=== PATIENT | male | born 1960 | race Caucasian/White ===

== ENCOUNTER 2023-12-07 13:41 | Inpatient (IN) ==
[2023-12-07] MEDS: SODIUM CHLORIDE 0.9% 1,000 ML IV SCH ×2 (14:02→17:23)
--- NOTE | 2023-12-07 14:12 | Emergency Department Note ---
Impression & Plan ALAYNA (acute kidney injury), Sepsis, Severe dehydration, SBO (small bowel obstruction), Abnormal CT scan, pelvis, Acute renal failure ED Provider Note NAME: KISHAN MANN AGE: 63 SEX: M : 1960 ARRIVES VIA: Walk-In INFORMANT: Patient, patient's family ED PROVIDER(S): Sylvester Parkinson DO CHIEF COMPLAINT: Weakness HPI: The patient is a 63-year-old male who presented to the emergency department for an evaluation of generalized weakness. He has had several days of diarrhea. He has been having nausea vomiting as well. The patient denies having any fever. He denies having any upper or lower GI bleeding. The patient was seen by his family doctor initially. The patient continued to have worsening symptoms and today is having severe weakness. This is why the patient came to the emergency department today. The patient has a history of appendectomy many years ago. ROS: See above HPI for pertinent positives & negatives. A total of 10 systems reviewed and were otherwise negative. PAST MEDICAL HISTORY: See Below PAST SURGICAL HISTORY: See Below FAMILY HISTORY: See Below SOCIAL HISTORY: See Below HOME MEDICATIONS: See Below ALLERGIES: See Below VITALS: See Below PHYSICAL EXAMINATION: GENERAL: Is awake and alert. He is comfortable appearing. EYES: The conjunctivae are clear. The pupils are round and reactive. EARS, NOSE, MOUTH AND THROAT: The nose is without any evidence of any deformity. Mucous membranes are. NECK: The neck is nontender and supple. RESPIRATORY: Normal respiratory effort is noted there is no evidence of wheezing rhonchi or rales CARDIOVASCULAR: Regular rate and rhythm noted there no murmurs rubs or gallops normal S1 normal S2. GASTROINTESTINAL: The abdomen is soft. Abdomen is nontender. MUSCULOSKELETAL/EXTREMITIES: There is no evidence of gross deformity full range of motion is noted in the hips and shoulders. SKIN: There is no obvious evidence of any rash. There are no petechiae, pallor or cyanosis noted. NEUROLOGIC: Patient is awake alert and oriented x3 MEDICAL DECISION MAKING: The patient is a 63-year-old male who presented to the emergency department for an evaluation of generalized weakness. The patient has been having problems with diarrhea and vomiting over the course the last several days. The patient was brought directly to a resuscitation room. His blood pressure was very low. He was awake and alert. He does not have any specific complaints but given his low blood pressure a septic workup was undertaken. He was treated with vigorous IV fluids. He was also treated with IV antibiotics for possible sepsis. Consideration was made for an intra-abdominal source. Ultimately the patient was found to have signs of a partial small bowel obstruction. He may also have signs of metastatic disease on the CT. I discussed the patient's laboratory and radiographic studies with him and his family. I discussed his condition with the on-call [facility]. They have agreed to evaluate the patient. They also consulted surgery. The patient did have a Salvador catheter placed and started making urine eventually. He was feeling much better. Blood pressure improved. Triage Nursing notes reviewed. Prior medical records reviewed Vital Signs: reviewed and remarkable for initial hypotension and tachycardia. Differential diagnosis: Etiologies such as appendicitis, diverticulitis, obstruction, inflammatory bowel disease, renal colic, PUD, biliary pathology, pancreatitis, mesenteric ischemia, aortic pathology, infections, genitourinary, UTI, perforated viscus, as well as others were entertained. ER treatment provided: See below Diagnostics interpreted by me: ECG: EKG was obtained in the emergency department. My interpretation is normal sinus rhythm at 98 bpm. There was no ectopy. Poor R wave progression was noted. No previous tracing was available. Cardiac Monitoring: An order was placed for continuous cardiac monitoring. The monitor shows a rate of 104 bpm with sinus rhythm. Laboratory studies: As stated above and show below. Imaging studies: See below. Radiographic imaging was reviewed by myself Consultation(s): I did kacie this case with Keiko who is on for the [facility] group. ED COURSE: Procedures: none Critical Care: I have personally spent greater than 45 minutes of critical care time in the direct management of this patient. This includes bedside care, interpretation of diagnostic studies, and testing, discussion with consultants, patient, and family members, and other required patient management activities. This 45 minutes is in excess of all separately billable procedures. Past Med/Surg History Problem List (Updated 12/07/23 @ 18:36 by Sylvester Parkinson DO) Acute renal failure (Acute) ALAYNA (acute kidney injury) (Acute) Abnormal CT scan, pelvis (Acute) SBO (small bowel obstruction) (Acute) Severe dehydration (Acute) Sepsis (Acute) Medical History (Updated 12/07/23 @ 18:36 by Sylvester Parkinson DO) HTN (hypertension) GERD (gastroesophageal reflux disease) Obesity (BMI 30-39.9) Diabetes mellitus, type II Surgical History (Updated 12/07/23 @ 16:41 by Keiko Mooney PA-C) History of appendectomy Family History Other Liver cancer Social History Smoking Status: Never smoker Hx Alcohol Use: No Hx Substance Use: No Preferred Language: Nigerian Communication Ability: Effective Retail Maintenance Technician Required: No Beliefs That Will Affect Care: None Current Living Situation: Spouse Other Information That Helps Us Care for You: No Feels Safe at Home: Yes Safety Concerns: Feels Safe At This Time Assistive Devices: CPAP Allergies Allergies Allergy/AdvReac Type Severity Reaction Status Date / Time Penicillins Allergy Unknown rash as a Verified 12/07/23 14:53 kid Home Meds Home Medications Medication Instructions Recorded Confirmed atorvastatin 20 mg tablet 20 mg PO QAM 12/07/23 12/07/23 dulaglutide 0.75 mg/0.5 mL 0.75 mg subcut WK 12/07/23 12/07/23 subcutaneous pen injector (Trulicity) lisinopril 10 1 tab PO QAM 12/07/23 12/07/23 mg-hydrochlorothiazide 12.5 mg tablet omeprazole 40 mg capsule,delayed 40 mg PO DAILYBB 12/07/23 12/07/23 release ondansetron 4 mg disintegrating 4 mg translingual Q8 PRN Nausea 12/07/23 12/07/23 tablet Results & Data (ED) Vital Signs Vital Signs - 24 hr 12/07/23 13:42 12/07/23 13:59 12/07/23 14:20 Temperature 36.6 C Temperature Source Temporal Artery Scan Pulse Rate 68 96 H Pulse Rate [Apical] Pulse Rate from SpO2 Sensor Respiratory Rate 18 Blood Pressure 52/35 L Blood Pressure [Left Arm] 85/54 L Blood Pressure Mean 40 Blood Pressure Mean [Left Arm] 64 Pulse Oximetry 100 97 Oxygen Delivery Method Room Air Sepsis Recent Fever Within 48 Hours No Sepsis New/Unexplained Change in Mental Status N/A Sepsis Action Taken by Nursing No Action Required 12/07/23 14:24 12/07/23 14:55 12/07/23 15:03 Temperature Temperature Source Pulse Rate Pulse Rate [Apical] 90 94 H Pulse Rate from SpO2 Sensor Respiratory Rate 20 22 Blood Pressure Blood Pressure [Left Arm] 85/54 L 105/64 99/61 L Blood Pressure Mean Blood Pressure Mean [Left Arm] 64 77 73 Pulse Oximetry 97 95 Oxygen Delivery Method Room Air Sepsis Recent Fever Within 48 Hours Sepsis New/Unexplained Change in Mental Status Sepsis Action Taken by Nursing 12/07/23 15:33 Temperature Temperature Source Pulse Rate 92 H Pulse Rate [Apical] Pulse Rate from SpO2 Sensor 91 H Respiratory Rate 17 Blood Pressure 105/56 L Blood Pressure [Left Arm] Blood Pressure Mean 72 Blood Pressure Mean [Left Arm] Pulse Oximetry 100 Oxygen Delivery Method Sepsis Recent Fever Within 48 Hours Sepsis New/Unexplained Change in Mental Status Sepsis Action Taken by Group Home Medications Current Medication List: was personally reviewed by me Laboratory Data Attestation: I reviewed the patient's lab results. 12/07/23 Unknown 12/07/23 Unknown Lab Results 12/07/23 12/07/23 12/07/23 Range/Units 14:07 14:38 15:50 POC Hgb 12.9 L (14.0-18.0) g/dl POC Hct 38 L (42-52) % VBG pH 7.31 L (7.36-7.41) VBG pCO2 18 L (38-50) mmHg VBG pO2 24 mmHg VBG HCO3 9 mmol/L VBG O2 Saturation < 60.0 % VBG Base Excess -15.7 mEq/L POC Sodium 127 L (135-144) mmol/L POC Potassium 3.7 (3.3-5.0) mmol/L POC Chloride 91 L (101-112) mmol/L POC Total CO2 19 L (24-31) mmol/L POC Anion Gap 22.0 (16-25) mmol/L POC BUN 54 H (7-18) mg/dl POC Creatinine 6.1 H* (0.6-1.3) mg/dl POC Glucose (other) 149 H (70-99) mg/dl Lactate (0.4-2.0) mmol/L POC Ioniz Calcium Ruddy 1.02 L (1.12-1.32) mmol/l Urine Color Dark Yellow Urine Appearance Cloudy A (Clear) Urine pH 5.0 (4.5-7.5) Ur Specific [place] 1.020 (1.000-1.030) Urine Protein 2+ H (Negative) Urine Glucose (UA) Negative (Negative) Urine Ketones Trace H (Negative) Urine Blood Negative (Negative) Urine Nitrite Negative (Negative) Urine Bilirubin Negative (Negative) Urine Urobilinogen Negative (Negative) Ur Leukocyte Esterase 1+ H (Negative) Urine WBC (Auto) 6-10 H (0-5) /hpf Urine RBC (Auto) 11-20 H (0-2) /hpf U Hyaline Cast (Auto) >20 H (0-2) /lpf U Epithel Cells (Auto) 3-5 H (0-2) /hpf Urine Bacteria (Auto) None Seen (None Seen) Hyaline Casts Present A (None Presnt) /lpf 12/07/23 Range/Units 16:05 POC Hgb (14.0-18.0) g/dl POC Hct (42-52) % VBG pH (7.36-7.41) VBG pCO2 (38-50) mmHg VBG pO2 mmHg VBG HCO3 mmol/L VBG O2 Saturation % VBG Base Excess mEq/L POC Sodium (135-144) mmol/L POC Potassium (3.3-5.0) mmol/L POC Chloride (101-112) mmol/L POC Total CO2 (24-31) mmol/L POC Anion Gap (16-25) mmol/L POC BUN (7-18) mg/dl POC Creatinine (0.6-1.3) mg/dl POC Glucose (other) (70-99) mg/dl Lactate 1.9 (0.4-2.0) mmol/L POC Ioniz Calcium Ruddy (1.12-1.32) mmol/l Urine Color Urine Appearance (Clear) Urine pH (4.5-7.5) Ur Specific [place] (1.000-1.030) Urine Protein (Negative) Urine Glucose (UA) (Negative) Urine Ketones (Negative) Urine Blood (Negative) Urine Nitrite (Negative) Urine Bilirubin (Negative) Urine Urobilinogen (Negative) Ur Leukocyte Esterase (Negative) Urine WBC (Auto) (0-5) /hpf Urine RBC (Auto) (0-2) /hpf U Hyaline Cast (Auto) (0-2) /lpf U Epithel Cells (Auto) (0-2) /hpf Urine Bacteria (Auto) (None Seen) Hyaline Casts (None Presnt) /lpf Administered Medications Sodium Chloride (Nss) 1,000 mls @ 125 mls/hr IV .Q8H RANJIT Stop: 01/06/24 16:29 Last Admin: 12/07/23 17:23 Dose: 125 mls/hr Documented By: MR Discontinued Medications Sodium Chloride (Nss) 1,000 mls @ 999 mls/hr IV .Q1H1M RANJIT Stop: 12/07/23 16:00 Last Infusion: 12/07/23 16:29 Dose: Infused Documented By: Admin: 12/07/23 14:21 Dose: 999 mls/hr Documented By: Infusion: 12/07/23 14:21 Dose: Infused Documented By: Admin: 12/07/23 14:02 Dose: 999 mls/hr Documented By: HS Lactated Ringer's (Lr) 1,000 mls @ 999 mls/hr IV .Q1H1M ONE Stop: 12/07/23 15:48 Last Infusion: 12/07/23 17:07 Dose: Infused Documented By: Admin: 12/07/23 15:04 Dose: 999 mls/hr Documented By: HS Cefepime HCl (Maxipime 2000mg) 2,000 mg in 20 mls @ 5 mls/min IV NOW STA; Protocol Stop: 12/07/23 14:52 Last Admin: 12/07/23 14:59 Dose: 5 mls/min Documented By: HS Metronidazole (Flagyl) 500 mg in 100 mls @ 100 mls/hr IV NOW STA; Protocol Stop: 12/07/23 15:48 Last Infusion: 12/07/23 16:29 Dose: Infused Documented By: Admin: 12/07/23 15:00 Dose: 100 mls/hr Documented By: HS Imaging Data Attestation: I personally reviewed and interpreted this imaging study as follows: My Impression: 1 view chest x-ray was obtained in the emergency department. My interpretation is no free air or signs of infiltrate, final report below. CT of the abdomen and pelvis was obtained in the emergency department. My interpretation is dilated loops of small bowel, no free air, final report below. Radiologist's Impression: Chest X-Ray 12/07/23 13:59 XR chest 1V portable CLINICAL HISTORY: Sepsis TECHNIQUE: Single frontal radiograph of the chest was obtained. Comparison: None available at the time of this dictation. FINDINGS: Exam is limited by underpenetration. The cardiomediastinal silhouette is normal. The lungs are clear. No evidence of pleural effusion or pneumothorax. IMPRESSION: No acute abnormalities and in particular no radiographic evidence of pneumonia. ACT 112: Negative or not required by law. Electronically signed by: Daren Velazco M.D. 12/07/2023 2:09 PM Abdomen/Pelvis CT 12/07/23 14:09 CT abd pelvis wo con CLINICAL HISTORY: renal failure TECHNIQUE: Helical axial images of the abdomen and pelvis were obtained. Automated dose lowering techniques and/or adjustment according to patient size were utilized for this exam. This exam was performed without intravenous contrast. CT DOSE: 1732.54 mGy.cm COMPARISON: None available at the time of this dictation. FINDINGS: Lower chest: No acute abnormality. Liver: Unremarkable. No focal lesions are seen. Gallbladder and biliary tree: No calcified gallstones. Normal caliber wall. No intra- or extrahepatic biliary ductal dilation. Pancreas: Fatty replacement of the pancreas is seen. Spleen: Unremarkable. Adrenals: Unremarkable. Kidneys and ureters: Unremarkable. Bladder: Limited evaluation due to underdistention. Reproductive organs: Unremarkable. Bowel: Diverticulosis is seen without diverticulitis. The appendix is normal. Multiple small bowel loops are dilated measuring up to 42 mm in diameter. No transition point is seen. Lymph nodes Retroperitoneal: Unremarkable. Pelvic: Unremarkable. Mesenteric: Subcentimeter lymph nodes are noted. Peritoneum: Fat stranding is seen about ill-defined mid abdominal soft tissue density measuring 41 x 34 mm. There is also an ill-defined soft tissue density in the left posterior bowel. Vessels: Atherosclerotic calcifications are seen. Abdominal wall: Unremarkable. Bones: Unremarkable. IMPRESSION: 1. Partial small bowel obstruction is seen. The large bowel is not completely under distended and no definite transition point is seen. 2. 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 These may be related to development of obstruction. ACT 112: Positive. There are findings on this exam that require communication between the performing entity and the patient following Patient Test Result Information Act [place] Act 112) guidelines. Electronically signed by: Daren Velazco M.D. 12/07/2023 3:06 PM Discharge Plan Visit Data Chief Complaint: Flu Like Symptoms Stated Complaint: NAUSEA, VOMITING, DIARRHEA, WEIGHT LOSS/40LBS ED Provider: Sylvester Parkinson Discharge Problem: ALAYNA (acute kidney injury), Sepsis, Severe dehydration, SBO (small bowel obstruction), Abnormal CT scan, pelvis, Acute renal failure Patient Disposition: Admitted As Inpatient Discharge Instructions Interventions: ED Discharge Assessment Last Done: 12/07/23 18:07 Discharge Problem: Sepsis Qualifiers: Sepsis type: sepsis due to unspecified organism Sepsis acute organ dysfunction status: unspecified Qualified Code(s): A41.9 - Sepsis, unspecified organism Acute renal failure Qualifiers: Acute renal failure type: unspecified Qualified Code(s): N17.9 - Acute kidney failure, unspecified
[2023-12-07 14:20] LABS: iSTAT Creatinine 6.1 mg/dl (0.6-1.3); iSTAT Hemoglobin 12.9 g/dl (14.0-18.0); iSTAT Ionized Calcium 1.02 mmol/l (1.12-1.32); iSTAT Potassium 3.7 mmol/L (3.3-5.0)
[2023-12-07 14:26] LABS: Hematocrit (blood only) 35.6 % (42.0-52.0); Hemoglobin 11.9 g/dl (14.0-18.0); Mean Corpuscular Hemoglobin 25.4 pg (25.0-34.0); Mean Corpuscular Hgb Conc 33.4 g/dL (32.0-36.0); Mean Corpuscular Volume 76.1 fL (80.0-100.0); Mean Platelet Volume 11.5 fL (9.4-12.4); Platelet Count 362 K/uL (130-400); RDW Coefficient of Variation 19.8 % (11.5-14.5); RDW Standard Deviation 52.8 fL (36.4-46.3); Red Blood Count 4.68 M/uL (4.70-6.10); White Blood Count 24.48 K/ul (4.8-10.8)
[2023-12-07 14:43] LABS: Base Excess VBG -15.7 mEq/L; HCO3 VBG 9 mmol/L; Oxygen Saturation VBG < 60.0 %; PCO2 VBG 18 mmHg (38-50); PO2 VBG 24 mmHg; pH VBG 7.31 (7.36-7.41)
[2023-12-07 14:43] LABS: Basophils # (auto) 0.08 K/uL (0.00-0.20); Basophils % (auto) 0.3 %; Dohle Bodies 1+; Echinocytes 1+; Eosinophils # (auto) 0.01 K/uL (0.00-0.50); Immature Granulocytes # (auto) 0.14 K/uL (0.01-0.20); Immature Granulocytes % (auto) 0.6 %; Lymphocytes # (auto) 1.99 K/uL (1.20-3.40); Lymphocytes % (auto) 8.1 %; Monocytes # (auto) 2.07 K/uL (0.11-0.59); Monocytes % (auto) 8.5 %; Neutrophils # (auto) 20.19 K/uL (1.40-6.50); Neutrophils % (auto) 82.5 %; Toxic Vacuolation 1+
[2023-12-07 14:47] LABS: Albumin Level 3.6 gm/dl (3.4-5.0); BUN Creatinine Ratio 11.2 (10-20); Bilirubin Direct 0.4 mg/dl (0-0.2); Calcium 8.5 mg/dl (8.6-10.3); Creatinine Clr Calc Pharmacy 18.3 ml/min; Magnesium 1.7 mg/dl (1.7-2.4); Potassium 3.7 mmol/L (3.5-5.1); Total Protein 7.7 gm/dl (6.0-8.3); Troponin I High Sensitivity 16.7 pg/ml (0-20)
[2023-12-07] MEDS ORDERED: cefOXitin 2,000 MG/60 ML BAG IV STA (14:47)
[2023-12-07] MEDS: CEFEPIME 2000MG 2,000 MG/20 ML SYR IV STA (14:59)
[2023-12-07] MEDS: metroNIDAZOLE 500 MG/100 ML BAG IV STA (15:00)
[2023-12-07] MEDS: LACTATED RINGER'S 1,000 ML IV ONE (15:04)
--- NOTE | 2023-12-07 15:07 | CT Scan Report ---
CT abd pelvis wo con CLINICAL HISTORY: renal failure TECHNIQUE: Helical axial images of the abdomen and pelvis were obtained. Automated dose lowering tech niques and/or adjustment according to patient size were utilized for this exam. This exam was perfor med without intravenous contrast. CT DOSE: 1732.54 mGy.cm COMPARISON: None available at the time of this dictation. FINDINGS: Lower chest: No acute abnormality. Liver: Unremarkable. No focal lesions are seen. Gallbladder and biliary tree: No calcified gallstones. Normal caliber wall. No intra- or extrahepatic biliary ductal dilation. Pancreas: Fatty replacement of the pancreas is seen. Spleen: Unremarkable. Adrenals: Unremarkable. Kidneys and ureters: Unremarkable. Bladder: Limited evaluation due to underdistention. Reproductive organs: Unremarkable. Bowel: Diverticulosis is seen without diverticulitis. The appendix is normal. Multiple small bowel lo ops are dilated measuring up to 42 mm in diameter. No transition point is seen. Lymph nodes Retroperitoneal: Unremarkable. Pelvic: Unremarkable. Mesenteric: Subcentimeter lymph nodes are noted. Peritoneum: Fat stranding is seen about ill-defined mid abdominal soft tissue density measuring 41 x 34 mm. There is also an ill-defined soft tissue density in the left posterior bowel. Vessels: Atherosclerotic calcifications are seen. Abdominal wall: Unremarkable. Bones: Unremarkable. IMPRESSION: 1. Partial small bowel obstruction is seen. The large bowel is not completely under distended and no definite transition point is seen. 2. There are ill-defined mesenteric densities concerning for peritoneal deposits of metastatic disea se with unknown primary. These may be related to development of obstruction. ACT 112: Positive. There are findings on this exam that require communication between the performing entity and the patient following Patient Test Result Information Act [place] Act 112) guidelines. Electronically signed by: Daren Velazco M.D. 12/07/2023 3:06 PM
[2023-12-07 15:31] LABS: INR 1.2 (0.9-1.1); Partial Thromboplastin Ratio 1.4; Partial Thromboplastin Time 37 Seconds (21-31); Prothrombin Time 12.8 Seconds (9.0-12.0)
--- NOTE | 2023-12-07 15:47 | History & Physical Report ---
Date of Service December 07, 2023 Assessment & Plan (1) Sepsis: (2) Severe dehydration: (3) SBO (small bowel obstruction): (4) Abnormal CT scan, pelvis: (5) ALAYNA (acute kidney injury): (6) HTN (hypertension): (7) Diabetes mellitus, type II: (8) GERD (gastroesophageal reflux disease): Plan This is a 63-year-old male with PMH of type 2 diabetes on Trulicity, dyslipidemia, RANDALL, hypertension, morbid obesity and other medical problems listed below who presents with 1 week of diarrhea, nausea and vomiting and found to have sepsis 2/2 gastroenteritis, partial SBO, ALAYNA and abnormal CT abd/pelvis. Sepsis Gastroenteritis ? Partial SBO BP initially 50/32 in triage, improved to 99/61 after 3 L fluid resuscitation. Continue NSS @ 125 ml/hr for now Diarrhea 1 wk prior, vomiting and diarrhea resumed yesterday Poor PO intake x [address] abd/pelvis with partial small bowel obstruction is seen. The large bowel is not completely under distended and no definite transition point is seen Continue Rocephin and Flagyl for ? GI illness Follow pending stool cx, c diff pending NPO for now Discussed case with gen surg who will evaluate in ED Abnormal CT abd/pelvis There are ill-defined mesenteric densities concerning for peritoneal deposits of metastatic disease with unknown primary. These may be related to development of obstruction 40 # weight loss in 6 months but has been on Trulicity Study is limited without contrast but concerning for metastatic disease of unknown primary Heme onc consulted for further guidance Acute kidney injury Cr 5.38 today in setting of severe dehydration Expect improvement with fluid resuscitation Continue NSS @ 125 ml/hr Hold hctz, lisinopril Repeating BMP @ 1999 Routine nephro consult Anion gap metabolic acidosis AG 19 in setting of poor PO intake for last week Expect improvement with fluid resuscitation Repeat BMP @ 2000 DM II A1c 7.9 in Oct 2023 Hold Trulicity BSG AC HS DVT Ppx: SQ heparin Code status: FULL PCP: Jennifer Dispo: Admitted to PCU Patient seen in collaboration with Dr. Roger. Please see addendum. I spent a total of 75 minutes coordinating, documenting, and providing care for this patient excluding time spent in the performance of separately billed services. History of Present Illness Chief Complaint: Vomiting, diarrhea Primary Care Provider: Ean Rodriguez MD This is a 63-year-old male with PMH of type 2 diabetes on Trulicity, dyslipidemia, RANDALL, hypertension, morbid obesity and other medical problems listed below who presents with 1 week of diarrhea, nausea and vomiting. Patient was seen in primary care office on 11/29 with diarrhea, abdominal cramping and loss of appetite that was felt to be consistent with gastroenteritis. GI symptoms, other than decreased appetite resolved after 1 day until yesterday, when he had 2 episodes of emesis. Describes the first as bilious and the second as a brown color. Denies hemetemesis. Then today endorses 3 large episodes of light brown, watery diarrhea prompting ED presentation. Was initially found to be severely hypotensive with BP in triage 50/32. Recevied 3L total IV fluid bolus with improved BP to 99/61. Just started to have urine output that is dark brown. Endorsing some vague discomfort in epigastrium but no pain. Denies F/C, lightheadedness, headache, CP, SOB, dysuria or constipation. No vomiting yet today and no recurrent diarrhea since arrival. Endorses a 40 pound weight loss since March but has also been on Trulicity. Denies personal known cancer history. Father + liver cancer. Allergies Allergy/AdvReac Type Severity Reaction Status Date / Time Penicillins Allergy Unknown rash as a Verified 12/07/23 14:53 kid Home Medications Medication Instructions Recorded Confirmed Type atorvastatin 20 mg tablet 20 mg PO QAM 12/07/23 12/07/23 History dulaglutide 0.75 mg/0.5 mL 0.75 mg subcut WK 12/07/23 12/07/23 History subcutaneous pen injector (Trulicity) lisinopril 10 1 tab PO QAM 12/07/23 12/07/23 History mg-hydrochlorothiazide 12.5 mg tablet omeprazole 40 mg capsule,delayed 40 mg PO DAILYBB 12/07/23 12/07/23 History release ondansetron 4 mg disintegrating 4 mg translingual Q8 PRN Nausea 12/07/23 12/07/23 History tablet Past Med/Surg History Problem List (Updated 12/07/23 @ 18:51 by Milady Kiser MD) Microcytic anemia Acute renal failure (Acute) ALAYNA (acute kidney injury) (Acute) Abnormal CT scan, pelvis (Acute) SBO (small bowel obstruction) (Acute) Severe dehydration (Acute) Sepsis (Acute) Medical History (Updated 12/07/23 @ 18:51 by Milady Kiser MD) HTN (hypertension) GERD (gastroesophageal reflux disease) Obesity (BMI 30-39.9) Diabetes mellitus, type II Surgical History (Updated 12/07/23 @ 16:41 by Keiko Mooney PA-C) History of appendectomy Family History Other Liver cancer Social History Smoking Status: Never smoker Hx Alcohol Use: No Hx Substance Use: No Preferred Language: Frisian Communication Ability: Effective 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 Physical Exam Physical Exam: Please see Dr. Roger's addendum for physical exam. Results & Data Results & Data Vital Signs (Past 12 Hours) Vital Signs Temp Pulse Pulse Resp BP BP Pulse Ox 12/07/23 15:03 94 H 22 99/61 L 95 12/07/23 14:55 105/64 12/07/23 14:24 90 20 85/54 L 97 12/07/23 14:20 85/54 L 97 12/07/23 13:59 96 H 12/07/23 13:42 36.6 C 68 18 52/35 L 100 O2 Del Method 12/07/23 15:03 12/07/23 14:55 12/07/23 14:24 Room Air 12/07/23 14:20 12/07/23 13:59 12/07/23 13:42 Room Air Laboratory Results Short CBC 12/07/23 Range/Units Unknown WBC 24.48 H (4.8-10.8) K/ul Hgb 11.9 L (14.0-18.0) g/dl Hct 35.6 L (42.0-52.0) % Plt Count 362 (130-400) K/uL BMP 12/07/23 Unknown Sodium 128 L Potassium 3.7 Chloride 89 L Carbon Dioxide 20 L BUN 60 H Creatinine 5.38 H* Glucose 150 H Calcium 8.5 L Liver Function 12/07/23 Range/Units Unknown Total Bilirubin 1.0 (0.2-1.0) mg/dl Direct Bilirubin 0.4 H (0-0.2) mg/dl AST 13 (13-39) U/L ALT 12 (7-52) U/L Alkaline Phosphatase 107 H (34-104) U/L Albumin 3.6 (3.4-5.0) gm/dl Diagnostic Findings Chest X-Ray 12/07/23 13:59 XR chest 1V portable CLINICAL HISTORY: Sepsis TECHNIQUE: Single frontal radiograph of the chest was obtained. Comparison: None available at the time of this dictation. FINDINGS: Exam is limited by underpenetration. The cardiomediastinal silhouette is normal. The lungs are clear. No evidence of pleural effusion or pneumothorax. IMPRESSION: No acute abnormalities and in particular no radiographic evidence of pneumonia. ACT 112: Negative or not required by law. Electronically signed by: Daren Velazco M.D. 12/07/2023 2:09 PM Abdomen/Pelvis CT 12/07/23 14:09 CT abd pelvis wo con CLINICAL HISTORY: renal failure TECHNIQUE: Helical axial images of the abdomen and pelvis were obtained. Automated dose lowering techniques and/or adjustment according to patient size were utilized for this exam. This exam was performed without intravenous contrast. CT DOSE: 1732.54 mGy.cm COMPARISON: None available at the time of this dictation. FINDINGS: Lower chest: No acute abnormality. Liver: Unremarkable. No focal lesions are seen. Gallbladder and biliary tree: No calcified gallstones. Normal caliber wall. No intra- or extrahepatic biliary ductal dilation. Pancreas: Fatty replacement of the pancreas is seen. Spleen: Unremarkable. Adrenals: Unremarkable. Kidneys and ureters: Unremarkable. Bladder: Limited evaluation due to underdistention. Reproductive organs: Unremarkable. Bowel: Diverticulosis is seen without diverticulitis. The appendix is normal. Multiple small bowel loops are dilated measuring up to 42 mm in diameter. No transition point is seen. Lymph nodes Retroperitoneal: Unremarkable. Pelvic: Unremarkable. Mesenteric: Subcentimeter lymph nodes are noted. Peritoneum: Fat stranding is seen about ill-defined mid abdominal soft tissue density measuring 41 x 34 mm. There is also an ill-defined soft tissue density in the left posterior bowel. Vessels: Atherosclerotic calcifications are seen. Abdominal wall: Unremarkable. Bones: Unremarkable. IMPRESSION: 1. Partial small bowel obstruction is seen. The large bowel is not completely under distended and no definite transition point is seen. 2. 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 These may be related to development of obstruction. ACT 112: Positive. There are findings on this exam that require communication between the performing entity and the patient following Patient Test Result Information Act [place] Act 112) guidelines. Electronically signed by: Daren Velazco M.D. 12/07/2023 3:06 PM Supervising Physician Co-Signing Physician Notes 63 yo M w/ PMH Of T2DM, RANDALL, HTN, Morbid obesity, GERD presented to ED with complain of abdominal issues and generalized weakness. Pt reports he had diarrhea for 1 day, about a week ago, then had vomiting yesterday and about 3 diarrhea today AM which triggered him to come to ED. He reports he had poor appetite all along last 7-8 days. He denies Fever/sore throat/cough/chest pain /palpitation. He reports belly pain but non tender on bedside exam. He denies pain and burning while passing urine. Family confirms that pt feels/looks significantly better than at presentation during bedside exam. He denies smoking, reports few times/month of alc drink, denies recreational drug use. Full code per d/w pt and his family at bedside. Active problems: Gastroenteritis/Sepsis 2/2 gastroenteritis: stool pcr, npo, ivf - nss at 125 ml/hr, rocephin and flagyl for now. received cefepime and flagyl at ed. ALAYNA: Cr 0.9 in mar 2023, admitting cr of 5.38. likely prerenal given poor po intake and diarrhea/vomiting. s/p 1 L IVF in ED, c/w NSS at 125 ml/hr. Hold HCTZ lisinopril. Repeat BMP at 2000hrs Mild hyponatremia/AGMA: Likely secondary to poor p.o. intake, continue with IV fluid, expect to improve with improvement in hydration. Partial small bowel obstruction: Noted in CTAP, general surgery consult, n.p.o., IV fluids, abdomen nontender on exam. Abnormal CTAP: Ill-defined mesenteric densities concerning for peritoneal deposits of metastatic disease with unknown primary. Given acute kidney injury we are limited with contrast use at this point. Further studies once renal function improves, oncology consult for guidance w/ w/u. Diabetes: Sliding scale, hold Trulicity. Leucocytosis and increased blood lactate level: iso gastroenteritis, procal elevated. c/w rocephin and flagyl. follow admitting blood culture. On exam: GENERAL: Alert and oriented x3. NAD, on RA. appear weak/frail. Morbid obese. HEENT: No pallor, no icterus. Pupils equal, round and reactive to light. Oral mucosa dry. NECK: No JVD, no neck masses. HEART: S1 and S2 heard. Regular rate and rhythm. HR in 90s. No murmur, no gallop. RESPIRATORY SYSTEM: Normal AP diameter. No accessory muscle use. No wheezing, no crackles. ABDOMEN: Soft, bowel sounds present, nontender, no distention. CENTRAL NERVOUS SYSTEM: No facial droop. Speech is clear. Obeys simple commands. Moves extremities. EXTREMITIES: No edema, no erythema seen. UC w/ darker urine x minimal collection in bag. I have seen and examined the patient and have discussed the case with the provider above. I agree with the assessment and plan as stated. Time spent: 40 min
--- NOTE | 2023-12-07 16:13 | Surgery Consultation ---
Date of Consultation December 07, 2023 Assessment & Plan (1) Abnormal CT scan, pelvis: (2) ALAYNA (acute kidney injury): (3) SBO (small bowel obstruction): (4) Sepsis: (5) Severe dehydration: 63-year-old male with a history of diarrhea starting on November 29 with subsequent low appetite, fatigue, weakness, nausea and vomiting that started yesterday presenting to the emergency room with generalized weakness and was found to have significant hypotension with systolic blood pressure in the 50s. CT scan of the abdomen pelvis without contrast due to acute kidney injury showing dilated small intestine up to 4 cm however no transition zone concerning for possible partial small bowel obstruction. There is also evidence of mesenteric masses which could be consistent with metastatic disease of unknown primary. He is currently stable blood pressure improved after 2 L of IV fluids his abdomen is not distended and is currently not having any abdominal pain. Abdominal examination is benign. There is no acute surgical intervention required at this time. Recommend conservative management for possible partial small bowel obstruction however less likely given patient's ongoing diarrhea. Recommend n.p.o. for bowel rest, IV fluids, pain management and antiemetics as needed. Further medical and oncological workup for the mesenteric masses. May want to consider IR biopsy for minimally invasive procedure. Will follow along. Dr. Anguiano has seen and examined patient and agrees with above History of Present Illness Reason for Consultation: SBO Requesting Physician: Keiko Mooney PA-C Attending Physician: MD Kana History of Present Illness This is a 63-year-old male with a past medical history of type 2 diabetes on Trulicity, dyslipidemia, hypertension, morbid obesity and other medical problems who presented to the emergency room with 1 week of diarrhea that started on November 29 and family doctor felt it was consistent with gastroenteritis. He then developed nausea and vomiting yesterday and then diarrhea again today. he presented to the emergency room with increasing weakness and was found to have a systolic blood pressure of 50. He is status post 2 L of IV fluids with blood pressure improved with systolics in the high 90s. He currently states that he is not having any abdominal pain. Son and are present at bedside. Son is a trauma surgeon in [place]. He has had abdominal pain with cramping as well as loss of appetite. He has had a 40 pound weight loss since March. Last colonoscopy was 15 years ago. No family history of colon cancer.History of open appendectomy when he was 13 years old. No other abdominal surgeries. Allergies Allergy/AdvReac Type Severity Reaction Status Date / Time Penicillins Allergy Unknown rash as a Verified 12/07/23 14:53 kid Home Medications Medication Instructions Recorded Confirmed Type atorvastatin 20 mg tablet 20 mg PO QAM 12/07/23 12/07/23 History dulaglutide 0.75 mg/0.5 mL 0.75 mg subcut WK 12/07/23 12/07/23 History subcutaneous pen injector (Trulicity) lisinopril 10 1 tab PO QAM 12/07/23 12/07/23 History mg-hydrochlorothiazide 12.5 mg tablet omeprazole 40 mg capsule,delayed 40 mg PO DAILYBB 12/07/23 12/07/23 History release ondansetron 4 mg disintegrating 4 mg translingual Q8 PRN Nausea 12/07/23 12/07/23 History tablet Patient History Medical History (Updated 12/07/23 @ 16:25 by Keiko Mooney PA-C) HTN (hypertension) GERD (gastroesophageal reflux disease) Obesity (BMI 30-39.9) Diabetes mellitus, type II Family History Other Liver cancer Social History Smoking Status: Former smoker Preferred Language: Serbian Feels Safe at Home: Yes Review of Systems Review of Systems: All systems reviewed & are unremarkable except as noted in HPI & below Physical Exam Constitutional: WD/WN, vitals as above + ill appearing, + morbidly obese, cooperative and comfortable; no acute distress and not diaphoretic Respiratory: normal respiratory effort; no respiratory distress Gastrointestinal (Abdomen): Inspection/Auscultation: abdomen normal to inspection and + abdominal surgical scar (Right lower quadrant appendectomy scar); abdomen not distended Percussion/Palpation: abdomen soft; abdomen nontender, no guarding, abdomen not rigid and abdomen not firm Skin: no rashes, warm and dry Psychiatric: Orientation: alert and oriented x 3 Results & Data Vital Signs (Past 12 Hours) Vital Signs Temp Pulse Pulse Resp BP BP Pulse Ox 12/07/23 15:03 94 H 22 99/61 L 95 12/07/23 14:55 105/64 12/07/23 14:24 90 20 85/54 L 97 12/07/23 14:20 85/54 L 97 12/07/23 13:59 96 H 12/07/23 13:42 36.6 C 68 18 52/35 L 100 O2 Del Method 12/07/23 15:03 12/07/23 14:55 12/07/23 14:24 Room Air 12/07/23 14:20 12/07/23 13:59 12/07/23 13:42 Room Air Laboratory Results 12/07/23 12/07/23 12/07/23 Range/Units Unknown 16:05 15:50 WBC 24.48 H (4.8-10.8) K/ul RBC 4.68 L (4.70-6.10) M/uL Hgb 11.9 L (14.0-18.0) g/dl POC Hgb (14.0-18.0) g/dl Hct 35.6 L (42.0-52.0) % POC Hct (42-52) % MCV 76.1 L (80.0-100.0) fL MCH 25.4 (25.0-34.0) pg MCHC 33.4 (32.0-36.0) g/dL RDW Std Deviation 52.8 H (36.4-46.3) fL RDW Coeff of Mitchell 19.8 H (11.5-14.5) % Plt Count 362 (130-400) K/uL MPV 11.5 (9.4-12.4) fL Immature Gran % (Auto) 0.6 % Neut % (Auto) 82.5 % Lymph % (Auto) 8.1 % [place] % (Auto) 8.5 % Eos % (Auto) 0.0 % Baso % (Auto) 0.3 % Neut # (Auto) 20.19 H (1.40-6.50) K/uL Lymph # (Auto) 1.99 (1.20-3.40) K/uL [place] # (Auto) 2.07 H (0.11-0.59) K/uL Eos # (Auto) 0.01 (0.00-0.50) K/uL Baso # (Auto) 0.08 (0.00-0.20) K/uL Immature Gran # (Auto) 0.14 (0.01-0.20) K/uL Toxic Vacuolation 1+ Dohle Bodies 1+ Echinocytes 1+ PT 12.8 H (9.0-12.0) Seconds INR 1.2 H (0.9-1.1) APTT 37 H (21-31) Seconds PTT Ratio 1.4 VBG pH (7.36-7.41) VBG pCO2 (38-50) mmHg VBG pO2 mmHg VBG HCO3 mmol/L VBG O2 Saturation % VBG Base Excess mEq/L POC Sodium (135-144) mmol/L Sodium 128 L (136-145) mmol/L POC Potassium (3.3-5.0) mmol/L Potassium 3.7 (3.5-5.1) mmol/L POC Chloride (101-112) mmol/L Chloride 89 L (98-107) mmol/L Carbon Dioxide 20 L (21-32) mmol/L POC Total CO2 (24-31) mmol/L Anion Gap 19 H (3-11) POC Anion Gap (16-25) mmol/L POC BUN (7-18) mg/dl BUN 60 H (6-23) mg/dl Creatinine 5.38 H* (0.6-1.4) mg/dl POC Creatinine (0.6-1.3) mg/dl Est Cr Clr Drug Dosing 18.3 ml/min eGFR 11.09 BUN/Creatinine Ratio 11.2 (10-20) Glucose 150 H (70-99(Fasting)) mg/dl POC Glucose (other) (70-99) mg/dl Lactate 3.8 H* 1.9 (0.4-2.0) mmol/L Calcium 8.5 L (8.6-10.3) mg/dl POC Ioniz Calcium Ruddy (1.12-1.32) mmol/l Magnesium 1.7 (1.7-2.4) mg/dl Total Bilirubin 1.0 (0.2-1.0) mg/dl Direct Bilirubin 0.4 H (0-0.2) mg/dl AST 13 (13-39) U/L ALT 12 (7-52) U/L Alkaline Phosphatase 107 H (34-104) U/L Troponin I High Sens 16.7 (0-20) pg/ml Total Protein 7.7 (6.0-8.3) gm/dl Albumin 3.6 (3.4-5.0) gm/dl Procalcitonin 35.60 H (0-0.5) ng/ml Urine Color Pending Urine Appearance Pending Urine pH Pending Ur Specific Bradley Pending Urine Protein Pending Urine Glucose (UA) Pending Urine Ketones Pending Urine Blood Pending Urine Nitrite Pending Urine Bilirubin Pending Urine Urobilinogen Pending Ur Leukocyte Esterase Pending 12/07/23 12/07/23 Range/Units 14:38 14:07 WBC (4.8-10.8) K/ul RBC (4.70-6.10) M/uL Hgb (14.0-18.0) g/dl POC Hgb 12.9 L (14.0-18.0) g/dl Hct (42.0-52.0) % POC Hct 38 L (42-52) % MCV (80.0-100.0) fL MCH (25.0-34.0) pg MCHC (32.0-36.0) g/dL RDW Std Deviation (36.4-46.3) fL RDW Coeff of Mitchell (11.5-14.5) % Plt Count (130-400) K/uL MPV (9.4-12.4) fL Immature Gran % (Auto) % Neut % (Auto) % Lymph % (Auto) % [place] % (Auto) % Eos % (Auto) % Baso % (Auto) % Neut # (Auto) (1.40-6.50) K/uL Lymph # (Auto) (1.20-3.40) K/uL [place] # (Auto) (0.11-0.59) K/uL Eos # (Auto) (0.00-0.50) K/uL Baso # (Auto) (0.00-0.20) K/uL Immature Gran # (Auto) (0.01-0.20) K/uL Toxic Vacuolation Dohle Bodies Echinocytes PT (9.0-12.0) Seconds INR (0.9-1.1) APTT (21-31) Seconds PTT Ratio VBG pH 7.31 L (7.36-7.41) VBG pCO2 18 L (38-50) mmHg VBG pO2 24 mmHg VBG HCO3 9 mmol/L VBG O2 Saturation < 60.0 % VBG Base Excess -15.7 mEq/L POC Sodium 127 L (135-144) mmol/L Sodium (136-145) mmol/L POC Potassium 3.7 (3.3-5.0) mmol/L Potassium (3.5-5.1) mmol/L POC Chloride 91 L (101-112) mmol/L Chloride (98-107) mmol/L Carbon Dioxide (21-32) mmol/L POC Total CO2 19 L (24-31) mmol/L Anion Gap (3-11) POC Anion Gap 22.0 (16-25) mmol/L POC BUN 54 H (7-18) mg/dl BUN (6-23) mg/dl Creatinine (0.6-1.4) mg/dl POC Creatinine 6.1 H* (0.6-1.3) mg/dl Est Cr Clr Drug Dosing ml/min eGFR BUN/Creatinine Ratio (10-20) Glucose (70-99(Fasting)) mg/dl POC Glucose (other) 149 H (70-99) mg/dl Lactate (0.4-2.0) mmol/L Calcium (8.6-10.3) mg/dl POC Ioniz Calcium Ruddy 1.02 L (1.12-1.32) mmol/l Magnesium (1.7-2.4) mg/dl Total Bilirubin (0.2-1.0) mg/dl Direct Bilirubin (0-0.2) mg/dl AST (13-39) U/L ALT (7-52) U/L Alkaline Phosphatase (34-104) U/L Troponin I High Sens (0-20) pg/ml Total Protein (6.0-8.3) gm/dl Albumin (3.4-5.0) gm/dl Procalcitonin (0-0.5) ng/ml Urine Color Urine Appearance Urine pH Ur Specific Bradley Urine Protein Urine Glucose (UA) Urine Ketones Urine Blood Urine Nitrite Urine Bilirubin Urine Urobilinogen Ur Leukocyte Esterase Diagnostic Findings CT abd pelvis wo con CLINICAL HISTORY: renal failure TECHNIQUE: Helical axial images of the abdomen and pelvis were obtained. Automated dose lowering techniques and/or adjustment according to patient size were utilized for this exam. This exam was performed without intravenous contrast. CT DOSE: 1732.54 mGy.cm COMPARISON: None available at the time of this dictation. FINDINGS: Lower chest: No acute abnormality. Liver: Unremarkable. No focal lesions are seen. Gallbladder and biliary tree: No calcified gallstones. Normal caliber wall. No intra- or extrahepatic biliary ductal dilation. Pancreas: Fatty replacement of the pancreas is seen. Spleen: Unremarkable. Adrenals: Unremarkable. Kidneys and ureters: Unremarkable. Bladder: Limited evaluation due to underdistention. Reproductive organs: Unremarkable. Bowel: Diverticulosis is seen without diverticulitis. The appendix is normal. Multiple small bowel loops are dilated measuring up to 42 mm in diameter. No transition point is seen. Lymph nodes Retroperitoneal: Unremarkable. Pelvic: Unremarkable. Mesenteric: Subcentimeter lymph nodes are noted. Peritoneum: Fat stranding is seen about ill-defined mid abdominal soft tissue density measuring 41 x 34 mm. There is also an ill-defined soft tissue density in the left posterior bowel. Vessels: Atherosclerotic calcifications are seen. Abdominal wall: Unremarkable. Bones: Unremarkable. IMPRESSION: 1. Partial small bowel obstruction is seen. The large bowel is not completely under distended and no definite transition point is seen. 2. 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 These may be related to development of obstruction.
--- NOTE | 2023-12-07 16:18 | Electrocardiogram Report ---
Test Reason : Blood Pressure : */* mmHG Vent. Rate : 98 BPM Atrial Rate : 98 BPM P-R Int : 146 ms QRS Dur : 96 ms QT Int : 390 ms P-R-T Axes : 77 -33 71 degrees QTcB Int : 497 ms Normal sinus rhythm Left axis deviation Low voltage QRS Poor R wave progression, consider anterior [place] vs. lead placement vs. LVH Abnormal ECG No previous ECGs available Confirmed by Ean Knox ([id number]) on 12/07/2023 4:17:53 PM Referred By: REFERRED SELF Confirmed By: Ean Knox
[2023-12-07] MEDS ORDERED: CARBOHYDRATES FOR HYPOGLYCEMIA PO PRN (16:43)
[2023-12-07] MEDS ORDERED: DEXTROSE 50% 50 ML SYRINGE IV PRN (16:43)
[2023-12-07] MEDS ORDERED: GLUCAGON FOR INJ 1 MG VIAL SQ PRN (16:43)
[2023-12-07] MEDS ORDERED: GLUCOSE 10 TAB/TUBE PO PRN (16:43)
[2023-12-07] MEDS ORDERED: GLUCOSE 40% GEL 15 GM TUBE PO PRN (16:43)
[2023-12-07 16:51] LABS: Appearance Urine Cloudy (Clear); Bacteria Urine Automated None Seen (None Seen); Bilirubin Urine Negative (Negative); Blood Urine Negative (Negative); Cast Urine Automated >20 /lpf (0-2); Color Urine Dark Yellow; Glucose Urine UA Negative (Negative); Hyaline Casts Urine Present /lpf (None Presnt); Ketones Urine Trace (Negative); Leukocyte Esterase Urine 1+ (Negative); Nitrite Urine Negative (Negative); Protein Urine 2+ (Negative); Urobilinogen Urine Negative (Negative)
[2023-12-07] MEDS ORDERED: ACETAMINOPHEN 325 MG TAB PO PRN (18:09)
[2023-12-07] MEDS ORDERED: ONDANSETRON INJ 2 MG/ML 2 ML VIAL IV PRN (18:09)
--- NOTE | 2023-12-07 18:46 | Oncology Consultation ---
Date of Consultation December 07, 2023 Assessment & Plan (1) SBO (small bowel obstruction): (2) Acute renal failure: (3) Microcytic anemia: Plan 63-year-old gentleman who presented with GI complaints, hypotension, ALAYNA with imaging concerning for possible SBO, metastatic disease involving the mesentery. -Recommend obtaining labs including CEA, iron studies and LDH. -CT chest without contrast to assess for metastatic disease and more accessible site for biopsy -Recommend discussing with interventional radiology tomorrow to see if mesenteric lesions can be biopsied. If not possible, would recommend consideration for upper endoscopy/colonoscopy when stable. Thank you for this consult. Oncology will plan to follow-up on patient after biopsy is completed. Please feel free to call if you have any questions. History of Present Illness Reason for Consultation: ill-defined mesenteric densities, unknown primary Attending Physician: Jeet Roger MD History of Present Illness 63-year-old gentleman with medical history significant for type 2 diabetes mellitus, hypertension, obstructive sleep apnea who presented to the ER with nausea, vomiting and diarrhea. He states that diarrhea started about a week ago. Subsequently developed nausea and vomiting yesterday for which his son who is a trauma surgeon at [facility] recommended he present to the ER. On arrival to the ER, he was found to be hypotensive with blood pressure of 50/32 which improved with IV fluid hydration. Labs revealed leukocytosis with white cell count of 24,000, mild anemia with hemoglobin of 11.9, hematocrit of 35.6 and MCV of 76. CMP significant for sodium of 128, chloride of 89, BUN of 60 and creatinine of 5.3. Procalcitonin was elevated at 35. CT abdomen and pelvis without contrast revealed partial small bowel obstruction as well as ill-defined mesenteric densities concerning for peritoneal deposits of metastatic disease with unknown primary. He endorses about 40 pounds weight loss over the past 6 months which started shortly after starting Trulicity. He states that his last colonoscopy was many years ago. Has not had an upper endoscopy. Allergies Allergy/AdvReac Type Severity Reaction Status Date / Time Penicillins Allergy Unknown rash as a Verified 12/07/23 14:53 kid Home Medications Medication Instructions Recorded Confirmed Type atorvastatin 20 mg tablet 20 mg PO QAM 12/07/23 12/07/23 History dulaglutide 0.75 mg/0.5 mL 0.75 mg subcut WK 12/07/23 12/07/23 History subcutaneous pen injector (Trulicity) lisinopril 10 1 tab PO QAM 12/07/23 12/07/23 History mg-hydrochlorothiazide 12.5 mg tablet omeprazole 40 mg capsule,delayed 40 mg PO DAILYBB 12/07/23 12/07/23 History release ondansetron 4 mg disintegrating 4 mg translingual Q8 PRN Nausea 12/07/23 12/07/23 History tablet Patient History Medical History (Updated 12/07/23 @ 18:51 by Milady Kiser MD) HTN (hypertension) GERD (gastroesophageal reflux disease) Obesity (BMI 30-39.9) Diabetes mellitus, type II Surgical History (Updated 12/07/23 @ 16:41 by Keiko Mooney PA-C) History of appendectomy Family History Other Liver cancer Social History Smoking Status: Never smoker Hx Alcohol Use: No Hx Substance Use: No Preferred Language: Kyrgyz Communication Ability: Effective Health Care Facilities Inspector Required: No Beliefs That Will Affect Care: None Current Living Situation: Spouse Other Information That Helps Us Care for You: No Feels Safe at Home: Yes Safety Concerns: Feels Safe At This Time Assistive Devices: CPAP Results & Data Vital Signs (Past 12 Hours) Vital Signs Temp Pulse Pulse Resp BP BP Pulse Ox 12/07/23 18:11 36.7 C 104 H 18 101/65 99 12/07/23 17:30 89 20 99 12/07/23 17:30 86 18 106/57 L 100 12/07/23 17:00 76/54 L 12/07/23 16:48 89 17 83/54 L 98 12/07/23 16:15 92 H 20 97/59 L 100 12/07/23 15:33 92 H 17 105/56 L 100 12/07/23 15:03 94 H 22 99/61 L 95 12/07/23 14:55 105/64 12/07/23 14:24 90 20 85/54 L 97 12/07/23 14:20 85/54 L 97 12/07/23 13:59 96 H 12/07/23 13:42 36.6 C 68 18 52/35 L 100 O2 Del Method 12/07/23 18:11 Room Air 12/07/23 17:30 12/07/23 17:30 12/07/23 17:00 12/07/23 16:48 12/07/23 16:15 12/07/23 15:33 12/07/23 15:03 12/07/23 14:55 12/07/23 14:24 Room Air 12/07/23 14:20 12/07/23 13:59 12/07/23 13:42 Room Air (2) Acute renal failure Acute renal failure type: unspecified Qualified Code(s): N17.9 - Acute kidney failure, unspecified
[2023-12-07] MEDS ORDERED: Nursing to Pharmacy Communication SCH (19:30)
[2023-12-07] MEDS: cefTRIAXone SODIUM 2,000 MG/50 ML BAG IV SCH (19:33)
[2023-12-07] MEDS: HEPARIN SOD 5,000 UNIT/0.5 ML VIAL SQ SCH (19:41)
[2023-12-07 20:23] LABS: BUN Creatinine Ratio 15.7 (10-20); Calcium 7.8 mg/dl (8.6-10.3); Creatinine Clr Calc Pharmacy 24.9 ml/min; Potassium 3.2 mmol/L (3.5-5.1)
[2023-12-07] MEDS ORDERED: INSULIN ASPART PER UNIT CHARGE SC SCH (21:00)
[2023-12-07] MEDS: metroNIDAZOLE 500 MG/100 ML BAG IV SCH (21:59)
[2023-12-07 22:32] LABS: Ferritin 261.1 ng/ml (8-388)
[2023-12-08] MEDS: INSULIN ASPART PER UNIT CHARGE SC SCH ×2 (00:13→16:36)
[2023-12-08 04:36] LABS: Basophils # (auto) 0.06 K/uL (0.00-0.20); Basophils % (auto) 0.5 %; Eosinophils # (auto) 0.18 K/uL (0.00-0.50); Eosinophils % (auto) 1.6 %; Hematocrit (blood only) 28.9 % (42.0-52.0); Hemoglobin 9.4 g/dl (14.0-18.0); Immature Granulocytes # (auto) 0.04 K/uL (0.01-0.20); Immature Granulocytes % (auto) 0.4 %; Lymphocytes # (auto) 1.27 K/uL (1.20-3.40); Lymphocytes % (auto) 11.6 %; Mean Corpuscular Hemoglobin 24.7 pg (25.0-34.0); Mean Corpuscular Hgb Conc 32.5 g/dL (32.0-36.0); Mean Corpuscular Volume 75.9 fL (80.0-100.0); Monocytes % (auto) 12.8 %; Neutrophils # (auto) 7.99 K/uL (1.40-6.50); Neutrophils % (auto) 73.1 %; Platelet Count 218 K/uL (130-400); RDW Coefficient of Variation 19.3 % (11.5-14.5); RDW Standard Deviation 52.4 fL (36.4-46.3); Red Blood Count 3.81 M/uL (4.70-6.10); White Blood Count 10.94 K/ul (4.8-10.8)
[2023-12-08 04:51] LABS: Albumin Globulin Ratio 0.9 (0.9-2); Albumin Level 2.7 gm/dl (3.4-5.0); BUN Creatinine Ratio 21.7 (10-20); Bilirubin,Total 0.7 mg/dl (0.2-1.0); Calcium 7.6 mg/dl (8.6-10.3); Creatinine Clr Calc Pharmacy 38.8 ml/min; Globulin 3.1 gm/dl (2.5-4.0); Magnesium 1.7 mg/dl (1.7-2.4); Potassium 2.9 mmol/L (3.5-5.1); Total Protein 5.8 gm/dl (6.0-8.3)
--- OUTSIDE RECORDS SUMMARY | 2023-12-08 07:11 | External Medical Summary | Summary of Care ---
Author Name Unknown Organization [facility] Address [address] [place] [address] Phone [phone] Care Team Providers Care Medical Records Field Technician Name Role Phone Ean Rodriguez MD Primary Care Provider [phone] Reason for Visit * Reason Comments Outpatient Testing Encounter Details Date Type Department Care Team (Late st Contact Info) Description 11/16/2023 8:40 AM EDT Laboratory Laboratory Scenery [facility] [address] [place] [id number] [place], Lab Scenery [address] [place] [address] Type 2 diabetes mellitus with hemoglobin A1c goal of less than 7.0% ([facility]) Allergies Active Allergy Reactions Criticality Noted Date Comments Aspirin 02/24/2011 Azithromycin 02/24/2011 Z NILA DOESN'T WORK Clarithromycin 02/24/2011 GI Erythromycin 02/24/2011 GI Fluticasone-Salmeterol Rash Low 11/05/2012 Non-pruritic Metformin 07/19/2017 Other reaction(s): GI Upset Penicillins 02/24/2011 CEPHALOSPORINS, [place] Tetracycline 02/24/2011 GI documented as of this encounter (statuses as of 11/16/2023) Medications Medication Sig Dispensed Refills Start Date End Date Status Fexofenadine HCl 180 MG Oral Tablet (Addis) Take 1 Tablet by mouth in the morning. Active Triamcinolone Acetonide 55 MCG/ACT Nasal Aerosol Administer 2 Sprays into nostril in the morning. Active Sildenafil Citrate 20 MG Oral Tablet (Revatio)Indicatio ns:Organic erectile dysfunction TAKE 2-3 TABLETS (40-60 MG TOTAL) BY MOUTH DAILY. 60 Tablet 1 07/26/2022 Active Atorvastatin Calcium 20 MG Oral Tablet (Lipitor) Take 1 Tablet by mouth in the morning. 90 Tablet 1 07/20/2023 Active Trulicity 0.75 MG/0.5ML Subcutaneous Solution Pen-injector (Dulaglutide)Indic ations:Type 2 diabetes mellitus with hemoglobin A1c goal of less than 7.0% (HCC) INJECT 0.75 MG SUBCUTANEOUSLY ONE TIME PER WEEK 6 mL 08/11/2023 Active Lisinopril-hydroCH LOROthiazide 10-12.5 MG Oral Tablet TAKE 1 TABLET BY MOUTH EVERY DAY IN THE MORNING 30 Tablet 11/15/2023 Active documented as of this encounter (statuses as of 11/16/2023) Active Problems Problem Noted Date Diagnosed Date Body mass index (BMI) of 40.0 to 44.9 in adult 0 04/03/2023 Overview: Per Obesity protocol Organic erectile dysfunction 07/26/2022 HTN, goal below 130/80 07/25/2022 Dyslipidemia 07/25/2022 Type 2 diabetes mellitus wit h hemoglobin A1c goal of less than 7.0% 07/25/2022 documented as of this encounter (statuses as of 11/16/2023) Resolved Problems Problem Noted Date Diagnosed Date Resolved Date Morbid obesity 09/05/2022 04/06/2023 Overview: Per Obesity protocol documented as of this encounter (statuses as of 11/16/2023) Social History Tobacco Use Types Packs/Day Years Used Date Smoking Tobacco: Never Smokeless Tobacco: Never Alcohol Use Standard Drinks/Week Comments Yes 0 (1 standard drink = 0.6 oz pur e alcohol) rarely Utilities Answer Date Recorded Do you have trouble paying y our heating, water, or electric bill? (Adult - for ages 18 years and over) Not on file 08/08/2023 Is your family able to pay t he heat, water, or electric bill? (Household - for ages 0-17 years) Not on file 08/08/2023 Does your family have access to good internet? (Household - for ages 0-17 years) Not on file 08/08/2023 Social Connections Answer Date Recorded How often do you feel lonely or isolated from those around you? (Adult - for ages 18 years and over) Not on file 08/08/2023 Sex and Gender Information Value Date Recorded Sex Assigned at Male 09/05/2022 9:12 AM EDT Gender Identity Male 09/05/2022 9:12 AM EDT Sexual Orientation Not on file Job Start Date Occupation Industry Not on file Not on file Not on file documented as of this encounter Plan of Treatment Upcoming Encounters Date Type Department Care Team (Late st Contact Info) Description 11/21/2023 4:20 PM EDT Office Visit Family Practice [facility] [address] [place] [address] aEn Rodriguez MD [address] [place] [id number] 03/06/2024 11:20 AM EST Office Visit Sleep Disorders Ctr [facility] [address] [place] [phone] Krys Hill DO [address] [place] [address] Pending Results Name Type Priority Associated Diagnoses Date /Time HEMOGLOBIN A1C Lab Routine Type 2 diabetes mellitus with hemoglobin A1c goal of less than 7.0% ([facility]) 11/16/2023 8:37 AM EDT Health Maintenance Due Date Last Done Comments Pneumococcal Vaccine: 65+ Years (1 of 2 - PCV) 1964 Depression Screening 1970 HIV Screening 1973 Albumin/Creatinine Ratio 1976 Diabetic Eye Exam 1976 Diabetic Foot Exam 1976 Hepatitis C Screening 1976 DTap/Tdap Vaccines (1 - Tdap) 1977 Cologuard 08/20/2003 Colonoscopy 08/20/2003 Colorectal Cancer Screening 08/20/2003 Fecal Occult Blood Test 08/20/2003 Sigmoidoscopy 08/20/2003 Zoster Vaccines (1 of 2) 2008 HbA1c 10/12/2023 04/13/2023, 01/19/2022 COVID-19 Vaccine ( season) 2023 12/23/2021, 08/03/2021, 11/25/2020, Additional history exists Influenza Vaccine (FLU shot) (#1) 2023 11/11/2022, 11/24/2021 GFR 04/13/2024 04/13/2023, 12/23, 10/13/2021 Lipid Panel 04/13/2028 04/13/2023, 01/19/2022 HPV (Gardasil) Vaccine Aged Out No lo nger eligible based on patient's age to complete this topic Hepatitis B Vaccine Aged Out No longe r eligible based on patient's age to complete this topic MENINGOCOCCAL (MENACTRA/MENVEO) Aged Out No longer eligible based on patient's age to complete this topic documented as of this encounter Medical Devices Not on filedocumented as of this encounter Visit Diagnoses Diagnosis Type 2 diabetes mellitus with hemoglobin A1c goal of less than 7.0% (HCC) documented in this encounter Care Teams Medical Records Field Technician Relationship Specialty Start Date End Date Ean Rodriguez MD [address] [place] [address] PCP - General Family Medicine 09/06/22 documented as of this encounter
--- OUTSIDE RECORDS SUMMARY | 2023-12-08 07:11 | External Medical Summary | Summary of Care ---
Author Name Unknown Organization [facility] Address [address] [place] [address] Phone [phone] Care Team Providers Care Tube Winder Hand Name Role Phone Ean Rodriguez MD Primary Care Provider [phone] Reason for Visit * Reason Onset Date Comments Referral 11/22/2023 Encounter Details Date Type Department Care Team (Late st Contact Info) Description 11/22/2023 Telephone Family Practice [facility] [address] [facility] [place] [phone] Ean Rodriguez MD [address] [facility] [place] [id number] Referral Allergies Active Allergy Reactions Criticality Noted Date Comments Aspirin 02/24/2011 Azithromycin 02/24/2011 Z NILA DOESN'T WORK Clarithromycin 02/24/2011 GI Erythromycin 02/24/2011 GI Fluticasone-Salmeterol Rash Low 11/05/2012 Non-pruritic Metformin 07/19/2017 Other reaction(s): GI Upset Penicillins 02/24/2011 CEPHALOSPORINS, [place] Tetracycline 02/24/2011 GI documented as of this encounter (statuses as of 11/23/2023) Medications Medication Sig Dispensed Refills Start Date [...] the morning. 90 Tablet 1 07/20/2023 Active Lisinopril-hydroCH LOROthiazide 10-12.5 MG Oral Tablet TAKE 1 TABLET BY MOUTH EVERY DAY IN THE MORNING 30 Tablet 11/15/2023 Active Omeprazole 40 MG Oral Capsule Delayed Release (PriLOSEC)Indicati ons:Gastroesophage al reflux disease without esophagitis Take 1 Capsule by mouth in the morning. 1 hour before the first meal of the day. 90 Capsule 3 11/21/2023 Active Trulicity 0.75 MG/0.5ML Subcutaneous Solution Pen-injector (Dulaglutide)Indic ations:Type 2 diabetes mellitus with hemoglobin A1c goal of less than 7.0% ([facility]) INJECT 0.75 MG SUBCUTANEOUSLY ONE TIME PER WEEK 6 mL 3 11/21/2023 Active documented as of this encounter (statuses as of 11/23/2023) Active Problems Problem Noted Date Diagnosed Date Obstructive sleep apnea 11/21/2023 Gastroesophageal reflux disease without esophagi tis 11/21/2023 Morbid obesity 09/05/2022 Overview: Per Obesity protocol Organic erectile dysfunction 07/26/2022 HTN, goal below 130/80 07/25/2022 Dyslipidemia 07/25/2022 Type 2 diabetes mellitus wit h hemoglobin A1c goal of less than 7.0% 07/25/2022 documented as of this encounter (statuses as of 11/23/2023) Resolved Problems Problem Noted Date Diagnosed Date Resolved Date Body mass index (BMI) of 40. 0 to 44.9 in adult 04/03/2023 11/21/2023 Overview: Per Obesity protocol documented as of this encounter (statuses as of 11/23/2023) Immunizations Name Administration Dates Next Due Seasonal Influenza, High Dos e, Trivalent, PF, IM (Fluzone HD) 11/21/2023 documented as of this encounter Social History Tobacco Use Types Packs/Day Years [...] on file documented as of this encounter Miscellaneous Notes * Telephone Encounter - Julissa Blanco OSA - 11/23/2023 2:31 PM EDT Lm RANDALL Nolasco 11/23/2023 2:31 PM * Telephone Encounter - Miriam Rider OSA - 11/22/2023 7:31 AM EDT Please call patient to schedule colonoscopy thank you documented in this encounter Plan of Treatment Upcoming Encounters Date Type Department Care Team (Late st Contact Info) Description 03/06/2024 11:20 AM EST Office Visit Sleep Disorders Ctr [facility] [address] [place] [phone] Krys Hill DO [address] [place] [address] Health Maintenance Due Date Last Done Comments [...] 08/20/2003 Zoster Vaccines (1 of 2) 2008 COVID-19 Vaccine ( season) 2023 12/23/2021, 08/03/2021, 11/25/2020, Additional history exists GFR 04/13/2024 04/13/2023, 12/23, 10/13/2021, Additional history exists HbA1c 05/15/2024 11/16/2023, 03/24, 01/19/2022 Lipid Panel 04/13/2028 04/13/2023, 01/19/2022 Influenza Vaccine (FLU shot) Completed 02/2023, 11/11/2022, 11/24/2021 HPV (Gardasil) Vaccine Aged Out No lo nger eligible based on patient's age to complete this topic Hepatitis B Vaccine Aged Out No longe r eligible based on patient's age to complete this topic MENINGOCOCCAL (MENACTRA/MENVEO) Aged Out No longer eligible based on patient's age to complete this topic documented as of this encounter Medical Devices Not on filedocumented as of this encounter Care Teams Tube Winder Hand Relationship Specialty Start Date End Date Ean Rodriguez MD [address] [place] [address] PCP - General Family Medicine 09/06/22 documented as of this encounter
--- OUTSIDE RECORDS SUMMARY | 2023-12-08 07:11 | External Medical Summary | Summary of Care ---
Author Name Unknown Organization [facility] Address [address] [place] [address] Phone [phone] Care Team Providers Care Biology Department Chair Name Role Phone Ean Rodriguez MD Primary Care Provider [phone] Reason for Referral * Ancillary Services (Within 30 days (routine)) - Authorized Specialty Diagnoses / Procedures Referred By Allison sánchez Referred To Contact Gastroenterology Diagnoses Screening for colorectal cancer Ean Rodriguez MD [address] [place] [address] Referral ID Status Reason Start Date Expiration Date Visits Requested Visits Authorized [id number] Authorized Ancillary Services Required 11/21/2023 999 999 Question Answer Referral Priority Within 30 days (routine) Where should this appointment be scheduled? [facility] Comments ALERT: Do not order for pediatric patients (18 years or younger). Cancel off screen and order PEDS GASTROENTEROLOGY CONSULT (Type: 1 visit only-Evaluate and Treat) The following Pt. Instructions are available: - Gastro Colonoscopy Prep Instructions [[id number]] - Gastro Colonoscopy Prep Instructions (Tunisian Version) [[id number]] Go to the Pt. Instructions section within the Visit Navigator to access. Colonoscopy ASGE Guidelines: Average risk screening (begin at age 50, 10 year intervals) ADDITIONAL INFORMATION 1. Is the patient on Coumadin? No 2. Is the patient on Pradaxa? No Reason for Visit * Reason Onset Date Comments Medication Administration 11/21/2023 Flu an d/or Pneumo Inj Physical-Exam Encounter Details Date Type Department Care Team ([facility] Contact Info) Description 11/21/2023 4:20 PM EDT Office Visit Family Practice [facility] [address] [place] [address] Ean Rodriguez MD [address] [place] [address] Type 2 diabetes mellitus with hemoglobin A1c goal of less than 7.0% ([facility])*; Dyslipidemia; Obstructive sleep apnea; HTN, goal below 130/80; Morbid obesity (HCC); Need for prophylactic vaccination and inoculation against influenza; Organic erectile dysfunction; Screening for colorectal cancer; Gastroesophageal reflux disease without esophagitis Allergies Active Allergy Reactions Criticality Noted Date Comments Aspirin 02/24/2011 Azithromycin 02/24/2011 Z NILA DOESN'T WORK Clarithromycin 02/24/2011 GI Erythromycin 02/24/2011 GI Fluticasone-Salmeterol Rash Low 11/05/2012 Non-pruritic Metformin 07/19/2017 Other reaction(s): GI Upset Penicillins 02/24/2011 CEPHALOSPORINS, [place] Tetracycline 02/24/2011 GI documented as of this encounter (statuses as of 11/21/2023) Medications Medication Sig Dispensed Refills Start Date End Date Status Fexofenadine HCl 180 MG Oral Tablet (Addis) Take 1 Tablet by mouth in the morning. Active Triamcinolone Acetonide 55 MCG/ACT Nasal Aerosol Administer 2 Sprays into nostril in the morning. Active Sildenafil Citrate 20 MG Oral Tablet (Revatio)Indicati ons:Organic erectile dysfunction TAKE 2-3 TABLETS (40-60 MG TOTAL) BY MOUTH DAILY. 60 Tablet 1 07/26/2022 Active Atorvastatin Calcium 20 MG Oral Tablet (Lipitor) Take 1 Tablet by mouth in the morning. 90 Tablet 1 07/20/2023 Active Lisinopril-hydroC HLOROthiazide 10-12.5 MG Oral Tablet TAKE 1 TABLET BY MOUTH EVERY DAY IN THE MORNING 30 Tablet 11/15/2023 Active Omeprazole 40 MG Oral Capsule Delayed Release (PriLOSEC)Indicat ions:Gastroesopha geal reflux disease without esophagitis Take 1 Capsule by mouth in the morning. 1 hour before the first meal of the day. 90 Capsule 3 11/21/2023 Active Trulicity 0.75 MG/0.5ML Subcutaneous Solution Pen-injector (Dulaglutide)Chely cations:Type 2 diabetes mellitus with hemoglobin A1c goal of less than 7.0% (HCC) INJECT 0.75 MG SUBCUTANEOUSLY ONE TIME PER WEEK 6 mL 3 11/21/2023 Active Trulicity 0.75 MG/0.5ML Subcutaneous Solution Pen-injector (Dulaglutide)Chely cations:Type 2 diabetes mellitus with hemoglobin A1c goal of less than 7.0% (HCC) INJECT 0.75 MG SUBCUTANEOUSLY ONE TIME PER WEEK 6 mL 08/11/2023 11/21/19 24 Discontinu ed(Refill) Trulicity 0.75 MG/0.5ML Subcutaneous Solution Pen-injector (Dulaglutide)Chely cations:Type 2 diabetes mellitus with hemoglobin A1c goal of less than 7.0% (HCC) INJECT 0.75 MG SUBCUTANEOUSLY ONE TIME PER WEEK 6 mL 3 11/21/2023 11/21/19 24 Discontinu ed(Refill) documented as of this encounter (statuses as of 11/21/2023) Active Problems Problem Noted Date Diagnosed Date Obstructive sleep apnea 11/21/2023 Gastroesophageal reflux disease without esophagi tis 11/21/2023 Morbid obesity 09/05/2022 Overview: Per Obesity protocol Organic erectile dysfunction 07/26/2022 HTN, goal below 130/80 07/25/2022 Dyslipidemia 07/25/2022 Type 2 diabetes mellitus wit h hemoglobin A1c goal of less than 7.0% 07/25/2022 documented as of this encounter (statuses as of 11/21/2023) Resolved Problems Problem Noted Date Diagnosed Date Resolved Date Body mass index (BMI) of 40. 0 to 44.9 in adult 04/03/2023 11/21/2023 Overview: Per Obesity protocol documented as of this encounter (statuses as of 11/21/2023) Immunizations Name Administration Dates Next Due Seasonal [...] on file documented as of this encounter Last Filed Vital Signs Vital Sign Reading Time Taken Comments Blood Pressure 112/70 11/21/2023 4:33 PM EDT Pulse 76 11/21/2023 4:33 PM EDT Temperature 36.6 C (97.8 F) 11/21/2023 4:33 PM ED T Respiratory Rate 18 11/21/2023 4:33 PM EDT Oxygen Saturation - - Inhaled Oxygen Concentration - - Weight 142.9 kg (315 lb) 11/21/2023 4:33 PM EDT Height 188 cm (6' 2") 11/21/2023 4:33 PM EDT Body Mass Index 40.44 11/21/2023 4:33 PM EDT documented in this encounter Progress Notes * Ean Rodriguez MD - 11/21/2023 5:37 PM EDT SUBJECTIVE: Gui Diaz is a 63 year old male. Chief Complaint Patient presents with Medication Administration Flu and/or Pneumo Inj Physical-Exam HPI: Routine visit. Has lost about 30 lbs on Trulicity. Has been seeing ortho for knee/back issues. A1c went up a bit to 7.9% but has had steroids recently. Having issues with GERD of late as well. Otherwise doing quite well overall. Patient Active Problem List Diagnosis HTN, goal below 130/80 Dyslipidemia Type 2 diabetes mellitus with hemoglobin A1c goal of less than 7.0% (HCC) Organic erectile dysfunction Morbid obesity (HCC) Obstructive sleep apnea Current Outpatient Medications Medication Sig Dispense Refill Fexofenadine HCl 180 MG Oral Tablet (Addis) Take 1 Tablet by mouth in the morning. Triamcinolone Acetonide 55 MCG/ACT Nasal Aerosol Administer 2 Sprays into nostril in the morning. Sildenafil Citrate 20 MG Oral Tablet (Revatio) TAKE 2-3 TABLETS (40-60 MG TOTAL) BY MOUTH DAILY. 60Tablet 1 Atorvastatin Calcium 20 MG Oral Tablet (Lipitor) Take 1 Tablet by mouth in the morning. 90 Tablet 1 Lisinopril-hydroCHLOROthiazide 10-12.5 MG Oral Tablet TAKE 1 TABLET BY MOUTH EVERY DAY IN THE MORNING 30 Tablet 0 Omeprazole 40 MG Oral Capsule Delayed Release (PriLOSEC) Take 1 Capsule by mouth in the morning. 1 hour before the first meal of the day. 90 Capsule 3 Trulicity 0.75 MG/0.5ML Subcutaneous Solution Pen-injector (Dulaglutide) INJECT 0.75 MG SUBCUTANEOUSLY ONE TIME PER WEEK 6 mL 3 No current facility-administered medications for this visit. Allergy: Review of patient's allergies indicates: Allergen Reactions Aspirin Azithromycin Z NILA DOESN'T WORK Clarithromycin GI Erythromycin GI Metformin Other reaction(s): GI Upset Penicillins CEPHALOSPORINS, OK Tetracycline GI Fluticasone-Salmeterol Rash Non-pruritic OBJECTIVE: BP 112/70 | Pulse 76 | Temp 36.6 C (97.8 F) (Tympanic) | Resp 18 | Ht 1.88 m (6' 2") | Wt (!) 142.9 kg (315 lb) | BMI 40.44 kg/m | BSA 2.73 m General: alert, no distress, and obese Head: Normocephalic, No masses, lesions, tenderness or abnormalities Neck: supple, no adenopathy, no bruits, thyroid normal size, non-tender, without nodularity Lungs: chest symmetric with normal AP diameter, no chest deformities noted, no chest wall tenderness, lungs clear to auscultation Heart: regular rate & rhythm, no murmur, and no gallops Extremities: less than 2 second capillary refill, no joint deformities, effusion, or inflammation Neuro Exam: alert & oriented x 3 with fluent speech, no focal motor/sensory deficits, gait normal, reflexes normal and symmetric Skin: skin color, texture, turgor are normal, no rashes or significant lesions ASSESSMENT AND PLAN: (E11.9) Type 2 diabetes mellitus with hemoglobin A1c goal of less than 7.0% (HCC) (primary encounter diagnosis) Plan: Trulicity 0.75 MG/0.5ML Subcutaneous Solution Pen-injector (Dulaglutide), DISCONTINUED: Trulicity 0.75 MG/0.5ML Subcutaneous Solution Pen-injector (Dulaglutide) (E78.5) Dyslipidemia Plan: stable (G47.33) Obstructive sleep apnea Plan: stable (I10) HTN, goal below 130/80 Plan: stable (E66.01) Morbid obesity (HCC) Plan: continue diet/trulicity/exercise (Z23) Need for prophylactic vaccination and inoculation against influenza Plan: INFLUENZA VAC., TRIVALENT, HD, PF, 65 AND ABOVE, 0.5 ML IM (FLUZONE HD) (N52.9) Organic erectile dysfunction Plan: prn viagra (Z12.11, Z12.12) Screening for colorectal cancer Plan: COLONOSCOPY, GI REFERRAL OP (K21.9) Gastroesophageal reflux disease without esophagitis Plan: Omeprazole 40 MG Oral Capsule Delayed Release (PriLOSEC) Follow up as needed. No other complaints were offered at this time. Ean Rodriguez MD * Mira Merritt LPN - 11/21/2023 4:31 PM EDT PRE - ADMINISTRATION DOCUMENTATION Are you experiencing any cold symptoms or fever? No Have you had Guillain-[place] Syndrome (an illness that causes paralysis) within the last 6 weeks? No Have you had the flu shot in the past? YES Have you ever had a reaction to the flu shot? No Mira Merritt LPN, 11/21/2023 4:31 PM Immunization Administration Documentation Time Out Procedure Performed: Yes Patient Identified (Ask Name/Date of ): Yes Does the patient have a fever greater than 101 degrees today? No Patient allergic to latex? No VFC Stock: No Immunization(s) verified: Yes, Immunization Name: Flu, VIS Sheet(s) given: Yes Verified Side and Site: Yes Verified Shot(s) with Parent(s)/Patient: Yes documented in this encounter Nursing Notes * Mira Merritt LPN - 11/21/2023 4:32 PM EDT The patient has been properly identified by confirmation of name and date of . Chief Complaint Patient presents with Medication Administration Flu and/or Pneumo Inj Physical-Exam documented in this encounter Plan of Treatment Upcoming Encounters Date Type Department Care Team (Late st Contact Info) Description 03/06/2024 11:20 AM EST Office Visit Sleep Disorders Ctr [facility] [address] [place] [phone] Krys Hill DO [address] [place] [address] Scheduled Referrals Name Type Priority Associated Diagnoses Orde r Schedule COLONOSCOPY, GI REFERRAL OP Referral Within 30 days (routine) Screening for colorectal cancer Ordered: 11/21/2023 Health Maintenance Due Date Last Done Comments [...] hemoglobin A1c goal of less than 7.0% (HCC)- Primary Dyslipidemia Other and unspecified hyperlipidemia Obstructive sleep apnea Obstructive sleep apnea (adult) (pediatric) HTN, goal below 130/80 Unspecified essential hypertension Morbid obesity (HCC) Morbid obesity Need for prophylactic vaccination and inoculation against influenza Organic erectile dysfunction Impotence of organic origin Screening for colorectal cancer Special screening for malignant neoplasms, colon Gastroesophageal reflux disease without esophagitis Esophageal reflux documented in this encounter Care Teams Biology Department Chair Relationship Specialty Start Date End Date Ean Rodriguez MD [address] [place] [address] PCP - General Family Medicine 09/06/22 documented as of this encounter
--- OUTSIDE RECORDS SUMMARY | 2023-12-08 07:11 | External Medical Summary | Continuity of Care Document ---
Author Name Unknown Organization [facility] [address] [place] [id number] Address [address] [place] [id number] Encounter [facility] [id number] Date(s): 11/14/23 - 11/14/23 [facility] [address] [facility] [address] [facility] Medicine [address] [place] [id number] Encounter Diagnosis Sacroiliac joint pain(Discharge Diagnosis) - 11/13/23 Discharge Disposition: Home or Self Care Attending Physician: MD Jg, Asad Segundo Referring Physician: MD Denise, Misael Duarte Allergies, Adverse Reactions, Alerts Substance Criticality Severity Reaction Reaction Severity Status ibuprofen GI Active tetracycline 1 Unknown Activ e erythromycin 2 Unknown Activ e azithromycin 3 Unknown Activ e clarithromycin 4 Unknown Act yair penicillin hives Active aspirin Unknown Active Non-Asprin GI Active metFORMIN 5 Unknown Active fluticasone-salmeterol 6 Rash Active 1Outside Source Comment: GI 2Outside Source Comment: GI 3Outside Source Comment: Marlin DOTSON DOESN%27T WORK 4Outside Source Comment: GI 5Outside Source Comment: Other reaction(s): GI Upset 6Outside Source Comment: Non-pruritic Medications atorvastatin 20 mg oral tablet Start: 10/27/23 10:12:00 AM EDT Start Date: 10/27/23 Status: Ordered hydrochlorothiazide-lisinopril 12.5 mg-10 mg oral tablet Start: 10/27/23 10:12:00 AM EDT Start Date: 10/27/23 Status: Ordered sildenafil 20 mg oral tablet Start: 11/13/23 10:37:00 AM EDT, 60 each, 0 Refill(s), TAKE 2-3 TABLETS BY MOUTH DAILY. Start Date: 11/13/23 Status: Ordered Trulicity Pen 0.75 mg/0.5 mL subcutaneous solution Start: 10/27/23 10:12:00 AM EDT Start Date: 10/27/23 Status: Ordered Mental Status 11/14/23 Barriers to Learning one year None evide nt Mandatory Health Literacy Documentation Yes Health Literacy Communication Barriers N ever Primary Language Qatari Problem List Condition Confirmation Course Effective Dates Status Health St atus Informant Degenerative arthritis of knee, bilateral Confirmed Active Sacroiliac joint pain Confirmed Active Diagnosis Diagnosis Type Effective Dates Health Status Clinical Service Informant Sacroiliac joint pain Discharge Diagnosis 11/13/23 Vital Signs Most recent to oldest [Reference Range]: 1 Heart Rate 102 bpm (11/14/23 9:22 AM) Blood Pressure 124/70mmHg (11/14/23 9:22 AM) Social History Social History Type Response Smoking Status Never smoked cigaret su Sex Male Sex Representation Male (finding) Ortho Outpt Note * MD Jg, Asad Segundo: PERFORM Event Display: Ortho Outpt Note Authored Date: [id number] Name:KISHAN MANN Patient Number:[id number] :1960 Date of Service:11/14/2023 Preoperative diagnosis: Bilateral sacroiliitis Postoperative diagnosis: Same Procedure: Bilateral sacroiliac joint injections under fluoroscopic guidance Indications: Patient is [id number] malewho has bilateral sacroiliitis he presents today for injections to provide him with relief as he is failed conservative treatment. Physical examination patient is without any focal motor or sensory deficits and negative seated straight leg raises, bilateral tenderness of the sacroiliac joints. Consent: Verbal consent was obtained from the patient. Prior to the procedure a timeout was done for safety to identify patient's name date of and approach. Procedure: Patient was maintained in a prone position backside was cleansed with orange ChloraPrep,fluoroscope was used to identify the left sacroiliac joint . They then underwent anesthetization of the overlying skin with 3 mL of lidocaine 1% with a 25-gauge 1/2 inch needle. A 3-1/2 inch 25-gauge spinal needle was then directed under fluoroscopic guidance into the joint and they then underwent injection after negative aspiration of <0.25ml of Omnipaque 300 to confirm intraarticular uptake then injection after negative aspiration of 40 mg Depo-Medrol and 1/2 mL of 0.25% bupivacaine. Fluoroscope was then used to identify the right sacroiliac joint . The overlying skin was anesthetized with 3 mL of lidocaine 1% with a 25-gauge 1/2 inch needle. A 3-1/2 inch 25-gauge spinal needlewas then directed under fluoroscopic guidance into the joint and they underwent injection after negative aspiration of <0.25ml of Omnipaque 300 to confirm intraarticular uptake then injection 40 mg Depo-Medrol and 1/2 mL of 0.25% bupivacaine. Injection was well-tolerated images from the procedure were saved and downloaded to PACS. Disposition: Patient will be discharged home once discards criteria have been met. Electronic Signature on File CC: Misael Walker MD [address] [facility] [address] [place] [id number] Electronically Reviewed/Signed by: Asad Gregorio MD Author Signature Dt/Tm:11/14/2023 09:59 AM [facility] .Outpt Proc * ANDRIY Limon, Elba Lozano: PERFORM Event Display: .Outpt Proc Authored Date: [id number] OUTPATIENT PROCEDURE Name: KISHAN MANN Patient Number: [id number] : 1960 Date of Service: 11/14/2023 OUTPATIENT PROCEDURE NOTE Is patient no Procedure performedBilateralSacroilliac Join Injection [id number] byDrLuciano Gregorio MD Resuscitation equipment checkedyes Anticoagulants stoppedN/A Patient has a driveryes xray guidance usedyesConscious sedationnoTime out completedyes consent signedyes Allergies checkedyesmetFORMIN; Non-Asprin; fluticasone-salmeterol; aspirin; penicillin; clarithromycin; azithromycin; erythromycin; tetracycline; ibuprofen Diabeticyes PositionPronePre procedure pain level _4__/10 Skin PrepchlorhexadineSterile drapes usedyes Skin Local Anesthetic: Needle ___25__ga ___1.5___in Lidocaile ___1__%___5__ml Other HR: 102 SpO2: 98% BP: 124/70 Block Needle _25_GA_3.5_InchesType - Epidural/spinal needle x2 Procedure medication used Cortical Steroids _40__mg [id number] Anesthetic __0.25___% ___3__ml Bupivicaine TimeDrug/Event/RemarkBPHRSPO2 Comments 0949 - 0.25ml Omnipaque L SI joint 0953 - 0.25ml Omnipaque R SI joint 0954 - Procedure complete 107/68 93 99% Status:Pain on discharge __2__/10ComplicationsNo Neurologically stableYes DispositionDischarged Home with aftercare instructions given Follow up prn Electronic Signature on File Electronically Reviewed/Signed by: Elba Limon Author Signature Dt/Tm:11/14/2023 09:58 AM Electronically Reviewed/Signed by: Asad Gregorio MD Cosigner Signature Dt/Tm: 11/14/2023 11:39 AM [facility]
--- OUTSIDE RECORDS SUMMARY | 2023-12-08 07:11 | External Medical Summary | Summary of Care ---
Author Name Unknown Organization [facility] Address [address] [place] [address] Phone [phone] Care Team Providers Care Esthetician Facialist Name Role Phone Milind Conklin MD Primary Care Provider [phone] Reason for Visit * Reason Comments eRx-Medication Refill Encounter Details Date Type Department Care Team (Late st Contact Info) Description 11/14/2023 Refill Family Practice [facility] [address] [facility] [place] [address] Milind Conklin MD [address] [facility] [place] [address] Allergies Active Allergy Reactions Criticality Noted Date Comments Aspirin 02/24/2011 Azithromycin 02/24/2011 Z NILA DOESN'T WORK Clarithromycin 02/24/2011 GI Erythromycin 02/24/2011 GI Fluticasone-Salmeterol Rash Low 11/05/2012 Non-pruritic Metformin 07/19/2017 Other reaction(s): GI Upset Penicillins 02/24/2011 CEPHALOSPORINS, [place] Tetracycline 02/24/2011 GI documented as of this encounter (statuses as of 11/15/2023) Medications Medication Sig Dispensed Refills Start Date End Date Status Fexofenadine HCl 180 MG Oral Tablet (Addis) Take 1 Tablet by mouth in the morning. Active Triamcinolone Acetonide 55 MCG/ACT Nasal Aerosol Administer 2 Sprays into nostril in the morning. Active Sildenafil Citrate 20 MG Oral Tablet (Revatio)Indicati ons:Organic erectile dysfunction TAKE 2-3 TABLETS (40-60 MG TOTAL) BY MOUTH DAILY. 60 Tablet 1 3 Active Atorvastatin Calcium 20 MG Oral Tablet (Lipitor) Take 1 Tablet by mouth in the morning. 90 Tablet 1 4 Active Trulicity 0.75 MG/0.5ML Subcutaneous Solution Pen-injector (Dulaglutide)Chely cations:Type 2 diabetes mellitus with hemoglobin A1c goal of less than 7.0% (HCC) INJECT 0.75 MG SUBCUTANEOUSLY ONE TIME PER WEEK 6 mL 4 Active Lisinopril-hydroC HLOROthiazide 10-12.5 MG Oral Tablet TAKE 1 TABLET BY MOUTH EVERY DAY IN THE MORNING 30 Tablet 4 Active Lisinopril-hydroC HLOROthiazide 10-12.5 MG Oral Tablet TAKE 1 TABLET BY MOUTH EVERY DAY IN THE MORNING 90 Tablet 4 11/15/19 24 Discontinued documented as of this encounter (statuses as of 11/15/2023) Active Problems Problem Noted Date Diagnosed Date Body mass index (BMI) of 40.0 to 44.9 in adult 0 04/03/2023 Overview: Per Obesity protocol Organic erectile dysfunction 07/26/2022 HTN, goal below 130/80 07/25/2022 Dyslipidemia 07/25/2022 Type 2 diabetes mellitus wit h hemoglobin A1c goal of less than 7.0% 07/25/2022 documented as of this encounter (statuses as of 11/15/2023) Resolved Problems Problem Noted Date Diagnosed Date Resolved Date Morbid obesity 09/05/2022 04/06/2023 Overview: Per Obesity protocol documented as of this encounter (statuses as of 11/15/2023) Social History Tobacco Use Types Packs/Day Years [...] encounter Miscellaneous Notes * Telephone Encounter - Meka Canchola RPh - 11/15/2023 9:32 AM EDTSigned Prescriptions: Disp Refills Lisinopril-hydroCHLOROthiazide 10-12.5 MG *30 Tab*0 Sig: TAKE 1 TABLET BY MOUTH EVERY DAY IN THE MORNINGAuthorizing Provider: MILIND CONKLIN User: EMKA CANCHOLA * Telephone Encounter - Meka Canchola RPh - 11/15/2023 9:31 AM EDT 1 refill approved as pt will be due for office visit within 3 months. Thank you, Meka Canchola, PharmD Clinical Pharmacist [facility] [phone] 11/15/2023, 9:32 AM documented in this encounter Plan of Treatment Upcoming Encounters Date Type Department Care Team (Late st Contact Info) Description 11/16/2023 8:40 AM EDT Laboratory [facility] [address] [place], [place] [address] [place], Lab Scen[address] [place] [address] 11/21/2023 4:20 PM EDT Office Visit Family Practice [facility] [address] [place] [address] Milind Conklin MD [address] [place] [address] 03/06/2024 11:20 AM EST Office Visit Sleep Disorders Ctr [facility] [address] [place] [phone] Krys Hill DO [address] [place] [address] Health Maintenance Due Date Last Done Comments [...] filedocumented as of this encounter Care Teams Esthetician Facialist Relationship Specialty Start Date End Date Milind Conklin MD [address] [place] [address] PCP - General Family Medicine 09/06/22 documented as of this encounter
--- OUTSIDE RECORDS SUMMARY | 2023-12-08 07:11 | External Medical Summary | Summary of Care ---
Author Name Unknown Organization [facility] Address [address] [place] [address] Phone [phone] Care Team Providers Care Supervisor Instrument Maintenance Name Role Phone Ean Rodriguez MD Primary Care Provider [phone] Reason for Visit * Reason Comments Acute Pt reports Monday ni ght diarrhea for approx 24 hrs, since has had abdominal pain and occasional cramping, some nausea, loss of appetite. No known fever. Encounter Details Date Type Department Care Team (Late st Contact Info) Description 11/30/2023 2:00 PM EDT Office Visit Family Practice [facility] [address] [facility] [place] [address] Laxmi Vazquez MD 132 [facility] [place] [address] Nausea and vomiting, unspecified vomiting type*; Diarrhea, unspecified type; Gastroesophageal reflux disease without esophagitis; Type 2 diabetes mellitus with hemoglobin A1c goal of less than 7.0% ([facility]) Allergies Active Allergy Reactions Criticality Noted Date Comments Aspirin 02/24/2011 Azithromycin 02/24/2011 Z NILA DOESN'T WORK Clarithromycin 02/24/2011 GI Erythromycin 02/24/2011 GI Fluticasone-Salmeterol Rash Low 11/05/2012 Non-pruritic Metformin 07/19/2017 Other reaction(s): GI Upset Penicillins 02/24/2011 CEPHALOSPORINS, [place] Tetracycline 02/24/2011 GI documented as of this encounter (statuses as of 11/30/2023) Medications Medication Sig Dispensed Refills Start Date End Date Status Fexofenadine HCl 180 MG Oral Tablet (Addis) Take 1 Tablet by mouth in the morning. Active Triamcinolone Acetonide 55 MCG/ACT Nasal Aerosol Administer 2 Sprays into nostril in the morning. Active Sildenafil Citrate 20 MG Oral Tablet (Revatio)Indication s:Organic erectile dysfunction TAKE 2-3 TABLETS (40-60 MG TOTAL) BY MOUTH DAILY. 60 Tablet 1 07/26/2022 Active Atorvastatin Calcium 20 MG Oral Tablet (Lipitor) Take 1 Tablet by mouth in the morning. 90 Tablet 1 07/20/2023 Active Lisinopril-hydroCHL OROthiazide 10-12.5 MG Oral Tablet TAKE 1 TABLET BY MOUTH EVERY DAY IN THE MORNING 30 Tablet 11/15/2023 Active Omeprazole 40 MG Oral Capsule Delayed Release (PriLOSEC)Indicatio ns:Gastroesophageal reflux disease without esophagitis Take 1 Capsule by mouth in the morning. 1 hour before the first meal of the day. 90 Capsule 3 11/21/2023 Active Trulicity 0.75 MG/0.5ML Subcutaneous Solution Pen-injector (Dulaglutide)Indica tions:Type 2 diabetes mellitus with hemoglobin A1c goal of less than 7.0% ([facility]) INJECT 0.75 MG SUBCUTANEOUSLY ONE TIME PER WEEK 6 mL 3 11/21/2023 Active Ondansetron 4 MG Oral Tablet Disintegrating (Zofran)Indications :Nausea and vomiting, unspecified vomiting type Place 1 Tablet on tongue every 8 hours as needed for Nausea. dissolve on tongue. 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 0 to 44.9 in adult 04/03/2023 11/21/2023 Overview: Per Obesity protocol documented as of this encounter (statuses as of 11/30/2023) Immunizations Name Administration Dates Next Due Seasonal Influenza, High Dos e, Trivalent, PF, IM (Fluzone HD) 11/21/2023 documented as of this encounter Social History Tobacco Use Types Packs/Day Years Used Date Smoking Tobacco: Never Smokeless Tobacco: Never Tobacco Cessation:Counseling Given: Not Answered Alcohol Use Standard Drinks/Week Comments Yes 0 [...] Sign Reading Time Taken Comments Blood Pressure 122/76 11/30/2023 2:10 PM EDT Pulse 99 11/30/2023 2:10 PM EDT Temperature 36.8 C (98.2 F) 11/30/2023 2:10 PM ED T Respiratory Rate - - Oxygen Saturation 98% 11/30/2023 2:10 PM EDT Inhaled Oxygen Concentration - - Weight 143.3 kg (316 lb) 11/30/2023 2:10 PM EDT Height - - Body Mass Index 40.57 11/21/2023 4:33 PM EDT documented in this encounter Patient Instructions * Patient Instructions* Laxmi Vazquez MD - 11/30/2023 2:46 PM EDT Next Steps: -- focus on consistent eating, small amounts, bland food. -- stay well hydrated -- stay as active as reasonable -- restart omeprazole to help reflux and possibly nausea -- use Zofran if needed for nausea -- should improve in next 48-72hrs -- if high fever, vomiting, severe belly pain, or other severe symptom please go to ED --If you are having worsening symptoms, please call to speak with a nurse. documented in this encounter Progress Notes * Laxmi Vazquez MD - 11/30/2023 2:19 PM EDT Images from the original note were not included. Subjective Gui Diaz is a 63 year old male that presents for Acute (Pt reports Monday night diarrhea for approx 24 hrs, since has had abdominal pain and occasional cramping, some nausea, loss of appetite. No known fever. ) History of Present Illness The patient, with a past medical history of diabetes managed with Trulicity, presents with abdominal cramping and nausea. The symptoms began following an episode of non-bloody diarrhea that resolved within 24 hours. The patient describes the cramps as periodic and associated with dry heaving. The patient has experienced similar cramps in the past, occurring sporadically after meals, but notes that this is the first time the cramps have been bothersome and persistent. Cramps occur once or twice a day, last for 30 seconds or less. The patient also reports a lack of appetite and reduced bowel movements due to decreased food intake. Is still having bowel movements and flatulence. The patient denies any fever, severe abdominal pain, dizziness or lightheadedness, chest pain or shortness of breath. The patient also reports a recent history musculoskeletal pain managed with a Medrol pack and Voltaren gel, respectively. Started omeprazole earlier this month after oral steroids caused a reflux flare. Stopped a few days ago when heartburn symptoms seemed to resolve. Social History - Denies nicotine use - Denies marijuana use - Alcohol use: very little Current medications and allergies reviewed. Past medical history and problem list reviewed. Objective Vitals: 11/30/23 1410 Temp: 36.8 C (98.2 F) Pulse: 99 SpO2: 98% BP: 122/76 BP Readings from Last 3 Encounters: 11/30/23 122/76 11/21/23 112/70 03/02/23 126/84 Wt Readings from Last 3 Encounters: 11/30/23 (!) 143.3 kg (316 lb) 11/21/23 (!) 142.9 kg (315 lb) 03/02/23 (!) 160.1 kg (353 lb) Physical Exam Vitals and nursing note reviewed. Constitutional: General: He is not in acute distress. Appearance: Normal appearance. He is not ill-appearing. HENT: Head: Normocephalic and atraumatic. Right Ear: Tympanic membrane, ear canal and external ear normal. There is no impacted cerumen. Left Ear: Tympanic membrane, ear canal and external ear normal. There is no impacted cerumen. Nose: Nose normal. Mouth/Throat: Mouth: Mucous membranes are moist. Pharynx: Oropharynx is clear. No oropharyngeal exudate. Eyes: General: No scleral icterus. Right eye: No discharge. Left eye: No discharge. Conjunctiva/sclera: Conjunctivae normal. Pupils: Pupils are equal, round, and reactive to light. Neck: Thyroid: No thyroid mass, thyromegaly or thyroid tenderness. Cardiovascular: Rate and Rhythm: Normal rate and regular rhythm. Heart sounds: No murmur heard. Comments: HR 90-100s Pulmonary: Effort: Pulmonary effort is normal. Breath sounds: Normal breath sounds. Abdominal: General: Abdomen is flat. Bowel sounds are normal. There is no distension. Palpations: Abdomen is soft. There is no mass. Tenderness: There is abdominal tenderness (mild, LLQ=RLQ). There is no guarding or rebound. Hernia: No hernia is present. Musculoskeletal: Right lower leg: No edema. Left lower leg: No edema. Lymphadenopathy: Cervical: No cervical adenopathy. Skin: General: Skin is warm and dry. Neurological: Mental Status: He is alert. Psychiatric: Mood and Affect: Mood normal. Behavior: Behavior normal. I have reviewed the following results: CMP and Hemoglobin A1C Assessment and Plan Assessment & Plan Gastroenteritis Recent episode of diarrhea, now resolved, with ongoing abdominal cramping and nausea. No alarming symptoms such as high fever, severe abdominal pain, or bloody diarrhea. -Encourage small, frequent, bland meals and hydration. -Consider probiotic to reestablish normal gut wai. -Resume Omeprazole to manage potential reflux symptoms. -Use Zofran as needed for nausea. -Contact office if symptoms worsen or persist beyond 48-72 hours. Nausea and vomiting, unspecified vomiting type (Primary) - Ondansetron 4 MG Oral Tablet Disintegrating (Zofran); Place 1 Tablet on tongue every 8 hours as needed for Nausea. dissolve on tongue. Diarrhea, unspecified type Gastroesophageal reflux disease without esophagitis Type 2 diabetes mellitus with hemoglobin A1c goal of less than 7.0% ([facility]) Wrap-Up Follow Up: Return if symptoms worsen or fail to improve. Time: I spent a total of 20-29 minutes (exact time 28 mins) on the date of service in preparation, delivery, and documentation of the care provided to Gui Diaz excluding any time spent in the performance of separately billed services. Text in this note was generated using an [employer] documentation service. I discussed the use of a device to record and summarize our discussion today. All persons present during the encounter consented to its use. documented in this encounter Nursing Notes * Andrea Russ CMA - 11/30/2023 2:09 PM EDT The patient has been properly identified by confirmation of name and date of . Chief Complaint Patient presents with Acute Pt reports Monday night diarrhea for approx 24 hrs, since has had abdominal pain and occasional cramping, some nausea, loss of appetite. No known fever. ' documented in this encounter Plan of Treatment Upcoming Encounters Date Type Department Care Team (Late st Contact Info) Description 03/06/2024 11:20 AM EST Office Visit Sleep Disorders Ctr [facility] 132 [facility] [place] [phone] [place], 132 [facility] [place] [address] Health Maintenance Due Date Last Done Comments [...] as of this encounter Visit Diagnoses Diagnosis Nausea and vomiting, unspecified vomiting type- Primary Diarrhea, unspecified type Gastroesophageal reflux disease without esophagitis Esophageal reflux Type 2 diabetes mellitus with hemoglobin A1c goal of less than 7.0% (HCC) documented in this encounter Care Teams Supervisor Instrument Maintenance Relationship Specialty Start Date End Date Ean Rodriguez MD [address] [place] [address] PCP - General Family Medicine 09/06/22 documented as of this encounter
--- OUTSIDE RECORDS SUMMARY | 2023-12-08 07:11 | External Medical Summary | Summary of Care ---
Author Name Unknown Organization [facility] Address [address] [place] [address] Phone [phone] Care Team Providers Care Tag Press Operator Name Role Phone Ean Rodriguez MD Primary Care Provider [phone] Reason for Visit * Reason Onset Date Comments Referral 11/22/2023 Encounter Details Date Type Department Care Team (Late st Contact Info) Description 11/22/2023 Telephone Family Practice [facility] [address] [facility] [place] [phone] Ean Rodriguez MD [address] [facility] [place] [address] Referral Allergies Active Allergy Reactions Criticality Noted Date Comments Aspirin 02/24/2011 Azithromycin 02/24/2011 Z NILA DOESN'T WORK Clarithromycin 02/24/2011 GI Erythromycin 02/24/2011 GI Fluticasone-Salmeterol Rash Low 11/05/2012 Non-pruritic Metformin 07/19/2017 Other reaction(s): GI Upset Penicillins 02/24/2011 CEPHALOSPORINS, [place] Tetracycline 02/24/2011 GI documented as of this encounter (statuses as of 11/22/2023) Medications Medication Sig Dispensed Refills Start Date [...] less than 7.0% ([facility]) INJECT 0.75 MG SUBCUTANEOUSLY ONE TIME PER WEEK 6 mL 3 11/21/2023 Active documented as of this encounter (statuses as of 11/22/2023) Active Problems Problem Noted Date Diagnosed Date Obstructive sleep apnea 11/21/2023 Gastroesophageal reflux disease without esophagi tis 11/21/2023 Morbid obesity 09/05/2022 Overview: Per Obesity protocol 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 0 to 44.9 in adult 04/03/2023 11/21/2023 Overview: Per Obesity protocol documented as of this encounter (statuses as of 11/22/2023) Immunizations Name Administration Dates Next Due Seasonal [...] encounter Miscellaneous Notes * Telephone Encounter - Miriam Rider OSA - 11/22/2023 7:31 AM EDT Please call patient to schedule colonoscopy thank you documented in this encounter Plan of Treatment Upcoming Encounters Date Type Department Care Team (Late st Contact Info) Description 03/06/2024 11:20 AM EST Office Visit Sleep Disorders Ctr [facility] [place] [phone] [place], [address] [place] [address] Health Maintenance Due Date Last Done Comments [...] filedocumented as of this encounter Care Teams Tag Press Operator Relationship Specialty Start Date End Date Ean Rodriguez MD [address] [place] [address] PCP - General Family Medicine 09/06/22 documented as of this encounter
--- OUTSIDE RECORDS SUMMARY | 2023-12-08 07:11 | External Medical Summary ---
Author Name Unknown Address Unknown Organization [id number]:[facility] [place] [address] [facility] [address] Laboratory Report Ordering Provider Test Date Status SUSHANT LÓPEZ 11/16/2023 08:37:10 Final Observation Date Value Abnormality Reference (Units ) Status HbA1C 11/16/2023 08:37:10 7.9 Above high normal 4. 0-5.6 (%) Final The use of HbA1c to monitor glycemic status is based on normal hemoglobin and HbA composition. This test should not be used in patients with abnormal hemoglobin that affects the half life of the red blood cell or the in vivo glycation rates. Glucose, estimated average 11/16/2023 08:37:10 180 Above high normal <126 (mg/dL) Tomasz cannon Performing Location [facility] [place] [facility] [address] [facility] [address]
--- OUTSIDE RECORDS SUMMARY | 2023-12-08 07:12 | External Medical Summary | Summary of Care ---
Author Name Unknown Organization [facility] Address [address] [place] [address] Phone [phone] Care Team Providers Care Scleroscope Tester Name Role Phone Ean Rodriguez MD Primary Care Provider [phone] Reason for Visit * Reason Onset Date Comments Medication Refill 08/10/2023 Encounter Details Date Type Department Care Team (Late st Contact Info) Description 08/10/2023 Refill Family Practice [facility] [address] [place] [address] Ean Rodriguez MD [address] [facility] [place] [address] Type 2 diabetes mellitus with hemoglobin A1c goal of less than 7.0% ([facility]) Allergies Active Allergy Reactions Criticality Noted Date Comments Aspirin 02/24/2011 Azithromycin 02/24/2011 Z NILA DOESN'T WORK Clarithromycin 02/24/2011 GI Erythromycin 02/24/2011 GI Fluticasone-Salmeterol Rash Low 11/05/2012 Non-pruritic Metformin 07/19/2017 Other reaction(s): GI Upset Penicillins 02/24/2011 CEPHALOSPORINS, [place] Tetracycline 02/24/2011 GI documented as of this encounter (statuses as of 08/11/2023) Medications Medication Sig Dispensed Refills Start Date [...] MOUTH DAILY. 60 Tablet 1 07/26/2022 Active Lisinopril-hydroCH LOROthiazide 10-12.5 MG Oral Tablet Take 1 Tablet by mouth in the morning. 90 Tablet 3 07/26/2022 Active Trulicity 0.75 MG/0.5ML Subcutaneous Solution Pen-injector (Dulaglutide)Indic ations:Type 2 diabetes mellitus with hemoglobin A1c goal of less than 7.0% (HCC) INJECT 0.75 MG SUBCUTANEOUSLY ONE TIME PER WEEK 6 mL 1 04/14/2023 Active Atorvastatin Calcium 20 MG Oral Tablet (Lipitor) Take 1 Tablet by mouth in the morning. 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 HTN, goal below 130/80 07/25/2022 Dyslipidemia 07/25/2022 Type 2 diabetes mellitus wit h hemoglobin A1c goal of less than 7.0% 07/25/2022 documented as of this encounter (statuses as of 08/11/2023) Resolved Problems Problem Noted Date Diagnosed Date Resolved Date Morbid obesity 09/05/2022 04/06/2023 Overview: Per Obesity protocol documented as of this encounter (statuses as of 08/11/2023) Social History Tobacco Use Types Packs/Day Years [...] encounter Miscellaneous Notes * Telephone Encounter - Anna Mendoza RP - 08/11/2023 6:27 AM EDT Refused Prescriptions: Disp Refills Trulicity 0.75 MG/0.5ML Subcutaneous Solut*6 mL 1 Sig: INJECT 0.75 MG SUBCUTANEOUSLY ONE TIME PER WEEKRefused By: ANNA MENDOZA for Refusal: Too soon-- documented in this encounter Plan of Treatment Upcoming Encounters Date Type Department Care Team (Late st Contact Info) Description 03/06/2024 11:20 AM EST Office Visit Sleep Disorders Ctr [facility] [address] [place] [phone] [place] DO [address] [place] [address] Health Maintenance Due Date Last Done Comments Pneumococcal Vaccine: Pediatrics (0 to 5 Years) and At-Risk Patients (6 to 64 Years) (1 of 2 - PCV) 1964 Depression Screening 1970 HIV Screening 1973 Albumin/Creatinine Ratio 1976 Diabetic Eye Exam 1976 Diabetic Foot Exam 1976 Hepatitis C Screening 1976 DTaP,Tdap,and Td Vaccines (1 - Tdap) 1977 Cologuard 08/20/2003 Colonoscopy 08/20/2003 Colorectal Cancer Screening 08/20/2003 Fecal Occult Blood Test 08/20/2003 Sigmoidoscopy 08/20/2003 Zoster Vaccines (1 of 2) 2008 COVID-19 Vaccine ( season) 2022 12/23/2021, 08/03/2021, 11/25/2020, Additional history exists HbA1c 10/12/2023 04/13/2023, 01/19/2022 GFR 04/13/2024 04/13/2023, 12/23, 10/13/2021 Lipid Panel 04/13/2028 04/13/2023, 01/19/2022 Influenza Vaccine (FLU shot) Completed 11/11/2022, 11/24/2021 GARDASIL-HPV IMMUNIZATION SERIES Aged Out No longer eligible based on patient's age to complete this topic Hepatitis B Aged Out No longer eligi ble based on patient's age to complete this topic MENINGOCOCCAL (MENACTRA/MENVEO) Aged Out No longer eligible based on patient's age to complete this topic documented as of this encounter Medical Devices Not on filedocumented as of this encounter Visit Diagnoses Diagnosis Type 2 diabetes mellitus with hemoglobin A1c goal of less than 7.0% (HCC) documented in this encounter Care Teams Scleroscope Tester Relationship Specialty Start Date End Date Ean Rodriguez MD [address] [place] [address] PCP - General Family Medicine 09/06/22 documented as of this encounter
--- OUTSIDE RECORDS SUMMARY | 2023-12-08 07:12 | External Medical Summary | Summary of Care ---
Author Name Unknown Organization [facility] Address [address] [place] [address] Phone [phone] Care Team Providers Care Used Car Lot Porter Name Role Phone Ean Rodriguez MD Primary Care Provider [phone] [phone] Reason for Visit * Reason Onset Date Comments Sleep Apnea Device 06/15/2023 Encounter Details Date Type Department Care Team (Late st Contact Info) Description 06/15/2023 Telephone Sleep Lab, [address] [phone] [place], DO [address] [place] [address] Sleep Apnea Device Allergies Active Allergy Reactions Criticality Noted Date Comments Aspirin 02/24/2011 Azithromycin 02/24/2011 Z NILA DOESN'T WORK Clarithromycin 02/24/2011 GI Erythromycin 02/24/2011 GI Fluticasone-Salmeterol Rash Low 11/05/2012 Non-pruritic Metformin 07/19/2017 Other reaction(s): GI Upset Penicillins 02/24/2011 CEPHALOSPORINS, [place] Tetracycline 02/24/2011 GI documented as of this encounter (statuses as of 06/15/2023) Medications Medication Sig Dispensed Refills Start Date End Date Status Fexofenadine HCl 180 MG Oral Tablet (Addis) Take 1 Tablet by mouth in the morning. 0 Active Triamcinolone Acetonide 55 MCG/ACT Nasal Aerosol Administer 2 Sprays into nostril in the morning. 0 Active Sildenafil Citrate 20 MG Oral Tablet (Revatio)Indicatio ns:Organic erectile dysfunction TAKE 2-3 TABLETS (40-60 MG TOTAL) BY MOUTH DAILY. 60 Tablet 1 07/26/2022 Active Lisinopril-hydroCH LOROthiazide 10-12.5 MG Oral Tablet Take 1 Tablet by mouth in the morning. 90 Tablet 3 07/26/2022 Active Atorvastatin Calcium 20 MG Oral Tablet (Lipitor) Take 1 Tablet by mouth in the morning. 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 HTN, goal below 130/80 07/25/2022 Dyslipidemia 07/25/2022 Type 2 diabetes mellitus wit h hemoglobin A1c goal of less than 7.0% 07/25/2022 documented as of this encounter (statuses as of 06/15/2023) Resolved Problems Problem Noted Date Diagnosed Date Resolved Date Morbid obesity 09/05/2022 04/06/2023 Overview: Per Obesity protocol documented as of this encounter (statuses as of 06/15/2023) Social History Tobacco Use Types Packs/Day Years Used Date Smoking Tobacco: Never Smokeless Tobacco: Never Alcohol Use Standard Drinks/Week Comments Yes 0 (1 standard drink = 0.6 oz pur e alcohol) rarely Sex and Gender Information Value Date Recorded Sex Assigned at Male 09/05/2022 9:12 AM EDT Gender Identity Male 09/05/2022 9:12 AM EDT Sexual Orientation Not on file Job Start Date Occupation Industry Not on file Not on file Not on file documented as of this encounter Miscellaneous Notes * Telephone Encounter - [place] Heaton, [facility] - 06/15/2023 7:11 AM EDT Watchpat study was successfully uploaded. Date of Service: 06.12.2023 documented in this encounter Plan of Treatment Health Maintenance Due Date Last Done Comments [...] filedocumented as of this encounter Care Teams Used Car Lot Porter Relationship Specialty Start Date End Date Ean Rodriguez MD [address] [place] [id number] PCP - General Family Medicine 09/06/22 documented as of this encounter
--- OUTSIDE RECORDS SUMMARY | 2023-12-08 07:12 | External Medical Summary | Continuity of Care Document ---
Author Name Unknown Organization [facility] [address] [address] Address [address] [place] [id number] Encounter PS FINNBR [id number] Date(s): 11/07/23 - 11/07/23 [facility] [address] [facility] [address] [facility] Medicine [address] [place] [id number] Encounter Diagnosis Sacroiliac joint pain(Discharge Diagnosis) - 11/07/23 Discharge Disposition: Home or Self Care Attending Physician: MD Walker Paul S Allergies, Adverse Reactions, Alerts Substance Criticality Severity Reaction Reaction Severity Status ibuprofen GI Active penicillin hives Active Non-Asprin GI Active Medications atorvastatin 20 mg oral tablet Start: 10/27/23 10:12:00 AM EDT Start Date: 10/27/23 Status: Ordered hydrochlorothiazide-lisinopril 12.5 mg-10 mg oral tablet Start: 10/27/23 10:12:00 AM EDT Start Date: 10/27/23 Status: Ordered Trulicity Pen 0.75 mg/0.5 mL subcutaneous solution Start: 10/27/23 10:12:00 AM EDT Start Date: 10/27/23 Status: Ordered Mental Status 11/07/23 Barriers to Learning one year None evide nt Mandatory Health Literacy Documentation Yes Health Literacy Communication Barriers N ever Primary Language Syriac Problem List Condition Confirmation Course Effective Dates Status Health St atus Informant Degenerative arthritis of knee, bilateral Confirmed Active Sacroiliac joint pain Confirmed Active Diagnosis Diagnosis Type Effective Dates Health Status Clinical Service Informant Sacroiliac joint pain Discharge Diagnosis 11/07/23 Non-Specified Social History Social History Type Response Smoking Status Never smoked cigaret su Sex Male Sex Representation Male (finding) Ortho Outpt Note * Rolanda Laughlin: PERFORM, MODIFY Event Display: Ortho Outpt Note Authored Date: [id number] Name:KISHAN MANN Patient Number:[id number] :[id number] Date of Service:11/07/2023 CHIEF COMPLAINT: Follow-up bilateral knee and SI joint pain HPI: Chele Shultz presents today forfollow-up bilateral knee and SI joint pain.On 10/27/2023 he had intraarticular cortisone injections of bilateral knees that gave him good relief of his knee pain and states they are doing great. He found relief of his SI joint pain with the Medrol Dosepak nearly immediately and was able to go to the football game later the sameweek. However, the pain then came back severely, left sideworse than right. He tried topical Voltaren gel which resulted in GI side-effects. He denies radiation of pain down his legs, numbness, andtingling. PHYSICAL EXAM: Focusing on the patient'sbilaterallylower extremities: Tenderness SI joints, left greater than right Positive Massimo's the left DIAGNOSTIC REVIEW: I obtained and personally interpreted 3 views of [facility]st[facility] at [facility] which shows probable mild degenerative change of the SI joints and mild degenerative change of the lumbar spine. Right hip has arthritis. There is no fractures. IMPRESSION: 1) SI joint pain 2) Bilateral knee arthritis, responding to injections PLAN: Medication as needed for pain including Tylenol and occasional Advil or Aleve Heat or ice as needed for pain Consideration for PT or Sacroiliac belt Consultation referral provided for evaluation and possible SI joint injection with Dr. Gregorio Follow-up as needed ATTESTATION: Rolanda Banks, scribing for and in the presence of, Misael Walker, on this date,407:30:01. Electronic Signature on File Electronically Reviewed/Signed by: Rolanda Laughlin Author Signature Dt/Tm:11/07/2023 08:20 AM Electronically Reviewed/Signed by: Misael Walker MD Cosigner Signature Dt/Tm: 11/09/2023 01:19 PM Division of Sports Medicine [place]
--- OUTSIDE RECORDS SUMMARY | 2023-12-08 07:12 | External Medical Summary | Summary of Care ---
Author Name Unknown Organization [facility] Address [address] [place] [address] Phone [phone] Care Team Providers Care Sandblaster Supervisor Name Role Phone Ean Rodriguez MD Primary Care Provider [phone] [phone] Reason for Visit * Reason Comments Review Sleep Study WatchPAT Encounter Details Date Type Department Care Team (Latest Contact Info) Description 06/12/2023 11:00 AM EDT PulmDiagnostic Sleep Lab Magdal[facility] Navarre[facility] [address] [facility] [place] [address] [facility] Sleep Med Home Study [facility] [address] [facility] [place] [address] Obstructive sleep apnea* Allergies Active Allergy Reactions Criticality Noted Date Comments Aspirin 02/24/2011 Azithromycin 02/24/2011 Z NILA DOESN'T WORK Clarithromycin 02/24/2011 GI Erythromycin 02/24/2011 GI Fluticasone-Salmeterol Rash Low 11/05/2012 Non-pruritic Metformin 07/19/2017 Other reaction(s): GI Upset Penicillins 02/24/2011 CEPHALOSPORINS, [place] Tetracycline 02/24/2011 GI documented as of this encounter (statuses as of 07/10/2023) Medications Medication Sig Dispensed Refills Start Date [...] as of this encounter (statuses as of 07/10/2023) Active Problems Problem Noted Date Diagnosed Date Body mass index (BMI) of 40.0 to 44.9 in adult 0 04/03/2023 Overview: Per Obesity protocol Organic erectile dysfunction 07/26/2022 HTN, goal below 130/80 07/25/2022 Dyslipidemia 07/25/2022 Type 2 diabetes mellitus wit h hemoglobin A1c goal of less than 7.0% 07/25/2022 documented as of this encounter (statuses as of 07/10/2023) Resolved Problems Problem Noted Date Diagnosed Date Resolved Date Morbid obesity 09/05/2022 04/06/2023 Overview: Per Obesity protocol documented as of this encounter (statuses as of 07/10/2023) Social History Tobacco Use Types Packs/Day Years [...] on file documented as of this encounter Progress Notes * Krys Hill, - 07/10/2023 12:58 PM EDT WatchPAT home sleep apnea test report uploaded, viewable through Media attached to this encounter. documented in this encounter Plan of Treatment Scheduled Orders Name Type Priority Associated Diagnoses Orde r Schedule TIMED SLEEP STUDY, UNATTEND, HR/O2 SAT/RESP Procedures Routine Obstructive sleep apnea HTN, goal below 130/80 Ordered: 03/02/2023 Health Maintenance Due Date Last Done Comments [...] Vaccines (1 of 2) 2008 COVID-19 Vaccine (2022- season) 2022 12/23/2021, 08/03/2021, 11/25/2020, Additional history [...] as of this encounter Visit Diagnoses Diagnosis Obstructive sleep apnea- Primary Obstructive sleep apnea (adult) (pediatric) documented in this encounter Care Teams Sandblaster Supervisor Relationship Specialty Start Date End Date Ean Rodriguez MD [address] [place] [address] PCP - General Family Medicine 09/06/22 documented as of this encounter
--- OUTSIDE RECORDS SUMMARY | 2023-12-08 07:12 | External Medical Summary | Summary of Care ---
Author Name Unknown Organization [facility] Address [address] [place] [address] Phone [phone] Care Team Providers Care Plant Attendant Name Role Phone Milind Conklin MD Primary Care Provider [phone] [phone] Reason for Visit * Reason Onset Date Comments Medication Refill 07/19/2023 Encounter Details Date Type Department Care Team (Late st Contact Info) Description 07/19/2023 Refill Family Practice [facility] [address] [place] [address] Milind Conklin MD [address] [place] [address] Allergies Active Allergy Reactions Criticality Noted Date Comments Aspirin 02/24/2011 Azithromycin 02/24/2011 Z NILA DOESN'T WORK Clarithromycin 02/24/2011 GI Erythromycin 02/24/2011 GI Fluticasone-Salmeterol Rash Low 11/05/2012 Non-pruritic Metformin 07/19/2017 Other reaction(s): GI Upset Penicillins 02/24/2011 CEPHALOSPORINS, [place] Tetracycline 02/24/2011 GI documented as of this encounter (statuses as of 07/20/2023) Medications Medication Sig Dispensed Refills Start Date [...] MOUTH DAILY. 60 Tablet 1 07/26/2022 Active Lisinopril-hydroC HLOROthiazide 10-12.5 MG Oral Tablet Take 1 Tablet [...] the morning. 90 Tablet 1 07/20/2023 Active Atorvastatin Calcium 20 MG Oral Tablet (Lipitor) Take 1 Tablet by mouth in the morning. 90 Tablet 3 07/26/2022 4 Discontinu ed(Refill) documented as of this encounter (statuses as of 07/20/2023) Active Problems Problem Noted Date Diagnosed Date Body mass index (BMI) of 40.0 to 44.9 in adult 0 04/03/2023 Overview: Per Obesity protocol Organic erectile dysfunction 07/26/2022 HTN, goal below 130/80 07/25/2022 Dyslipidemia 07/25/2022 Type 2 diabetes mellitus wit h hemoglobin A1c goal of less than 7.0% 07/25/2022 documented as of this encounter (statuses as of 07/20/2023) Resolved Problems Problem Noted Date Diagnosed Date Resolved Date Morbid obesity 09/05/2022 04/06/2023 Overview: Per Obesity protocol documented as of this encounter (statuses as of 07/20/2023) Social History Tobacco Use Types Packs/Day Years [...] encounter Miscellaneous Notes * Telephone Encounter - Chiki Bang [facility] - 07/20/2023 9:17 AM EDTSigned Prescriptions: Disp Refills Atorvastatin Calcium 20 MG Oral Tablet (Li*90 Tab*1 Sig: Take 1 Tablet by mouth in the morning.Authorizing Provider: MILIND CONKLIN User: CHIKI BANG * Telephone Encounter - Jazmine Greenberg [facility] - 07/20/2023 9:14 AM EDT Pt is asking for high priority because he is going out of town tomorrow and needs it before then. Did you pend patient's preferred pharmacy and medication before forwarding?yes Pharmacy: [id number] [facility] Pending Prescriptions: Disp Refills Atorvastatin Calcium 20 MG Oral Tablet (L*90 Tab*3 Sig: Take 1 Tablet by mouth in the morning. Last Visit: 09/06/2022 (in office), Visit date not found (telemedicine) Next Visit: Visit date not found If no future appointments scheduled, and last appointment is greater than a year ago, please schedule patient for a follow-up appointment Last date the medication was ordered: 07/26/22 Is this request for a controlled substance?No Urine Drug Screen:No results found for this or any previous visit. Patient Phone Numbers Labs: Lab Results Component Value Date/Time CREAT 0.9 04/13/2023 10:07 AM CREAT 1.00 01/19/2022 12:00 AM POTASSIUM 4.4 04/13/2023 10:07 AM POTASSIUM 4.0 01/19/2022 12:00 AM LDLCALC 46 04/13/2023 10:07 AM LDLCALC 42 01/19/2022 12:00 AM ALT 16 04/13/2023 10:07 AM HGBA1C 6.5 (H) 04/13/2023 10:07 AM HGBA1C 6.0 (A) 01/19/2022 12:00 AM documented in this encounter Plan of Treatment Upcoming Encounters Date Type Department Care Team (Late st Contact Info) Description 03/06/2024 11:20 AM EST Office Visit Sleep Disorders Ctr [facility] [address] [place] [address] Krys Hill DO [address] [place] [address] Health Maintenance Due Date Last Done Comments [...] filedocumented as of this encounter Care Teams Plant Attendant Relationship Specialty Start Date End Date Milind Conklin MD [address] [place] [address] PCP - General Family Medicine 09/06/22 documented as of this encounter
--- OUTSIDE RECORDS SUMMARY | 2023-12-08 07:12 | External Medical Summary | Continuity of Care Document ---
Author Name Unknown Organization [facility] [address] [facility] [address] Address [address] [place] [phone] Encounter [facility] FINNBR [id number] Date(s): 10/27/23 - 10/27/23 [facility] [address] [facility] [address] [facility] Medicine [address] [place] [id number] Encounter Diagnosis Sacroiliac joint pain(Discharge Diagnosis) - 10/27/23 Degenerative arthritis of knee, bilateral(Discharge Diagnosis) - 10/27/23 Discharge Disposition: Home or Self Care Attending Physician: MD Denise, Misael Duarte Allergies, Adverse Reactions, Alerts Substance Criticality Severity Reaction Reaction Severity Status ibuprofen GI Active penicillin hives Active Non-Asprin GI Active Medications atorvastatin 20 mg oral tablet Start: 10/27/23 10:12:00 AM EDT Start Date: 10/27/23 Status: Ordered hydrochlorothiazide-lisinopril 12.5 mg-10 mg oral tablet Start: 10/27/23 10:12:00 AM EDT Start Date: 10/27/23 Status: Ordered Medrol Dosepak 4 mg oral tablet Start: 10/27/23 10:52:00 AM EDT, See Instructions, Disp# 21 tab, Refills: 0, Take as directed on package labeling for 6 days., [facility]acy[id number] Start Date: 10/27/23 Stop Date: 11/02/23 Status: Ordered Trulicity Pen 0.75 mg/0.5 mL subcutaneous solution Start: 10/27/23 10:12:00 AM EDT Start Date: 10/27/23 Status: Ordered Mental Status 10/27/23 Barriers to Learning one year None evide nt Mandatory Health Literacy Documentation Yes Health Literacy Communication Barriers N ever Primary Language Vietnamese Problem List Condition Confirmation Course Effective Dates Status Health St atus Informant Degenerative arthritis of knee, bilateral Confirmed Active Sacroiliac joint pain Confirmed Active Diagnosis Diagnosis Type Effective Dates Health Status Clinical Service Informant Degenerative arthritis of knee, bilateral Discharge Diagnosis 10/27/23 Non-Specified Sacroiliac joint pain Discharge Diagnosis 10/27/23 Non-Specified Vital Signs Most recent to oldest [Reference Range]: 1 Height 185 cm (10/27/23 10:09 AM) Patient Weight 154.4 kg (10/27/23 10:09 AM) Body Mass Index 45.11 kg/m2 (10/27/23 10:09 AM) Social History Social History Type Response Smoking Status Never smoked cigaret su Sex Male Sex Representation Male (finding)
--- OUTSIDE RECORDS SUMMARY | 2023-12-08 07:12 | External Medical Summary | Summary of Care ---
Author Name Unknown Organization [facility] Address [address] [place] [address] Phone [phone] Care Team Providers Care Product Manager Medical Device Name Role Phone Ean Rodrigeuz MD Primary Care Provider [phone] Reason for Visit * Reason Comments eRx-Medication Refill Encounter Details Date Type Department Care Team (Late st Contact Info) Description 07/20/2023 Refill Family Practice [facility] [address] [facility] [place] [address] Ean Rodriguez MD [address] [facility] [place] [address] Allergies Active Allergy Reactions Criticality Noted Date [...] AM EST Office Visit Sleep Disorders Ctr [facility] [address] [place] [phone] Krys Hill DO [address] [place] [address] Health Maintenance Due Date Last Done Comments [...] filedocumented as of this encounter Care Teams Product Manager Medical Device Relationship Specialty Start Date End Date Ean Rodriguez MD [address] [place] [address] PCP - General Family Medicine 09/06/22 documented as of this encounter
--- OUTSIDE RECORDS SUMMARY | 2023-12-08 07:12 | External Medical Summary | Summary of Care ---
Author Name Unknown Organization [facility] Address [address] [place] [address] Phone [phone] Care Team Providers Care Humanities Coordinator Name Role Phone Ean Rodriguez MD Primary Care Provider [phone] [phone] Reason for Visit * Reason Onset Date Comments Sleep Apnea Device 07/04/2023 Encounter Details Date Type Department Care Team (Late st Contact Info) Description 07/04/2023 Telephone Sleep Lab, [address] [id number] Krys Hill, DO [address] [place] [address] Sleep Apnea Device Allergies Active Allergy Reactions Criticality Noted Date Comments Aspirin 02/24/2011 Azithromycin 02/24/2011 Z NILA DOESN'T WORK Clarithromycin 02/24/2011 GI Erythromycin 02/24/2011 GI Fluticasone-Salmeterol Rash Low 11/05/2012 Non-pruritic Metformin 07/19/2017 Other reaction(s): GI Upset Penicillins 02/24/2011 CEPHALOSPORINS, [place] Tetracycline 02/24/2011 GI documented as of this encounter (statuses as of 07/04/2023) Medications Medication Sig Dispensed Refills Start Date [...] as of this encounter (statuses as of 07/04/2023) Active Problems Problem Noted Date Diagnosed Date Body mass index (BMI) of 40.0 to 44.9 in adult 0 04/03/2023 Overview: Per Obesity protocol Organic erectile dysfunction 07/26/2022 HTN, goal below 130/80 07/25/2022 Dyslipidemia 07/25/2022 Type 2 diabetes mellitus wit h hemoglobin A1c goal of less than 7.0% 07/25/2022 documented as of this encounter (statuses as of 07/04/2023) Resolved Problems Problem Noted Date Diagnosed Date Resolved Date Morbid obesity 09/05/2022 04/06/2023 Overview: Per Obesity protocol documented as of this encounter (statuses as of 07/04/2023) Social History Tobacco Use Types Packs/Day Years [...] Notes * Telephone Encounter - India Heaton, [facility] - 07/04/2023 12:52 PM EDT Watchpat study was successfully uploaded. Date [...] filedocumented as of this encounter Care Teams Humanities Coordinator Relationship Specialty Start Date End Date Ean Rodriguez MD [address] [place] [address] PCP - General Family Medicine 09/06/22 documented as of this encounter
--- OUTSIDE RECORDS SUMMARY | 2023-12-08 07:12 | External Medical Summary | Summary of Care ---
Author Name Unknown Organization [facility] Address [address] [place] [address] Phone [phone] Care Team Providers Care Director Museum Or Zoo Name Role Phone Milind Conklin MD Primary Care Provider [phone] [phone] Reason for Visit * Reason Onset Date Comments Medication Refill 08/11/2023 Encounter Details Date Type Department Care Team (Late st Contact Info) Description 08/11/2023 Refill Family Practice [facility] [address] [place] [address] Milind Conklin MD [address] [facility] [place] [address] Type 2 diabetes mellitus with hemoglobin A1c goal of less than 7.0% ([facility]) Allergies Active Allergy Reactions Criticality Noted Date [...] TIME PER WEEK 6 mL 08/11/2023 Active Trulicity 0.75 MG/0.5ML Subcutaneous Solution Pen-injector (Dulaglutide)Chely cations:Type 2 diabetes mellitus with hemoglobin A1c goal of less than 7.0% (HCC) INJECT 0.75 MG SUBCUTANEOUSLY ONE TIME PER WEEK 6 mL 1 04/14/2023 4 Discontinu ed(Refill) documented as of this [...] Notes * Telephone Encounter - Anna Mendoza [facility] - 08/11/2023 10:05 AM EDT Signed Prescriptions: Disp Refills Trulicity 0.75 MG/0.5ML Subcutaneous Solut*6 mL 0 Sig: INJECT 0.75 MG SUBCUTANEOUSLY ONE TIME PER WEEKAuthorizing Provider: MILIND CONKLIN User: ANNA MENDOZA * Telephone Encounter - Hamida Vogt [facility] - 08/11/2023 9:57 AM EDT Pt is out. Did you pend patient's preferred pharmacy and medication before forwarding?yes Pharmacy[id number] [facility] Pending Prescriptions: Disp Refills Trulicity 0.75 MG/0.5ML Subcutaneous Solu*6 mL 1 Sig: INJECT 0.75 MG SUBCUTANEOUSLY ONE TIME PER WEEK Last Visit: 09/06/2022 (in office), Visit date not found (telemedicine) Next Visit: Visit date not found If no future appointments scheduled, and last appointment is greater than a year ago, please schedule patient for a follow-up appointment Last date the medication was ordered: 04/14/23 Is this request for a controlled substance?No [...] AM EST Office Visit Sleep Disorders Ctr [facility] [address] [place] [phone] Krys Hill DO [address] [facility] [place] [address] Health Maintenance Due Date Last Done Comments [...] (HCC) documented in this encounter Care Teams Director Museum Or Zoo Relationship Specialty Start Date End Date Milind Conklin MD [address] [place] [address] PCP - General Family Medicine 09/06/22 documented as of this encounter
--- OUTSIDE RECORDS SUMMARY | 2023-12-08 07:12 | External Medical Summary | Summary of Care ---
Author Name Unknown Organization [facility] Address [address] [place] [address] Phone [phone] Care Team Providers Care Dietetic Assistant Name Role Phone Milind Conklin MD Primary Care Provider +1 [phone] Reason for Visit * Reason Comments eRx-Medication Refill Encounter Details Date Type Department Care Team (Late st Contact Info) Description 08/16/2023 Refill Family Practice [facility] [address] [facility] [place] [address] Milind Conklin MD [address] [facility] [place] [id number] Type 2 diabetes mellitus with hemoglobin A1c goal of less than 7.0% ([facility])* Allergies Active Allergy Reactions Criticality Noted Date Comments Aspirin 02/24/2011 Azithromycin 02/24/2011 Z NILA DOESN'T WORK Clarithromycin 02/24/2011 GI Erythromycin 02/24/2011 GI Fluticasone-Salmeterol Rash Low 11/05/2012 Non-pruritic Metformin 07/19/2017 Other reaction(s): GI Upset Penicillins 02/24/2011 CEPHALOSPORINS, [place] Tetracycline 02/24/2011 GI documented as of this encounter (statuses as of 09/15/2023) Medications Medication Sig Dispensed Refills Start Date [...] DAY IN THE MORNING 90 Tablet 4 Active Lisinopril-hydroC HLOROthiazide 10-12.5 MG Oral Tablet Take 1 Tablet by mouth in the morning. 90 Tablet 3 3 08/16/19 24 Discontinued documented as of this encounter (statuses as of 09/15/2023) Active Problems Problem Noted Date Diagnosed Date Body mass index (BMI) of 40.0 to 44.9 in adult 0 04/03/2023 Overview: Per Obesity protocol Organic erectile dysfunction 07/26/2022 HTN, goal below 130/80 07/25/2022 Dyslipidemia 07/25/2022 Type 2 diabetes mellitus wit h hemoglobin A1c goal of less than 7.0% 07/25/2022 documented as of this encounter (statuses as of 09/15/2023) Resolved Problems Problem Noted Date Diagnosed Date Resolved Date Morbid obesity 09/05/2022 04/06/2023 Overview: Per Obesity protocol documented as of this encounter (statuses as of 09/15/2023) Social History Tobacco Use Types Packs/Day Years [...] Miscellaneous Notes * Telephone Encounter - Meka Gordon [facility] - 09/15/2023 10:38 AM EDT Pt is also due for A1C. A1C ordered. Received message from [facility] regarding patient needing an appointment and labs. Call Placed, Left message on [employer] advising of required labs and to call back for an appointment. Thank you, Meka Gordon, PharmD Clinical Pharmacist [facility] ([facility] [phone] 09/15/2023, 10:38 AM * Telephone Encounter - Curtis Rojo [facility] - 08/16/2023 11:46 AM EDTSigned Prescriptions: Disp Refills Lisinopril-hydroCHLOROthiazide 10-12.5 MG *90 Tab*0 Sig: TAKE 1 TABLET BY MOUTH EVERY DAY IN THE MORNING Authorizing Provider: MILIND CONKLIN Ordering User: CURTIS ROJO * Telephone Encounter - Curtis Rojo [facility] - 08/16/2023 11:45 AM EDT Please contact patient so that an appointment can be scheduled with his PRIMARY CARE provider. Refill authorized to hold patient over in the mean time. Last Visit: 09/06/2022 (in office), Visit date not found (telemedicine) Next Visit: Visit date not found Curtis Malin, [employer] Wire Steward 08/16/2023, 11:45 AM documented in this encounter Plan of Treatment Upcoming Encounters Date Type Department Care Team (Late st Contact Info) Description 03/06/2024 11:20 AM EST Office Visit Sleep Disorders Ctr [facility] [address] [place] [phone] Krys Hill DO [address] [place] [id number] Scheduled Orders Name Type Priority Associated Diagnoses Orde r Schedule HEMOGLOBIN A1C Lab Routine Type 2 diabetes mellitus with hemoglobin A1c goal of less than 7.0% (HCC) Expected: 09/15/2023, Expires: 09/14/2024 Health Maintenance Due Date Last Done Comments [...] (1 of 2) 2008 COVID-19 Vaccine ( - season) 2022 12/23/2021, 08/03/2021, 11/25/2020, Additional history exists HbA1c 10/12/2023 04/13/2023, 01/19/2022 Influenza Vaccine (FLU shot) (#1) 2023 11/11/2022, [...] goal of less than 7.0% (HCC)- Primary documented in this encounter Care Teams Dietetic Assistant Relationship Specialty Start Date End Date Milind Conklin MD [address] [place] [address] PCP - General Family Medicine 09/06/22 documented as of this encounter
[2023-12-08] MEDS: D5NSS + 20MEQ KCL 20 MEQ/1,000 ML BAG IV SCH (08:36)
[2023-12-08] MEDS: POTASSIUM CHLORIDE / WTR 10 MEQ/100 ML PLCT IV SCH (08:36)
--- NOTE | 2023-12-08 10:01 | CT Scan Report ---
CT chest diagnostic wo con CLINICAL HISTORY: metastatic disease TECHNIQUE: Multidetector row helical CT of the chest was performed. Coronal and sagittal reformations were obtained. Automated dose lowering techniques and/or adjustment according to patient size were u tilized for this exam. CT DOSE: 1045.56 mGy.cm Comparison: Comparison is made to chest radiograph 12/07/2023 FINDINGS: Lungs and pleura: Normal. Heart and pericardium: Heart size is normal. No pericardial effusion. Vessels: Moderate atherosclerotic changes in the aorta and coronary arteries. Mediastinum and teresa: Unremarkable. Chest wall and lower neck: Unremarkable. Abdomen: Unremarkable. Bones: Degenerative changes in the thoracic spine. IMPRESSION: No evidence of metastatic disease above the diaphragm. ACT 112: Negative or not required by law. Electronically signed by: Daren Velazco M.D. 12/08/2023 10:00 AM
[2023-12-08] MEDS: PLASMA-LYTE A 1,000 ML IV SCH (12:47)
[2023-12-08 12:53] LABS: Adenovirus F 40/41 PCR Not Detected (NotDetected); Astrovirus PCR Not Detected (NotDetected); Campylobacter PCR Not Detected (NotDetected); Cryptosporidium PCR Not Detected (NotDetected); Cyclospora cayetanensis PCR Not Detected (NotDetected); Entamoeba histolytica PCR Not Detected (NotDetected); Enteroaggregative E.coli(EAEC) Not Detected (NotDetected); Enteropathogenic E.coli (EPEC) Not Detected (NotDetected); Enterotoxigenic E.coli (ETEC) Not Detected (NotDetected); Giardia lamblia PCR Not Detected (NotDetected); Norovirus GI/GII PCR Not Detected (NotDetected); Plesiomonas shigelloides PCR Not Detected (NotDetected); Rotavirus A PCR Not Detected (NotDetected); Salmonella PCR Not Detected (NotDetected); Sapovirus PCR Not Detected (NotDetected); Shiga-like Toxin E.coli (STEC) Not Detected (NotDetected); Shigella/Enteroinvasive E.coli Not Detected (NotDetected); Vibrio cholerae PCR Not Detected (NotDetected); Vibrio species PCR Not Detected (NotDetected); Yersinia enterocolitica PCR Not Detected (NotDetected)
--- NOTE | 2023-12-08 13:05 | Gastrointestinal Consultation ---
<Statement entered by Jonnathan Ayers MD - 12/08/23 15:14> I personally saw and examined the patient. I have reviewed the chart and agree with the documentation provided by the TAFE LECTURER including discussion about the assessment, treatment and plan. Briefly, 63 year old male with a past medical history of type 2 diabetes on Trulicity, dyslipidemia, RANDALL, hypertension, and morbid obesity who presented with 1 week of diarrhea, nausea and vomiting and found to have sepsis secondary to gastroenteritis, partial SBO, ALAYNA, and abnormal CT abd/pelvis showing partial small bowel obstruction and ill defined mesenteric densities concerning for metastatic disease. CEA was elevated to 22. Patient feels a lot better now and he is having no nausea and vomiting. He is tolerating a clear liquid diet. Lets advance him to a soft solid diet and see how he does. Had a long discussion with his son and the patient and they would like a colonoscopy in a more expedited fashion. I think this is quite reasonable given the elevated CEA and the abnormal CT scan. We will prep him on Monday and proceed with a colonoscopy on Monday. If there is any issues over the weekend please contact GI as we will follow from afar Date of Consultation December 08, 2023 Assessment & Plan (1) Abnormal CT scan, pelvis: (2) SBO (small bowel obstruction): Plan Patient is a 63 year old male with a past medical history of type 2 diabetes on Trulicity, dyslipidemia, RANDALL, hypertension, and morbid obesity who presented with 1 week of diarrhea, nausea and vomiting and found to have sepsis secondary to gastroenteritis, partial SBO, ALAYNA, and abnormal CT abd/pelvis showing partial small bowel obstruction and ill defined mesenteric densities concerning for metastatic disease. CEA was elevated. - Unlikely a true obstruction given he has had ongoing bowel movements. Patient will need a colonoscopy to further evaluate the abnormal CT. If patient is still inpatient, can plan for colonoscopy next week. The patient prefers to have done as an outpatient. - I will discuss further with Dr. Ayers, further recommendations will follow. History of Present Illness Reason for Consultation: elevated CEA, Bowel obstruction, and ? of kain Requesting Physician: Ye Mueller DO Attending Physician: Fredy Mueller DO History of Present Illness Patient is a 63 year old male with a past medical history of type 2 diabetes on Trulicity, dyslipidemia, RANDALL, hypertension, and morbid obesity who presented with 1 week of diarrhea, nausea and vomiting and found to have sepsis secondary to gastroenteritis, partial SBO, ALAYNA, and abnormal CT abd/pelvis showing partial small bowel obstruction and ill defined mesenteric densities concerning for metastatic disease. During work up he was found to have a CEA of 29.1. He did have a colonoscopy done 15 years ago that was unremarkable per patient. He has seen surgery who felt no surgical intervention was needed. heme/onc was suggesting possible scope to evaluate further. He tells me that since admission his symptoms have resolved. no furhter nausea/vomiting. He had a bowel movement today with more formed stool. no blood in the stools. no melena. Allergies Allergy/AdvReac Type Severity Reaction Status Date / Time Penicillins Allergy Unknown rash as a Verified 12/07/23 14:53 kid Home Medications Medication Instructions Recorded Confirmed Type atorvastatin 20 mg tablet 20 mg PO QAM 12/07/23 12/07/23 History dulaglutide 0.75 mg/0.5 mL 0.75 mg subcut WK 12/07/23 12/07/23 History subcutaneous pen injector (Trulicity) lisinopril 10 1 tab PO QAM 12/07/23 12/07/23 History mg-hydrochlorothiazide 12.5 mg tablet omeprazole 40 mg capsule,delayed 40 mg PO DAILYBB 12/07/23 12/07/23 History release ondansetron 4 mg disintegrating 4 mg translingual Q8 PRN Nausea 12/07/23 12/07/23 History tablet Patient History Medical History (Updated 12/07/23 @ 18:51 by Milady Kiser MD) HTN (hypertension) GERD (gastroesophageal reflux disease) Obesity (BMI 30-39.9) Diabetes mellitus, type II Surgical History (Updated 12/07/23 @ 16:41 by Keiko Mooney PA-C) History of appendectomy Family History Other Liver cancer Social History Smoking Status: Never smoker Hx Alcohol Use: No Hx Substance Use: No Preferred Language: Bulgarian Communication Ability: Effective Python Programmer Required: No Beliefs That Will Affect Care: None Current Living Situation: Spouse Other Information That Helps Us Care for You: No Feels Safe at Home: Yes Safety Concerns: Feels Safe At This Time Assistive Devices: CPAP Review of Systems Review of Systems: All systems reviewed & are unremarkable except as noted in HPI & below Physical Exam Constitutional: WD/WN, vitals as above Respiratory: normal respiratory effort, lungs clear to auscultation Cardiovascular: Rate/Rhythm: regular rate and regular rhythm Gastrointestinal (Abdomen): normal bowel sounds, soft, nontender, no hepatospl enomegaly Psychiatric: Orientation: alert and oriented x 3 Affect: euthymic affect Results & Data Vital Signs (Past 12 Hours) Vital Signs Temp Pulse Pulse Resp BP Pulse Ox O2 Del Method 12/08/23 12:25 97.7 F 90 20 104/66 96 Room Air 12/08/23 08:45 88 12/08/23 07:30 97.3 F L 91 H 20 94/57 L 99 Room Air 12/08/23 02:26 97.5 F L 83 18 99/62 L 97 Room Air, CPAP 12/08/23 01:23 87 Coding Level of Care Code 76666 IN/OBS CONSULT LVL 3,45M Diagnoses Abnormal CT scan, pelvis R93.5 SBO (small bowel obstruction) K56.609
--- NOTE | 2023-12-08 13:41 | Surgery Progress Note ---
Date of Service December 08, 2023 Assessment & Plan (1) Abnormal CT scan, pelvis: (2) ALAYNA (acute kidney injury): (3) SBO (small bowel obstruction): (4) Sepsis: (5) Severe dehydration: Plan: 63-year-old male with a history of diarrhea starting on November 29 with subsequent low appetite, fatigue, weakness, nausea and vomiting that started yesterday presenting to the emergency room with generalized weakness and was found to have significant hypotension with systolic blood pressure in the 50s. CT scan of the abdomen pelvis without contrast due to acute kidney injury showing dilated small intestine up to 4 cm however no transition zone concerning for possible partial small bowel obstruction. There is also evidence of mesenteric masses which could be consistent with metastatic disease of unknown primary. 12/08/2023 avss leukocytosis significantly improved to 10 K (24K) Creatinine improved to 2.5 + bowel funtcion, no abdominal pain, n,v abdominal exam benign CT chest negative, CEA elevated Plan: No acute surgical intervention required. Okay form surgical standpoint for advancing diet pending Medical/oncology work-up. Consider IR for biopsy of mesenteric mass Continue medical management [facility] surgery covering weekend. Admission and Anticipated Discharge Date Admission Date: December 07, 2023 Subjective feeling much better this morning no abdominal pain no n,v having loose stools and passing some gas Physical Exam Constitutional: WD/WN, vitals as above + morbidly obese, cooperative and comfortable; no acute distress and not ill appearing Gastrointestinal (Abdomen): Inspection/Auscultation: + hypoactive bowel sounds Percussion/Palpation: abdomen soft; abdomen nontender, no guarding, abdomen not rigid and abdomen not firm Skin: no rashes, warm and dry Results & Data Vital Signs (Past 12 Hours) Vital Signs Temp Pulse Pulse Resp BP Pulse Ox O2 Del Method 12/08/23 12:25 36.5 C 90 20 104/66 96 Room Air 12/08/23 08:45 88 12/08/23 07:30 36.3 C L 91 H 20 94/57 L 99 Room Air 12/08/23 02:26 36.4 C L 83 18 99/62 L 97 Room Air, CPAP Laboratory Results 12/08/23 12/08/23 12/08/23 Range/Units 12:15 10:06 06:07 WBC (4.8-10.8) K/ul RBC (4.70-6.10) M/uL Hgb (14.0-18.0) g/dl POC Hgb (14.0-18.0) g/dl Hct (42.0-52.0) % POC Hct (42-52) % MCV (80.0-100.0) fL MCH (25.0-34.0) pg MCHC (32.0-36.0) g/dL RDW Std Deviation (36.4-46.3) fL RDW Coeff of Mitchell (11.5-14.5) % Plt Count (130-400) K/uL MPV (9.4-12.4) fL Immature Gran % (Auto) % Neut % (Auto) % Lymph % (Auto) % Wallace % (Auto) % Eos % (Auto) % Baso % (Auto) % Neut # (Auto) (1.40-6.50) K/uL Lymph # (Auto) (1.20-3.40) K/uL Wallace # (Auto) (0.11-0.59) K/uL Eos # (Auto) (0.00-0.50) K/uL Baso # (Auto) (0.00-0.20) K/uL Immature Gran # (Auto) (0.01-0.20) K/uL Toxic Vacuolation Dohle Bodies Echinocytes PT (9.0-12.0) Seconds INR (0.9-1.1) APTT (21-31) Seconds PTT Ratio VBG pH (7.36-7.41) VBG pCO2 (38-50) mmHg VBG pO2 mmHg VBG HCO3 mmol/L VBG O2 Saturation % VBG Base Excess mEq/L POC Sodium (135-144) mmol/L Sodium (136-145) mmol/L POC Potassium (3.3-5.0) mmol/L Potassium (3.5-5.1) mmol/L POC Chloride (101-112) mmol/L Chloride (98-107) mmol/L Carbon Dioxide (21-32) mmol/L POC Total CO2 (24-31) mmol/L Anion Gap (3-11) POC Anion Gap (16-25) mmol/L POC BUN (7-18) mg/dl BUN (6-23) mg/dl Creatinine (0.6-1.4) mg/dl POC Creatinine (0.6-1.3) mg/dl Est Cr Clr Drug Dosing ml/min eGFR BUN/Creatinine Ratio (10-20) Glucose (70-99(Fasting)) mg/dl POC Glucose 122 H 96 (70-99) mg/dl POC Glucose (other) (70-99) mg/dl Lactate (0.4-2.0) mmol/L Calcium (8.6-10.3) mg/dl POC Ioniz Calcium Ruddy (1.12-1.32) mmol/l Magnesium (1.7-2.4) mg/dl Iron (35-175) mcg/dl TIBC (250-450) mcg/dl Unsaturated IBC (155-355) mcg/dl Transferrin % Sat (20-50) % Ferritin (8-388) ng/ml Total Bilirubin (0.2-1.0) mg/dl Direct Bilirubin (0-0.2) mg/dl AST (13-39) U/L ALT (7-52) U/L Alkaline Phosphatase (34-104) U/L Lactate Dehydrogenase (86-244) U/L Troponin I High Sens (0-20) pg/ml Total Protein (6.0-8.3) gm/dl Albumin (3.4-5.0) gm/dl Globulin (2.5-4.0) gm/dl Albumin/Globulin Ratio (0.9-2) Carcinoembryonic Ag (0-2.5) ng/ml Procalcitonin (0-0.5) ng/ml Urine Color Urine Appearance (Clear) Urine pH (4.5-7.5) Ur Specific Florence (1.000-1.030) Urine Protein (Negative) Urine Glucose (UA) (Negative) Urine Ketones (Negative) Urine Blood (Negative) Urine Nitrite (Negative) Urine Bilirubin (Negative) Urine Urobilinogen (Negative) Ur Leukocyte Esterase (Negative) Urine WBC (Auto) (0-5) /hpf Urine RBC (Auto) (0-2) /hpf U Hyaline Cast (Auto) (0-2) /lpf U Epithel Cells (Auto) (0-2) /hpf Urine Bacteria (Auto) (None Seen) Hyaline Casts (None Presnt) /lpf Stl C. cayetanensis PCR Not Detected (NotDetected) Stool Rotavirus A PCR Not Detected (NotDetected) Stl Adenov F 40/41 PCR Not Detected (NotDetected) Stool Astrovirus (PCR) Not Detected (NotDetected) Stool Campylobacter PCR Not Detected (NotDetected) Stl C. diff Tox B Gene Negative Cdiff Gene (Neg) Stool Cryptosporidium PCR Not Detected (NotDetected) Stl E.coli Shiga Tox PCR Not Detected (NotDetected) Stl Enterotoxigenic E PCR Not Detected (NotDetected) Stool EPEC (PCR) Not Detected (NotDetected) Stool EAEC (PCR) Not Detected (NotDetected) Stl E. histolytica PCR Not Detected (NotDetected) Stool Giardia Lamblia PCR Not Detected (NotDetected) Stool Salmonella PCR Not Detected (NotDetected) Stool Sapovirus (PCR) Not Detected (NotDetected) Stl P. shigelloides PCR Not Detected (NotDetected) Stl Shigella/EIEC PCR Not Detected (NotDetected) St Y.enterocolitica PCR Not Detected (NotDetected) Stool Vibrio (PCR) Not Detected (NotDetected) Stl Vibrio cholerae PCR Not Detected (NotDetected) Stl Norovirus GI/GII PCR Not Detected (NotDetected) 12/08/23 12/08/23 12/07/23 Range/Units 04:05 00:04 Unknown WBC 10.94 H D 24.48 H (4.8-10.8) K/ul RBC 3.81 L 4.68 L (4.70-6.10) M/uL Hgb 9.4 L 11.9 L (14.0-18.0) g/dl POC Hgb (14.0-18.0) g/dl Hct 28.9 L 35.6 L (42.0-52.0) % POC Hct (42-52) % MCV 75.9 L 76.1 L (80.0-100.0) fL MCH 24.7 L 25.4 (25.0-34.0) pg MCHC 32.5 33.4 (32.0-36.0) g/dL RDW Std Deviation 52.4 H 52.8 H (36.4-46.3) fL RDW Coeff of Mitchell 19.3 H 19.8 H (11.5-14.5) % Plt Count 218 362 (130-400) K/uL MPV 11.0 11.5 (9.4-12.4) fL Immature Gran % (Auto) 0.4 0.6 % Neut % (Auto) 73.1 82.5 % Lymph % (Auto) 11.6 8.1 % Wallace % (Auto) 12.8 8.5 % Eos % (Auto) 1.6 0.0 % Baso % (Auto) 0.5 0.3 % Neut # (Auto) 7.99 H 20.19 H (1.40-6.50) K/uL Lymph # (Auto) 1.27 1.99 (1.20-3.40) K/uL Wallace # (Auto) 1.40 H 2.07 H (0.11-0.59) K/uL Eos # (Auto) 0.18 0.01 (0.00-0.50) K/uL Baso # (Auto) 0.06 0.08 (0.00-0.20) K/uL Immature Gran # (Auto) 0.04 0.14 (0.01-0.20) K/uL Toxic Vacuolation 1+ Dohle Bodies 1+ Echinocytes 1+ PT 12.8 H (9.0-12.0) Seconds INR 1.2 H (0.9-1.1) APTT 37 H (21-31) Seconds PTT Ratio 1.4 VBG pH (7.36-7.41) VBG pCO2 (38-50) mmHg VBG pO2 mmHg VBG HCO3 mmol/L VBG O2 Saturation % VBG Base Excess mEq/L POC Sodium (135-144) mmol/L Sodium 132 L 128 L (136-145) mmol/L POC Potassium (3.3-5.0) mmol/L Potassium 2.9 L 3.7 (3.5-5.1) mmol/L POC Chloride (101-112) mmol/L Chloride 102 89 L (98-107) mmol/L Carbon Dioxide 19 L 20 L (21-32) mmol/L POC Total CO2 (24-31) mmol/L Anion Gap 11 19 H (3-11) POC Anion Gap (16-25) mmol/L POC BUN (7-18) mg/dl BUN 55 H 60 H (6-23) mg/dl Creatinine 2.53 H D 5.38 H* (0.6-1.4) mg/dl POC Creatinine (0.6-1.3) mg/dl Est Cr Clr Drug Dosing 38.8 18.3 ml/min eGFR 27.42 11.09 BUN/Creatinine Ratio 21.7 H 11.2 (10-20) Glucose 87 150 H (70-99(Fasting)) mg/dl POC Glucose 92 (70-99) mg/dl POC Glucose (other) (70-99) mg/dl Lactate 3.8 H* (0.4-2.0) mmol/L Calcium 7.6 L 8.5 L (8.6-10.3) mg/dl POC Ioniz Calcium Ruddy (1.12-1.32) mmol/l Magnesium 1.7 1.7 (1.7-2.4) mg/dl Iron 13 L (35-175) mcg/dl TIBC 253 (250-450) mcg/dl Unsaturated IBC 240 (155-355) mcg/dl Transferrin % Sat 5 L (20-50) % Ferritin 261.1 (8-388) ng/ml Total Bilirubin 0.7 1.0 (0.2-1.0) mg/dl Direct Bilirubin 0.4 H (0-0.2) mg/dl AST 10 L 13 (13-39) U/L ALT 9 12 (7-52) U/L Alkaline Phosphatase 79 107 H (34-104) U/L Lactate Dehydrogenase 164 (86-244) U/L Troponin I High Sens 16.7 (0-20) pg/ml Total Protein 5.8 L D 7.7 (6.0-8.3) gm/dl Albumin 2.7 L 3.6 (3.4-5.0) gm/dl Globulin 3.1 (2.5-4.0) gm/dl Albumin/Globulin Ratio 0.9 (0.9-2) Carcinoembryonic Ag (0-2.5) ng/ml Procalcitonin 35.60 H (0-0.5) ng/ml Urine Color Urine Appearance (Clear) Urine pH (4.5-7.5) Ur Specific Florence (1.000-1.030) Urine Protein (Negative) Urine Glucose (UA) (Negative) Urine Ketones (Negative) Urine Blood (Negative) Urine Nitrite (Negative) Urine Bilirubin (Negative) Urine Urobilinogen (Negative) Ur Leukocyte Esterase (Negative) Urine WBC (Auto) (0-5) /hpf Urine RBC (Auto) (0-2) /hpf U Hyaline Cast (Auto) (0-2) /lpf U Epithel Cells (Auto) (0-2) /hpf Urine Bacteria (Auto) (None Seen) Hyaline Casts (None Presnt) /lpf Stl C. cayetanensis PCR (NotDetected) Stool Rotavirus A PCR (NotDetected) Stl Adenov F 40/41 PCR (NotDetected) Stool Astrovirus (PCR) (NotDetected) Stool Campylobacter PCR (NotDetected) Stl C. diff Tox B Gene (Neg) Stool Cryptosporidium PCR (NotDetected) Stl E.coli Shiga Tox PCR (NotDetected) Stl Enterotoxigenic E PCR (NotDetected) Stool EPEC (PCR) (NotDetected) Stool EAEC (PCR) (NotDetected) Stl E. histolytica PCR (NotDetected) Stool Giardia Lamblia PCR (NotDetected) Stool Salmonella PCR (NotDetected) Stool Sapovirus (PCR) (NotDetected) Stl P. shigelloides PCR (NotDetected) Stl Shigella/EIEC PCR (NotDetected) St Y.enterocolitica PCR (NotDetected) Stool Vibrio (PCR) (NotDetected) Stl Vibrio cholerae PCR (NotDetected) Stl Norovirus GI/GII PCR (NotDetected) 12/07/23 12/07/23 12/07/23 Range/Units 19:52 19:37 16:05 WBC (4.8-10.8) K/ul RBC (4.70-6.10) M/uL Hgb (14.0-18.0) g/dl POC Hgb (14.0-18.0) g/dl Hct (42.0-52.0) % POC Hct (42-52) % MCV (80.0-100.0) fL MCH (25.0-34.0) pg MCHC (32.0-36.0) g/dL RDW Std Deviation (36.4-46.3) fL RDW Coeff of Mitchell (11.5-14.5) % Plt Count (130-400) K/uL MPV (9.4-12.4) fL Immature Gran % (Auto) % Neut % (Auto) % Lymph % (Auto) % Wallace % (Auto) % Eos % (Auto) % Baso % (Auto) % Neut # (Auto) (1.40-6.50) K/uL Lymph # (Auto) (1.20-3.40) K/uL Wallace # (Auto) (0.11-0.59) K/uL Eos # (Auto) (0.00-0.50) K/uL Baso # (Auto) (0.00-0.20) K/uL Immature Gran # (Auto) (0.01-0.20) K/uL Toxic Vacuolation Dohle Bodies Echinocytes PT (9.0-12.0) Seconds INR (0.9-1.1) APTT (21-31) Seconds PTT Ratio VBG pH (7.36-7.41) VBG pCO2 (38-50) mmHg VBG pO2 mmHg VBG HCO3 mmol/L VBG O2 Saturation % VBG Base Excess mEq/L POC Sodium (135-144) mmol/L Sodium 130 L (136-145) mmol/L POC Potassium (3.3-5.0) mmol/L Potassium 3.2 L (3.5-5.1) mmol/L POC Chloride (101-112) mmol/L Chloride 97 L (98-107) mmol/L Carbon Dioxide 21 (21-32) mmol/L POC Total CO2 (24-31) mmol/L Anion Gap 12 H (3-11) POC Anion Gap (16-25) mmol/L POC BUN (7-18) mg/dl BUN 62 H (6-23) mg/dl Creatinine 3.95 H D (0.6-1.4) mg/dl POC Creatinine (0.6-1.3) mg/dl Est Cr Clr Drug Dosing 24.9 ml/min eGFR 16.07 BUN/Creatinine Ratio 15.7 (10-20) Glucose 110 H (70-99(Fasting)) mg/dl POC Glucose 117 H (70-99) mg/dl POC Glucose (other) (70-99) mg/dl Lactate 1.9 (0.4-2.0) mmol/L Calcium 7.8 L (8.6-10.3) mg/dl POC Ioniz Calcium Ruddy (1.12-1.32) mmol/l Magnesium (1.7-2.4) mg/dl Iron (35-175) mcg/dl TIBC (250-450) mcg/dl Unsaturated IBC (155-355) mcg/dl Transferrin % Sat (20-50) % Ferritin (8-388) ng/ml Total Bilirubin (0.2-1.0) mg/dl Direct Bilirubin (0-0.2) mg/dl AST (13-39) U/L ALT (7-52) U/L Alkaline Phosphatase (34-104) U/L Lactate Dehydrogenase (86-244) U/L Troponin I High Sens (0-20) pg/ml Total Protein (6.0-8.3) gm/dl Albumin (3.4-5.0) gm/dl Globulin (2.5-4.0) gm/dl Albumin/Globulin Ratio (0.9-2) Carcinoembryonic Ag 29.1 H (0-2.5) ng/ml Procalcitonin (0-0.5) ng/ml Urine Color Urine Appearance (Clear) Urine pH (4.5-7.5) Ur Specific Florence (1.000-1.030) Urine Protein (Negative) Urine Glucose (UA) (Negative) Urine Ketones (Negative) Urine Blood (Negative) Urine Nitrite (Negative) Urine Bilirubin (Negative) Urine Urobilinogen (Negative) Ur Leukocyte Esterase (Negative) Urine WBC (Auto) (0-5) /hpf Urine RBC (Auto) (0-2) /hpf U Hyaline Cast (Auto) (0-2) /lpf U Epithel Cells (Auto) (0-2) /hpf Urine Bacteria (Auto) (None Seen) Hyaline Casts (None Presnt) /lpf Stl C. cayetanensis PCR (NotDetected) Stool Rotavirus A PCR (NotDetected) Stl Adenov F 40/41 PCR (NotDetected) Stool Astrovirus (PCR) (NotDetected) Stool Campylobacter PCR (NotDetected) Stl C. diff Tox B Gene (Neg) Stool Cryptosporidium PCR (NotDetected) Stl E.coli Shiga Tox PCR (NotDetected) Stl Enterotoxigenic E PCR (NotDetected) Stool EPEC (PCR) (NotDetected) Stool EAEC (PCR) (NotDetected) Stl E. histolytica PCR (NotDetected) Stool Giardia Lamblia PCR (NotDetected) Stool Salmonella PCR (NotDetected) Stool Sapovirus (PCR) (NotDetected) Stl P. shigelloides PCR (NotDetected) Stl Shigella/EIEC PCR (NotDetected) St Y.enterocolitica PCR (NotDetected) Stool Vibrio (PCR) (NotDetected) Stl Vibrio cholerae PCR (NotDetected) Stl Norovirus GI/GII PCR (NotDetected) 12/07/23 12/07/23 12/07/23 Range/Units 15:50 14:38 14:07 WBC (4.8-10.8) K/ul RBC (4.70-6.10) M/uL Hgb (14.0-18.0) g/dl POC Hgb 12.9 L (14.0-18.0) g/dl Hct (42.0-52.0) % POC Hct 38 L (42-52) % MCV (80.0-100.0) fL MCH (25.0-34.0) pg MCHC (32.0-36.0) g/dL RDW Std Deviation (36.4-46.3) fL RDW Coeff of Mitchell (11.5-14.5) % Plt Count (130-400) K/uL MPV (9.4-12.4) fL Immature Gran % (Auto) % Neut % (Auto) % Lymph % (Auto) % Wallace % (Auto) % Eos % (Auto) % Baso % (Auto) % Neut # (Auto) (1.40-6.50) K/uL Lymph # (Auto) (1.20-3.40) K/uL Wallace # (Auto) (0.11-0.59) K/uL Eos # (Auto) (0.00-0.50) K/uL Baso # (Auto) (0.00-0.20) K/uL Immature Gran # (Auto) (0.01-0.20) K/uL Toxic Vacuolation Dohle Bodies Echinocytes PT (9.0-12.0) Seconds INR (0.9-1.1) APTT (21-31) Seconds PTT Ratio VBG pH 7.31 L (7.36-7.41) VBG pCO2 18 L (38-50) mmHg VBG pO2 24 mmHg VBG HCO3 9 mmol/L VBG O2 Saturation < 60.0 % VBG Base Excess -15.7 mEq/L POC Sodium 127 L (135-144) mmol/L Sodium (136-145) mmol/L POC Potassium 3.7 (3.3-5.0) mmol/L Potassium (3.5-5.1) mmol/L POC Chloride 91 L (101-112) mmol/L Chloride (98-107) mmol/L Carbon Dioxide (21-32) mmol/L POC Total CO2 19 L (24-31) mmol/L Anion Gap (3-11) POC Anion Gap 22.0 (16-25) mmol/L POC BUN 54 H (7-18) mg/dl BUN (6-23) mg/dl Creatinine (0.6-1.4) mg/dl POC Creatinine 6.1 H* (0.6-1.3) mg/dl Est Cr Clr Drug Dosing ml/min eGFR BUN/Creatinine Ratio (10-20) Glucose (70-99(Fasting)) mg/dl POC Glucose (70-99) mg/dl POC Glucose (other) 149 H (70-99) mg/dl Lactate (0.4-2.0) mmol/L Calcium (8.6-10.3) mg/dl POC Ioniz Calcium Ruddy 1.02 L (1.12-1.32) mmol/l Magnesium (1.7-2.4) mg/dl Iron (35-175) mcg/dl TIBC (250-450) mcg/dl Unsaturated IBC (155-355) mcg/dl Transferrin % Sat (20-50) % Ferritin (8-388) ng/ml Total Bilirubin (0.2-1.0) mg/dl Direct Bilirubin (0-0.2) mg/dl AST (13-39) U/L ALT (7-52) U/L Alkaline Phosphatase (34-104) U/L Lactate Dehydrogenase (86-244) U/L Troponin I High Sens (0-20) pg/ml Total Protein (6.0-8.3) gm/dl Albumin (3.4-5.0) gm/dl Globulin (2.5-4.0) gm/dl Albumin/Globulin Ratio (0.9-2) Carcinoembryonic Ag (0-2.5) ng/ml Procalcitonin (0-0.5) ng/ml Urine Color Dark Yellow Urine Appearance Cloudy A (Clear) Urine pH 5.0 (4.5-7.5) Ur Specific [place] 1.020 (1.000-1.030) Urine Protein 2+ H (Negative) Urine Glucose (UA) Negative (Negative) Urine Ketones Trace H (Negative) Urine Blood Negative (Negative) Urine Nitrite Negative (Negative) Urine Bilirubin Negative (Negative) Urine Urobilinogen Negative (Negative) Ur Leukocyte Esterase 1+ H (Negative) Urine WBC (Auto) 6-10 H (0-5) /hpf Urine RBC (Auto) 11-20 H (0-2) /hpf U Hyaline Cast (Auto) >20 H (0-2) /lpf U Epithel Cells (Auto) 3-5 H (0-2) /hpf Urine Bacteria (Auto) None Seen (None Seen) Hyaline Casts Present A (None Presnt) /lpf Stl C. cayetanensis PCR (NotDetected) Stool Rotavirus A PCR (NotDetected) Stl Adenov F 40/41 PCR (NotDetected) Stool Astrovirus (PCR) (NotDetected) Stool Campylobacter PCR (NotDetected) Stl C. diff Tox B Gene (Neg) Stool Cryptosporidium PCR (NotDetected) Stl E.coli Shiga Tox PCR (NotDetected) Stl Enterotoxigenic E PCR (NotDetected) Stool EPEC (PCR) (NotDetected) Stool EAEC (PCR) (NotDetected) Stl E. histolytica PCR (NotDetected) Stool Giardia Lamblia PCR (NotDetected) Stool Salmonella PCR (NotDetected) Stool Sapovirus (PCR) (NotDetected) Stl P. shigelloides PCR (NotDetected) Stl Shigella/EIEC PCR (NotDetected) St Y.enterocolitica PCR (NotDetected) Stool Vibrio (PCR) (NotDetected) Stl Vibrio cholerae PCR (NotDetected) Stl Norovirus GI/GII PCR (NotDetected) (4) Sepsis Sepsis acute organ dysfunction status: unspecified Sepsis type: sepsis due to unspecified organism Qualified Code(s): A41.9 - Sepsis, unspecified organism
--- NOTE | 2023-12-08 14:42 | Hospitalist Progress Note ---
Date of Service December 08, 2023 Assessment & Plan (1) Sepsis: (2) Severe dehydration: (3) SBO (small bowel obstruction): Plan: Resolved (4) ALAYNA (acute kidney injury): (5) HTN (hypertension): (6) Diabetes mellitus, type II: (7) GERD (gastroesophageal reflux disease): (8) Microcytic anemia: (9) Iron deficiency anemia: (10) Elevated CEA: (11) Mass of peritoneum: (12) Mass of colon: Plan Patient has significantly improved with hydration. Patient is moving his bowels, no evidence of persistent bowel obstruction. Suspect patient more likely had significant ileus due to his severe dehydration, renal failure and electrolyte abnormalities. Continue IV hydration, IV fluids adjusted per nephrology Replace potassium Follow electrolytes and renal function Patient with microcytic anemia, appears to be iron deficient. Will start iron replacement at discharge Communication with surgical team, advancing diet Consult GI, communication with GI team, patient will need colonoscopy at some point in the near future, iron deficiency anemia, elevated CEA and questionable soft tissue density in the left colon. Raises concerns for colon malignancy. Activities as tolerated Okay to Simran and son at bedside and updated Admission and Anticipated Discharge Date Admission Date: December 07, 2023 Subjective Patient feeling significantly improved. Moving his bowels. Feels a little bit hungry. Physical Exam Physical Exam: Constitutional: Alert, nontoxic in appearance HEENT: Mucous membranes moist. Lungs: Clear to auscultation, decreased, no wheezes rales or rhonchi CV: S1-S2, regular Abdomen: Soft, some mild left-sided tenderness, no guarding, no rigidity, no distention, hypoactive to normal active bowel sounds Extremities: No significant edema Neuro: No focal deficits Psych: Cooperative, normal mood Results & Data Results & Data Vital Signs (Past 12 Hours) Vital Signs Temp Pulse Pulse Resp BP Pulse Ox O2 Del Method 12/08/23 12:25 36.5 C 90 20 104/66 96 Room Air 12/08/23 08:45 88 12/08/23 07:30 36.3 C L 91 H 20 94/57 L 99 Room Air Diagnostic Findings Reviewed imaging, laboratory and diagnostic studies. Pertinent findings as below WBCs 10.9, improved Hemoglobin 9.4, decreased suspect dilutional, unclear baseline Sodium 132 Potassium 2.9 Bicarb 19 Creatinine 2.53, significantly improved Iron 13 Trans ferritin 5% CEA 29.1 Stool studies negative. Reviewed CT abdomen report, questioning soft tissue density in the left posterior bowel (1) Sepsis Sepsis acute organ dysfunction status: unspecified Sepsis type: sepsis due to unspecified organism Qualified Code(s): A41.9 - Sepsis, unspecified organism
--- NOTE | 2023-12-08 16:14 | Nephrology Consultation ---
Date of Consultation December 08, 2023 Assessment & Plan (1) ALAYNA (acute kidney injury): Patient with the acute kidney injury due to ischemic ATN in setting of sepsis. Patient with variable blood pressure on admission systolic in the 50s. Admission creatinine of 5.38. Creatinine improving 2.5 today. Patient is making urine over 1.5 L today. Patient has hypokalemia of 2.9 today. - Will continue IV fluids but change to Plasmalyte at 125 mL/hour. - Continue to monitor potassium and supplement as needed. Patient has received 40 mEq of IV potassium today. He will likely need more. (2) Sepsis: Patient with the sepsis likely GI source. He is receiving cefepime and Fl agyl. There is also possibility of possible malignancy. Patient will need biopsies for diagnosis. (3) SBO (small bowel obstruction): Patient with SBO likely related to the colon mass. Surgery recommended conservative management. Will continue IV fluids as above. History of Present Illness Reason for Consultation: Acute kidney injury Requesting Physician: Fredy Mueller DO Attending Physician: Fredy Mueller DO History of Present Illness this is a 63-year-old male with history of type 2 diabetes, hypertension, obesity, hyperlipidemia, RANDALL, who was admitted with 1 week history of nausea, vomiting and diarrhea. He was found to have sepsis with systolic blood pressure in the 50s. Admission creatinine was 5.38. Patient also had a CT abdomen without contrast which showed small bowel obstruction as well as mesenteric densities suspicious for metastatic disease of unknown primary. Patient reporting 40 lb weight loss since March. He had normal creatinine in March 2023 of 0.9. Patient is receiving IV fluids and is making urine about 1.5 L today. He had hypokalemia with potassium of 2.9 and metabolic acidosis with bicarb of 19. He also has mild hyponatremia with sodium of 132. His son is a surgeon in [place]. Surgery is recommending conservative management at this point. Allergies Allergy/AdvReac Type Severity Reaction Status Date / Time Penicillins Allergy Unknown rash as a Verified 12/07/23 14:53 kid Home Medications Medication Instructions Recorded Confirmed Type atorvastatin 20 mg tablet 20 mg PO QAM 12/07/23 12/07/23 History dulaglutide 0.75 mg/0.5 mL 0.75 mg subcut WK 12/07/23 12/07/23 History subcutaneous pen injector (Trulicity) lisinopril 10 1 tab PO QAM 12/07/23 12/07/23 History mg-hydrochlorothiazide 12.5 mg tablet omeprazole 40 mg capsule,delayed 40 mg PO DAILYBB 12/07/23 12/07/23 History release ondansetron 4 mg disintegrating 4 mg translingual Q8 PRN Nausea 12/07/23 12/07/23 History tablet Patient History Medical History (Updated 12/08/23 @ 14:39 by Fredy Mueller DO) HTN (hypertension) GERD (gastroesophageal reflux disease) Obesity (BMI 30-39.9) Diabetes mellitus, type II Surgical History (Updated 12/07/23 @ 16:41 by Keiko Mooney PA-C) History of appendectomy Family History Other Liver cancer Social History Smoking Status: Never smoker Hx Alcohol Use: No Hx Substance Use: No Preferred Language: Faroese Communication Ability: Effective Air Traffic Coordinator Required: No Beliefs That Will Affect Care: None Current Living Situation: Spouse Other Information That Helps Us Care for You: No Feels Safe at Home: Yes Safety Concerns: Feels Safe At This Time Assistive Devices: None Review of Systems Review of Systems: All other systems were reviewed and negative except as noted in HPI Physical Exam Physical Exam: General exam: Appears comfortable, no acute distress HEENT: Pupils are equal and reactive to light Neck: No JVD, neck is supple trachea is midline Respiratory system: Clear breath sounds bilaterally. Gastrointestinal: Abdomen is soft, non distended, non tender, bowel sounds are present CVS: Regular rate and rhythm. No murmurs, rubs or gallops Musculoskeletal: No joint or muscle tenderness Extremities: Non tender, no edema, peripheral pulses are present Neuro: Oriented, no tremors, no focal neurological deficits Skin: No rashes Results & Data Vital Signs (Past 12 Hours) Vital Signs Temp Pulse Pulse Resp BP Pulse Ox O2 Del Method 12/08/23 15:21 36.6 C 93 H 19 96/65 L 96 Room Air 12/08/23 14:44 90 12/08/23 12:25 36.5 C 90 20 104/66 96 Room Air 12/08/23 08:45 88 12/08/23 07:30 36.3 C L 91 H 20 94/57 L 99 Room Air Laboratory Results 12/08/23 04:05 WBC 10.94 H D RBC 3.81 L MCV 75.9 L MCH 24.7 L MCHC 32.5 RDW Std Deviation 52.4 H RDW Coeff of Mitchell 19.3 H Plt Count 218 MPV 11.0 Albumin 2.7 L (2) Sepsis Sepsis acute organ dysfunction status: unspecified Sepsis type: sepsis due to unspecified organism Qualified Code(s): A41.9 - Sepsis, unspecified organism
[2023-12-08 16:23] LABS: BUN Creatinine Ratio 32.8 (10-20); Calcium 8.3 mg/dl (8.6-10.3); Creatinine Clr Calc Pharmacy 80.4 ml/min; Potassium 3.6 mmol/L (3.5-5.1)
[2023-12-09 07:22] LABS: Hematocrit (blood only) 29.1 % (42.0-52.0); Hemoglobin 9.6 g/dl (14.0-18.0); Mean Corpuscular Hemoglobin 25.1 pg (25.0-34.0); Platelet Count 227 K/uL (130-400); RDW Coefficient of Variation 19.4 % (11.5-14.5); RDW Standard Deviation 52.7 fL (36.4-46.3); Red Blood Count 3.83 M/uL (4.70-6.10); White Blood Count 7.87 K/ul (4.8-10.8)
[2023-12-09 07:58] LABS: BUN Creatinine Ratio 30.3 (10-20); Calcium 7.8 mg/dl (8.6-10.3); Creatinine Clr Calc Pharmacy 141.7 ml/min; Magnesium 1.7 mg/dl (1.7-2.4); Phosphorus 2.1 mg/dl (2.5-4.9); Potassium 3.3 mmol/L (3.5-5.1)
--- NOTE | 2023-12-09 09:07 | Surgery Progress Note ---
Date of Service December 09, 2023 Assessment & Plan (1) SBO (small bowel obstruction): Plan: It seems as though his questionable small bowel obstruction has resolved He can continue to have a diet from a surgical standpoint His renal function is also improved Plan is for colonoscopy Monday Surgery will follow along (2) Mass of peritoneum: Admission and Anticipated Discharge Date Admission Date: December 07, 2023 Subjective Patient seen and examined. Denies any abdominal pain. He is tolerating a diet without nausea and vomiting. Had a BM this morning. Afebrile. Review of Systems Constitutional: no fever and no chills Respiratory: no cough and no dyspnea Cardiovascular: no chest pain and no dyspnea on exertion Gastrointestinal: no abdominal pain, no nausea, no vomiting, no constipation and no diarrhea/loose stools Integumentary: no rash and no non-healing lesions Psychiatric: no behavioral changes and no anhedonia Physical Exam Constitutional: WD/WN, vitals as above Respiratory: normal respiratory effort, lungs clear to auscultation Cardiovascular: RRR, no murmur, no edema Gastrointestinal (Abdomen): normal bowel sounds, soft, nontender, no hepatosplenomegaly Skin: no rashes, warm and dry Psychiatric: A+Ox3, euthymic affect Results & Data Vital Signs (Past 12 Hours) Vital Signs Temp Pulse Resp BP Pulse Ox O2 Del Method 12/09/23 07:12 36.5 C 87 18 133/70 97 Room Air 12/08/23 21:30 Room Air PG Care Time/CCT Total # of Minutes Spent Total Time Spent with Patient: Total time spent is greater than 50% in coordination of care (as documented) at patient's floor/unit and/or counseling patient: Coding Level of Care Code 55300 SUB INP/OBS CARE 03/16MIN Diagnoses SBO (small bowel obstruction) K56.609 Mass of peritoneum K66.8
[2023-12-09] MEDS ORDERED: POTASSIUM PHOS 3 MMOL/1 ML INFUSION IV STA (12:11)
--- NOTE | 2023-12-09 12:12 | Nephrology Progress Note ---
Date of Service December 09, 2023 Assessment & Plan (1) ALAYNA (acute kidney injury): Plan: Now resolved Stage 3 nonoliguric acute kidney injury due to ischemic ATN in setting of sepsis. Patient with variable blood pressure on admission systolic in the 50s. Admission creatinine of 5.38. Creatinine improving to 2.5 to 0.8 today. Patient is making urine over 1.5 L today. Patient has ongoing hypokalemia at 3.3 today. - Will continue Plasmalyte at 125 mL/hour. also had a liter of D5W w/ 20 mEqK today - Continue to monitor potassium and supplement as needed. he will likely need further supplementation even after K today >> continue with this IV or po Will sign off continue daily BMP and K supplementation evaluate for need for K supplements at discharge given severity of ALAYNA, suggest hospital d/c visit w/ Dr Pratt 2 wks after d/c w/ BMP to be ordered by neph nurse and obtained no more than 72 hrs before OV suggest also checking bmp at PCP hosp d/c visit (2) Sepsis: Plan: Being covered now for sepsis likely GI source. He is receiving cefepime and Flagyl. concern w/ elevated CEA, L colon ST density > Patient will need biopsies for diagnosis. (3) SBO (small bowel obstruction): Plan: Patient with SBO likely related to the colon mass. Surgery recommended conservative management w/ colonoscopy on 12/10 Admission and Anticipated Discharge Date Admission Date: December 07, 20[address] w/o issue or assist; no abd pain, tolerating po; no edema or sob; no voiding concerns. seen on late afternoon rounds. Review of Systems 2 Review of Systems: All systems reviewed & are unremarkable except as noted in Subjective Physical Exam 2 Constitutional: well developed and well nourished ENMT: Mouth: + dry oral mucous membranes Respiratory: normal respiratory effort Auscultation: + diminished lung sounds Cardiovascular: RRR, no murmur, no edema Gastrointestinal (Abdomen): Inspection/Auscultation: normal bowel sounds P ercussion/Palpation: abdomen soft; abdomen nontender Musculoskeletal: Extremities: strength 5/5 throughout Skin: no rashes, warm and dry Neurologic: pratt, fluent speech, no tremor Results & Data Vital Signs (Past 12 Hours) Vital Signs Temp Pulse Resp BP Pulse Ox O2 Del Method 12/09/23 07:12 36.5 C 87 18 133/70 97 Room Air Laboratory Results 12/09/23 06:58 12/09/23 06:58 (2) Sepsis Sepsis acute organ dysfunction status: unspecified Sepsis type: sepsis due to unspecified organism Qualified Code(s): A41.9 - Sepsis, unspecified organism
--- NOTE | 2023-12-09 12:26 | Hospitalist Progress Note ---
Date of Service December 09, 2023 Assessment & Plan (1) Mass of peritoneum: (2) Mass of colon: (3) Severe dehydration: (4) SBO (small bowel obstruction): Plan: Resolved (5) ALAYNA (acute kidney injury): (6) HTN (hypertension): (7) Diabetes mellitus, type II: (8) GERD (gastroesophageal reflux disease): (9) Microcytic anemia: (10) Iron deficiency anemia: (11) Elevated CEA: (12) Colitis: (13) Severe sepsis with acute organ dysfunction: Plan Patient presented with severe sepsis with organ dysfunction possibly due to a colitis with evidence of a small bowel obstruction possibly due to a colon mass. Patient's sepsis has resolved Patient's acute kidney injury has resolved Patient still requiring electrolyte replacement today Continue empiric antibiotics for presumed colitis GI planning colonoscopy on Monday, colon prep as ordered through their service Okay to discontinue [place] Continue to monitor electrolytes, hemoglobin is stable initial drop in hemoglobin dilutional. Patient does have chronic microcytic anemia which raising concern for colon mass and chronic blood loss. and son updated at the bedside Admission and Anticipated Discharge Date Admission Date: December 07, 2023 Subjective Patient is feeling significantly improved. Tolerating his diet. Having bowel movements. Physical Exam Physical Exam: Constitutional: Alert, nontoxic, obese HEENT: Mucous membranes moist. Lungs: Clear to auscultation, decreased, no wheezes rales or rhonchi CV: S1-S2, regular Abdomen: Soft, nontender, nondistended, normal active bowel sounds Extremities: No significant edema Neuro: No focal deficits Psych: Cooperative, normal mood Results & Data Results & Data Vital Signs (Past 12 Hours) Vital Signs Temp Pulse Resp BP Pulse Ox O2 Del Method 12/09/23 07:12 36.5 C 87 18 133/70 97 Room Air Diagnostic Findings Reviewed imaging, laboratory and diagnostic studies. Pertinent findings as below. Blood cultures no growth to date WBCs 7.8 normalized Hemoglobin 9.6, stable Sodium 134 Potassium 3.3 Creatinine 0.76, completely normalized Phosphorus 2.1 Magnesium 1.7
[2023-12-09] MEDS: POT PHOSPHATE MONOBASIC W/ SOD TAB PO SCH (13:18)
[2023-12-09] MEDS: POTASSIUM CHLORIDE CRTAB 20 MEQ TABCR PO STA (13:18)
[2023-12-09] MEDS: POTASSIUM CHLORIDE CRTAB 20 MEQ TABCR PO ONE (17:35)
[2023-12-10 07:18] LABS: BUN Creatinine Ratio 16.1 (10-20); Creatinine Clr Calc Pharmacy 173.7 ml/min; Magnesium 1.6 mg/dl (1.7-2.4); Phosphorus 2.5 mg/dl (2.5-4.9); Potassium 3.5 mmol/L (3.5-5.1)
[2023-12-10] MEDS: MAGNESIUM SULFATE / D5W 1 GM/100 ML BAG IV SCH (07:58)
[2023-12-10] MEDS: MAGNESIUM OXIDE 400 MG TAB PO SCH (09:18)
[2023-12-10] MEDS: POTASSIUM CHLORIDE CRTAB 20 MEQ TABCR PO SCH (09:18)
--- NOTE | 2023-12-10 11:52 | Surgery Progress Note ---
Date of Service December 10, 2023 Assessment & Plan (1) SBO (small bowel obstruction): Plan: Continues to improve without signs of obstruction Plan is for colonoscopy Monday Surgery will follow along (2) Mass of peritoneum: Admission and Anticipated Discharge Date Admission Date: December 07, 2023 Subjective Patient seen and examined. Denies abdominal pain. Denies nausea or vomiting. Is having bowel movements. Review of Systems Constitutional: no fever and no chills Respiratory: no cough and no dyspnea Cardiovascular: no chest pain and no dyspnea on exertion Gastrointestinal: no abdominal pain, no nausea, no vomiting, no constipation and no diarrhea/loose stools Integumentary: no rash and no non-healing lesions Psychiatric: no behavioral changes and no anhedonia Physical Exam Constitutional: WD/WN, vitals as above Respiratory: normal respiratory effort, lungs clear to auscultation Cardiovascular: RRR, no murmur, no edema Gastrointestinal (Abdomen): normal bowel sounds, soft, nontender, no hepatosplenomegaly Skin: no rashes, warm and dry Psychiatric: A+Ox3, euthymic affect Results & Data Vital Signs (Past 12 Hours) Vital Signs Temp Pulse Resp BP Pulse Ox O2 Del Method 12/10/23 07:08 36.5 C 76 18 120/69 98 Room Air PG Care Time/CCT Total # of Minutes Spent Total Time Spent with Patient: Total time spent is greater than 50% in coordination of care (as documented) at patient's floor/unit and/or counseling patient: Coding Level of Care Code 62811 SUB INP/OBS CARE 03/16MIN Diagnoses SBO (small bowel obstruction) K56.609 Mass of peritoneum K66.8
--- NOTE | 2023-12-10 12:53 | Hospitalist Progress Note ---
Date of Service December 10, 2023 Assessment & Plan (1) Mass of peritoneum: (2) Mass of colon: (3) Severe dehydration: (4) SBO (small bowel obstruction): Plan: Resolved (5) ALAYNA (acute kidney injury): (6) HTN (hypertension): (7) Diabetes mellitus, type II: (8) GERD (gastroesophageal reflux disease): (9) Microcytic anemia: (10) Iron deficiency anemia: (11) Elevated CEA: (12) Colitis: (13) Severe sepsis with acute organ dysfunction: Plan Patient significantly improved. Tolerating his diet. Anticipating colonoscopy tomorrow Replace electrolytes Colonoscopy prep to start this evening, n.p.o. after midnight Encouraged activity today Admission and Anticipated Discharge Date Admission Date: December 07, 2023 Subjective Patient reports no acute issues overnight. Tolerating his diet. Moving his bowels. Physical Exam Physical Exam: Constitutional: Alert, nontoxic, obese HEENT: Mucous membranes moist. Lungs: Clear to auscultation, decreased, no wheezes rales or rhonchi CV: S1-S2, regular Abdomen: Soft, nontender, nondistended Extremities: No significant edema Neuro: No focal deficits Psych: Cooperative, normal mood Results & Data Results & Data Vital Signs (Past 12 Hours) Vital Signs Temp Pulse Resp BP Pulse Ox O2 Del Method 12/10/23 07:08 36.5 C 76 18 120/69 98 Room Air Diagnostic Findings Reviewed imaging, laboratory and diagnostic studies. Pertinent findings as below. Sodium 136 Potassium 3.5 Creatinine 0.62 Magnesium 1.6
[2023-12-10] MEDS: LAVAGE SOLUTION 4000ML PO SCH (17:22)
--- NOTE | 2023-12-11 07:11 | Anesthesiology Consultation ---
Date of Service December 11, 2023 Assessment & Plan (1) Acute renal failure: (2) ALAYNA (acute kidney injury): (3) SBO (small bowel obstruction): (4) Severe dehydration: (5) Sepsis: (6) Mass of peritoneum: (7) Mass of colon: Chart Review Chart Review: Acceptable Risk for Surgery Consults Requested none ASA ASA3 Proposed Anesthesia Anesthesia Type: MAC Risk / Benefits Reviewed With: PT / POA / Parent / Guardian, Accepts Plan and Informed Consent Obtained History Surgery Operation Date: 12/11/23 16:30 Proposed Procedures p Colonoscopy Dr. Willie Tapia MD Height/Weight Height: 6 ft 1 in Weight: 138.6 kg Allergies Allergy/AdvReac Type Severity Reaction Status Date / Time Penicillins Allergy Unknown rash as a Verified 12/07/23 14:53 kid Medications Home Medications Medication Instructions Recorded Confirmed Last Taken atorvastatin 20 mg tablet 20 mg PO QAM 12/07/23 12/07/23 Unknown dulaglutide 0.75 mg/0.5 mL 0.75 mg subcut WK 12/07/23 12/07/23 Unknown subcutaneous pen injector (Trulicity) lisinopril 10 1 tab PO QAM 12/07/23 12/07/23 Unknown mg-hydrochlorothiazide 12.5 mg tablet omeprazole 40 mg capsule,delayed 40 mg PO DAILYBB 12/07/23 12/07/23 Unknown release ondansetron 4 mg disintegrating 4 mg translingual Q8 PRN Nausea 12/07/23 12/07/23 Unknown tablet Active Medications Generic Name Dose Route Start Last Admin Trade Name Freq PRN Reason Stop Dose Admin Heparin Sodium (Porcine) 5,000 units 12/07/23 22:00 12/11/23 14:20 Heparin Sod 5,000 Unit/0.5 Ml Vial SQ 01/06/24 21:59 Not Given Q8 RANJIT Ceftriaxone Sodium 2,000 mg in 50 mls @ 100 mls/hr 12/07/23 18:30 12/10/23 18:48 Rocephin IV 12/17/23 18:29 Infused Q24H RANJIT Infusion Metronidazole 500 mg in 100 mls @ 100 mls/hr 12/07/23 23:00 12/11/23 07:45 Flagyl IV 12/17/23 22:59 Infused Q8H RANJIT Infusion Protocol Parenteral Electrolytes 1,000 mls @ 80 mls/hr 12/08/23 12:15 12/11/23 14:20 Plasma-Lyte A Ph 7.4 IV 01/07/24 12:14 Infused .[id number] RANJIT Infusion Sodium Chloride 500 mls @ 15 mls/hr 12/11/23 07:30 12/11/23 14:43 Nss IV 12/12/23 07:29 15 mls/hr .Q24H RANJIT Administration Insulin Aspart 0 units 12/08/23 16:30 12/11/23 12:58 Insulin Aspart Per Unit Charge SC 01/07/24 16:29 Not Given ACHS RANJIT Magnesium Oxide 400 mg 12/10/23 09:00 12/11/23 14:20 Magnesium Oxide 400 Mg Tab PO 01/09/24 08:59 Not Given BID RANJIT Polyethylene Glycol/Electrolytes 16 dose 12/10/23 16:00 12/10/23 17:22 Lavage Solution 4000ml PO 01/09/24 15:59 16 dose TODAY@1600 RANJIT Administration NPO Date Last Intake of Fluids: 12/11/23 Time Last Intake of Fluids: 01:00 Date Last Intake of Solids: 12/10/23 Time Last Intake of Solids: 12:00 Past Medical History Medical History HTN (hypertension) GERD (gastroesophageal reflux disease) Obesity (BMI 30-39.9) Diabetes mellitus, type II Exercise / Class Metabolic Activity II 4-5 Yardwork/Stairs/Walk up hill Past Family History Family History Other Liver cancer Past Surgical History Surgical History (Updated 12/11/23 @ 14:44 by Lisandra Corea DO) History of anal fistulotomy Hx of arthroscopic knee surgery History of appendectomy Past Anesthesia History No Hx of Anesthesia Complications and No Family Hx of Anesthesia Complications History of PONV No Hx of PONV and No Hx of Motion Sickness Social History Smoking Status: Never smoker Hx Alcohol Use: No Hx Substance Use: No Physical Exam Vital Signs Last Vital Signs Temp 36.3 C L 12/11/23 14:36 Pulse 84 12/11/23 14:36 Resp 18 12/11/23 14:36 BP 154/93 H 12/11/23 14:36 Pulse Ox 99 12/11/23 14:36 O2 Del Method Room Air 12/11/23 14:36 Constitutional + obese ENMT Mouth: no TMJ abnormality Thyromental Distance: > or= 3.5 Finger Breadths Mallampati Class: II Neck normal visual inspection, trachea midline, + thick neck and + facial hair; neck extension not limited Respiratory normal respiratory effort Auscultation: lungs clear to auscultation bilaterally Cardiovascular Rate/Rhythm: regular rate and regular rhythm Heart Sounds: no murmur Musculoskeletal Spine: normal cervical ROM Extremities: full ROM of extremities Neurologic moves all extremities Psychiatric Orientation: alert and oriented x 3 Testing Laboratory Results 12/11/23 07:15 12/11/23 07:15 PT 12.8 Seconds (9.0-12.0) H 12/07/23 Unknown INR 1.2 (0.9-1.1) H 12/07/23 Unknown APTT 37 Seconds (21-31) H 12/07/23 Unknown Urine Color Dark Yellow 12/07/23 15:50 Urine Appearance Cloudy (Clear) A 12/07/23 15:50 Urine pH 5.0 (4.5-7.5) 12/07/23 15:50 Ur Specific Ellerbe 1.020 (1.000-1.030) 12/07/23 15:50 Urine Protein 2+ (Negative) H 12/07/23 15:50 Urine Glucose (UA) Negative (Negative) 12/07/23 15:50 Urine Ketones Trace (Negative) H 12/07/23 15:50 Urine Nitrite Negative (Negative) 12/07/23 15:50 Ur Leukocyte Esterase 1+ (Negative) H 12/07/23 15:50 Urine WBC (Auto) 6-10 /hpf (0-5) H 12/07/23 15:50 Urine RBC (Auto) 11-20 /hpf (0-2) H 12/07/23 15:50 U Hyaline Cast (Auto) >20 /lpf (0-2) H 12/07/23 15:50 U Epithel Cells (Auto) 3-5 /hpf (0-2) H 12/07/23 15:50 Urine Bacteria (Auto) None Seen (None Seen) 12/07/23 15:50 12/07/23 14:19 Aerobic Blood Culture - Preliminary Blood No growth in Aerobic bottle after 48 hours. Anaerobic Blood Culture - Preliminary No growth in Anaerobic bottle after 48 hours. 12/07/23 14:10 Aerobic Blood Culture - Preliminary Blood No growth in Aerobic bottle after 48 hours. Anaerobic Blood Culture - Preliminary No growth in Anaerobic bottle after 48 hours. 12/11/23 12/11/23 12:09 06:03 POC Glucose 120 H 125 H Electrocardiogram Date: 12/07/23 Findings: + NSR @ (98bpm) and + poor R wave progression LAD low voltage Chest X-Ray Date: 12/07/23 Findings: + NAD (1) Acute renal failure Acute renal failure type: unspecified Qualified Code(s): N17.9 - Acute kidney failure, unspecified (5) Sepsis Sepsis acute organ dysfunction status: unspecified Sepsis type: sepsis due to unspecified organism Qualified Code(s): A41.9 - Sepsis, unspecified organism
[2023-12-11 07:53] LABS: Hematocrit (blood only) 28.4 % (42.0-52.0); Hemoglobin 9.1 g/dl (14.0-18.0); Mean Corpuscular Hemoglobin 24.9 pg (25.0-34.0); Mean Corpuscular Volume 77.8 fL (80.0-100.0); Mean Platelet Volume 10.6 fL (9.4-12.4); Platelet Count 220 K/uL (130-400); RDW Coefficient of Variation 19.6 % (11.5-14.5); RDW Standard Deviation 54.7 fL (36.4-46.3); Red Blood Count 3.65 M/uL (4.70-6.10); White Blood Count 6.86 K/ul (4.8-10.8)
[2023-12-11 08:10] LABS: BUN Creatinine Ratio 7.6 (10-20); Calcium 8.2 mg/dl (8.6-10.3); Creatinine Clr Calc Pharmacy 163.2 ml/min; Magnesium 1.7 mg/dl (1.7-2.4); Potassium 3.5 mmol/L (3.5-5.1)
--- NOTE | 2023-12-11 09:35 | History & Physical Bridge Note ---
Date of Service December 11, 2023 History & Physical Bridge Note I have examined the patient, reviewed the History & Physical and in the interval since the performance of the History & Physical I have noted the following changes of clinical significance: no changes noted. patient finished prep. He tells me stools are clear. no blood in the stool. no melena. no nausea, vomiting, abdominal pain, sob, chest pain. - will plan to proceed with colonoscopy for today. Supervising Physician Co-Signing Physician Notes I saw and examined this patient with our nurse practitioner and agree with her assessment and plan. Will proceed with colonoscopy to further evaluate possible primary colonic pathology to explain abnormal CT scan findings.
--- NOTE | 2023-12-11 10:19 | Surgery Progress Note ---
Date of Service December 11, 2023 Assessment & Plan (1) Abnormal CT scan, pelvis: (2) ALAYNA (acute kidney injury): Plan: resolved (3) SBO (small bowel obstruction): (4) Sepsis: (5) Severe dehydration: Plan: 63-year-old male with a history of diarrhea starting on November 29 with subsequent low appetite, fatigue, weakness, nausea and vomiting that started yesterday presenting to the emergency room with generalized weakness and was found to have significant hypotension with systolic blood pressure in the 50s. CT scan of the abdomen pelvis without contrast due to acute kidney injury showing dilated small intestine up to 4 cm however no transition zone concerning for possible partial small bowel obstruction. There is also evidence of mesenteric masses which could be consistent with metastatic disease of unknown primary. 12/11/2023 avss leukocytosis resolved Creatinine wnl + bowel function, no abdominal pain, n,v abdominal exam benign CT chest negative, CEA elevated Colonoscopy today Plan: No acute surgical intervention required. Await results of colonoscopy. If no abnormalities found would recommend IR for biopsy of mesenteric mass Continue medical management Discussed with Dr. Anguiano who agrees with above. Admission and Anticipated Discharge Date Admission Date: December 07, 2023 Subjective feeling okay just waiting for colonoscopy no abdominal pain no n,v tolerated soft diet over weekend no pain with bowel prep multiple bowel movements with bowel prep Physical Exam Constitutional: WD/WN, vitals as above + morbidly obese, cooperative and comfortable; no acute distress and not ill appearing Gastrointestinal (Abdomen): Inspection/Auscultation: abdomen normal to inspection; abdomen not distended Percussion/Palpation: abdomen soft; abdomen nontender, no guarding and abdomen not rigid Skin: no rashes, warm and dry Psychiatric: Orientation: alert and oriented x 3 Results & Data Vital Signs (Past 12 Hours) Vital Signs Temp Pulse Resp BP Pulse Ox O2 Del Method 12/11/23 07:23 36.4 C L 78 16 135/81 97 Room Air Laboratory Results 12/11/23 12/11/23 12/10/23 Range/Units 07:15 06:03 20:40 WBC 6.86 (4.8-10.8) K/ul RBC 3.65 L (4.70-6.10) M/uL Hgb 9.1 L (14.0-18.0) g/dl Hct 28.4 L (42.0-52.0) % MCV 77.8 L (80.0-100.0) fL MCH 24.9 L (25.0-34.0) pg MCHC 32.0 (32.0-36.0) g/dL RDW Std Deviation 54.7 H (36.4-46.3) fL RDW Coeff of Mitchell 19.6 H (11.5-14.5) % Plt Count 220 (130-400) K/uL MPV 10.6 (9.4-12.4) fL Sodium 137 (136-145) mmol/L Potassium 3.5 (3.5-5.1) mmol/L Chloride 103 (98-107) mmol/L Carbon Dioxide 27 (21-32) mmol/L Anion Gap 7 (3-11) BUN 5 L (6-23) mg/dl Creatinine 0.66 (0.6-1.4) mg/dl Est Cr Clr Drug Dosing 163.2 ml/min eGFR 104.09 BUN/Creatinine Ratio 7.6 L (10-20) Glucose 112 H (70-99(Fasting)) mg/dl POC Glucose 125 H 98 (70-99) mg/dl Calcium 8.2 L (8.6-10.3) mg/dl Magnesium 1.7 (1.7-2.4) mg/dl 12/10/23 12/10/23 Range/Units 16:37 11:56 WBC (4.8-10.8) K/ul RBC (4.70-6.10) M/uL Hgb (14.0-18.0) g/dl Hct (42.0-52.0) % MCV (80.0-100.0) fL MCH (25.0-34.0) pg MCHC (32.0-36.0) g/dL RDW Std Deviation (36.4-46.3) fL RDW Coeff of Mitchell (11.5-14.5) % Plt Count (130-400) K/uL MPV (9.4-12.4) fL Sodium (136-145) mmol/L Potassium (3.5-5.1) mmol/L Chloride (98-107) mmol/L Carbon Dioxide (21-32) mmol/L Anion Gap (3-11) BUN (6-23) mg/dl Creatinine (0.6-1.4) mg/dl Est Cr Clr Drug Dosing ml/min eGFR BUN/Creatinine Ratio (10-20) Glucose (70-99(Fasting)) mg/dl POC Glucose 121 H 129 H (70-99) mg/dl Calcium (8.6-10.3) mg/dl Magnesium (1.7-2.4) mg/dl (4) Sepsis Sepsis acute organ dysfunction status: unspecified Sepsis type: sepsis due to unspecified organism Qualified Code(s): A41.9 - Sepsis, unspecified organism
[2023-12-11 14:40] VITALS: TEMP 97.3
[2023-12-11] MEDS: SODIUM CHLORIDE 0.9% 500 ML IV SCH (14:43)
--- NOTE | 2023-12-11 15:22 | Anesthesiology Progress Note ---
Date of Service December 11, 2023 Anesthesia Post Procedure Vital Signs Vital Signs: Temp Pulse Resp BP Pulse Ox O2 Del Method 12/11/23 14:36 36.3 C L 84 18 154/93 H 99 Room Air 12/11/23 07:23 36.4 C L 78 16 135/81 97 Room Air 12/10/23 20:51 36.7 C 76 16 132/83 98 Room Air Pain Intensity Bilateral Lower Abdomen: Pain Intensity: 0 Transfer of Care Handoff Completed per policy Notes Mental Status: alert / awake / arousable Patient Amnestic to Procedure: Yes Nausea / Vomiting: adequately controlled Pain: adequately controlled Airway Patency, RR, SpO2: stable & adequate BP & HR: stable & adequate Hydration State: stable & adequate Anesthetic Complications: no major complications apparent and Pt Satisfied with anesthetic care
--- NOTE | 2023-12-11 15:39 | GI REPORT ---
[facility] Patient: KISHAN MANN : 1960 Sex at : Male Age: 63 Years Procedure: Colonoscopy Date: 12/11/2023 Attending Physician: Donte Tapia MD Referring MD: Ean Rodriguez; Fredy Mueller DO Indications: - Abnormal CT scan findings - Elevated CEA level Medications: - Monitored Anesthesia Care - See the Anesthesia note for documentation of the administered medications Complications: Procedure: - The adult colonoscope was introduced through the anus and advanced to the sigmoid colon. - The colonoscopy was performed without difficulty. - The quality of the bowel preparation was adequate. Findings: - The perianal examination was normal. - An infiltrative and polypoid completely obstructing large mass at 30 cm was found in the sigmoid colon. The mass was circumferential. No bleeding was present. Biopsies were taken with a cold forceps for histology. Area was tattooed with an injection of 2 mL of Spot (carbon black). - A 15 mm polyp was found in the sigmoid colon. The polyp was pedunculated. The polyp was removed with a hot snare. Resection and retrieval were complete. - No additional abnormalities were found on retroflexion. 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 Biopsied. Tattooed. - One 15 mm polyp in the sigmoid colon, removed with a hot snare. Resected and retrieved. Recommendation: - Await pathology results. Procedure Code(s): - 22973-78, Colonoscopy, flexible; with removal of tumor(s), polyp(s), or other lesion(s) by snare technique - 25780-00,52, Colonoscopy, flexible; with biopsy, single or multiple - 79726-29, Colonoscopy, flexible; with directed submucosal injection(s), any substance Diagnosis Code(s): - D49.0, Neoplasm of unspecified behavior of digestive system - K56.691, Other complete intestinal obstruction - D12.5, Benign neoplasm of sigmoid colon CPT(R) - 2023 copyright [employer]. All Rights Reserved. The CPT codes, CCI edits and ICD codes generated are intended as suggestions and were generated based on input data. These codes are preliminary and upon medical records coder review may be revised to meet current compliance and payer requirements. The provider is responsible for the final determination of appropriate codes, and modifiers. Donte Tapia MD This document has been electronically signed. Note Initiated:12/11/2023 Note Completed:12/11/2023 3:39 PM \\[id number]
[2023-12-11] MEDS: LIDOCAINE 2% 2 ML VIAL/AMP(20MG/ML) INFIL ONE (16:27)
[2023-12-11] MEDS: ENDOSCOPIC MARKER 5 ML SYR TOP ONE (16:27)
[2023-12-11] MEDS: PROPOFOL IV EMULSION 10 MG/ML 20 ML VIAL IV ONE (16:27)
[2023-12-11] MEDS: POTASSIUM CHLORIDE CRTAB 20 MEQ TABCR PO ONE (16:45)
--- NOTE | 2023-12-11 17:13 | Hospitalist Progress Note ---
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 Discussed need for probable keeping his diet to full liquids/pured type of foods to avoid obstruction by large chunks of food/stool. He expressed understanding. Discussed keeping his stools soft even with a regular stool softener. Activity as tolerated Ensure laboratory studies remained stable in a.m., anticipate discharge tomorrow if remains stable and tolerates diet No evidence of infectious colitis, can discontinue Rocephin and Flagyl at bedside agreeable to plan of care Patient states he most likely pursue surgical/oncological/radiation oncology care either at [place] or [facility] and will get referrals through his PCP. Admission and Anticipated Discharge Date Admission Date: December 07, 2023 Subjective Patient seen before and after colonoscopy. Tolerated procedure well. Aware of findings on colonoscopy. Denies any abdominal pain Physical Exam Physical Exam: Constitutional: Alert, nontoxic HEENT: Mucous membranes moist. Lungs: No respiratory distress, clear CV: S1-S2, regular Abdomen: Soft, nontender, nondistended Extremities: No significant edema Neuro: No focal deficits Psych: Cooperative, normal mood Results & Data Results & Data Vital Signs (Past 12 Hours) Vital Signs Temp Pulse Pulse Resp BP Pulse Ox O2 Del Method 12/11/23 16:46 68 16 132/85 98 Room Air 12/11/23 15:46 78 16 131/70 96 Room Air 12/11/23 15:31 76 76 16 121/69 96 Room Air 12/11/23 15:16 62 14 100/55 L 94 Room Air 12/11/23 14:36 36.3 C L 84 18 154/93 H 99 Room Air 12/11/23 07:23 36.4 C L 78 16 135/81 97 Room Air Diagnostic Findings Hemoglobin 9.1 Potassium 3.5 Magnesium 1.7 Creatinine 0.66 Colonoscopy report noted, large nearly obstructing circumferential sigmoid colon mass in addition to colon polyp
[2023-12-11] MEDS: DOCUSATE SODIUM/SENNA 50/8.6MG TAB PO SCH (20:22)
[2023-12-12 07:12] VITALS: BP 128/79; RESP 18; O2SAT 95
[2023-12-12 08:09] LABS: Hematocrit (blood only) 28.3 % (42.0-52.0); Hemoglobin 9.4 g/dl (14.0-18.0); Mean Corpuscular Hemoglobin 25.6 pg (25.0-34.0); Mean Corpuscular Hgb Conc 33.2 g/dL (32.0-36.0); Mean Corpuscular Volume 77.1 fL (80.0-100.0); Mean Platelet Volume 10.5 fL (9.4-12.4); Platelet Count 222 K/uL (130-400); RDW Coefficient of Variation 19.3 % (11.5-14.5); RDW Standard Deviation 53.6 fL (36.4-46.3); Red Blood Count 3.67 M/uL (4.70-6.10)
[2023-12-12 08:33] LABS: BUN Creatinine Ratio 4.6 (10-20); Calcium 8.3 mg/dl (8.6-10.3); Creatinine Clr Calc Pharmacy 165.7 ml/min; Magnesium 1.6 mg/dl (1.7-2.4); Potassium 3.7 mmol/L (3.5-5.1)
[2023-12-12] MEDS: MAGNESIUM OXIDE 400 MG TAB PO SCH (10:56)
[2023-12-12] MEDS: POTASSIUM CHLORIDE CRTAB 20 MEQ TABCR PO STA (10:57)
--- NOTE | 2023-12-12 13:01 | Surgery Progress Note ---
Date of Service December 12, 2023 Assessment & Plan (1) Mass of colon: Plan: agree with transfer to [facility] for resection Admission and Anticipated Discharge Date Admission Date: December 07, 2023 Results & Data Vital Signs (Past 12 Hours) Vital Signs Pulse Resp BP Pulse Ox O2 Del Method 12/12/23 07:11 68 18 128/79 95 Room Air
--- NOTE | 2023-12-12 15:11 | Discharge Summary ---
Discharge Summary Date of Service December 12, 2023 Principal Dx & Hospital Course #1 = Principal Diagnosis (1) Mass of peritoneum: (2) Mass of colon: (3) HTN (hypertension): (4) Severe dehydration: (5) SBO (small bowel obstruction): Resolved (6) ALAYNA (acute kidney injury): (7) Diabetes mellitus, type II: (8) GERD (gastroesophageal reflux disease): (9) Microcytic anemia: (10) Iron deficiency anemia: (11) Elevated CEA: (12) Colitis: (13) Severe sepsis with acute organ dysfunction: Plan Patient presented to the emergency room with what appeared to be severe sepsis. Patient was hypotensive, significant leukocytosis, acute renal failure and evidence of partial bowel obstruction. There was also evidence of mesenteric masses and possible: Soft tissue density. Patient was admitted to the hospital. Was aggressively resuscitated with IV fluids and placed on broad-spectrum IV antibiotics. Surgical, gastrointestinal, and nephrology consultations were obtained. With hydration the patient's renal failure quickly resolved. By the following morning his partial small bowel obstruction had also completely resolved and he was passing stool. His electrolytes were replaced as needed. His blood pressure stabilized. Over the course of the next several days his diet was advanced and he tolerated this well. His renal function returned to normal. Due to the concerns of the lesions noted in the mesentery Hematology consultation was also obtained. They did additional laboratory studies. CEA was significantly elevated. CT of the chest did not show any metastatic disease above the diaphragm. Gastroenterology recommended prep for colonoscopy. Patient underwent colonoscopy on 12/11/2023. Showed a large circumferential sigmoid mass that could not be passed with a colonoscopy scope. After colonoscopy antibiotics were discontinued as there is no evidence of colitis or other objective data to support a bacterial infection. Patient is post procedure course was uneventful. His diet was advanced. Due to the size of the colon mass was recommended he stay on a soft/pured/pudding type of diet. Both surgery and gastroenterology here at [facility] recommended outpatient colo rectal surgery and outpatient oncology follow-up once pathology was reported. Patient did request possible transfer to [facility] in [place]. This process was initiated. Had conversation with colorectal surgery at [place] who recommended outpatient follow-up in their office. We able to coordinate appointment with colorectal surgery in [place] next Monday. The patient had no events postprocedure he has been tolerating his diet. Patient was not started on iron supplementation at this time due to the fact that it can cause significant constipation which is something we want to avoid with his significant sigmoid colon mass. No ongoing bleeding in his bowels. Has been able to maintain adequate hydration. He will be discharged to follow-up with his outpatient providers and specialist. Notes For Next Care Provider Follow-up with colorectal surgery Follow-up with medical oncology Medication Changes From Visit Senna was added to can maintain soft stools Lisinopril/hydrochlorothiazide discontinued due to blood pressure and acute kidney injury. Admission HPI Per Admitting Provider This is a 63-year-old male with PMH of type 2 diabetes on Trulicity, dyslipidemia, RANDALL, hypertension, morbid obesity and other medical problems listed below who presents with 1 week of diarrhea, nausea and vomiting. Patient was seen in primary care office on 11/29 with diarrhea, abdominal cramping and loss of appetite that was felt to be consistent with gastroenteritis. GI symptoms, other than decreased appetite resolved after 1 day until yesterday, when he had 2 episodes of emesis. Describes the first as bilious and the second as a brown color. Denies hemetemesis. Then today endorses 3 large episodes of light brown, watery diarrhea prompting ED presentation. Was initially found to be severely hypotensive with BP in triage 50/32. Recevied 3L total IV fluid bolus with improved BP to 99/61. Just started to have urine output that is dark brown. Endorsing some vague discomfort in epigastrium but no pain. Denies F/C, lightheadedness, headache, CP, SOB, dysuria or constipation. No vomiting yet today and no recurrent diarrhea since arrival. Endorses a 40 pound weight loss since March but has also been on Trulicity. Denies personal known cancer history. Father + liver cancer. Admission Exam Per Admitting Provider See H&P Discharge Exam Constitutional: Alert, nontoxic, ambulating halls HEENT: Mucous membranes moist. Lungs: Clear to auscultation, decreased, no wheezes rales or rhonchi CV: S1-S2, regular Abdomen: Soft, nontender, nondistended Extremities: No significant edema Neuro: No focal deficits Psych: Cooperative, normal mood Updated Medication List Medication Instructions Recorded Confirmed Type atorvastatin 20 mg tablet 20 mg PO QAM 12/07/23 12/07/23 History dulaglutide 0.75 mg/0.5 mL 0.75 mg subcut WK 12/07/23 12/07/23 History subcutaneous pen injector (Trulicity) lisinopril 10 1 tab PO QAM 12/07/23 12/07/23 History mg-hydrochlorothiazide 12.5 mg tablet omeprazole 40 mg capsule,delayed 40 mg PO DAILYBB 12/07/23 12/07/23 History release ondansetron 4 mg disintegrating 4 mg translingual Q8 PRN Nausea 12/07/23 12/07/23 History tablet acetaminophen 325 mg tablet 650 mg (2 x 325 mg) PO Q4H PRN 12/11/23 Rx fever or pain #30 tabs sennosides 8.6 mg-docusate sodium 1 tab PO BID #30 tabs 12/11/23 Rx 50 mg tablet (Senokot-S) magnesium oxide 400 mg (241.3 mg 400 mg PO BID 3 days #6 tabs 12/12/23 Rx magnesium) tablet potassium chloride 20 mEq 40 meq (2 x 20 mEq) PO DAILY 3 12/12/23 Rx tablet,extended release(part/cryst) days #6 tabs Hospital Stay Data Consultations 12/07/23 15:38 ED Decision to Admit Stat 12/07/23 15:43 Consult General Surgery Routine 12/07/23 16:15 Consult Nephrology Routine 12/07/23 16:15 Consult Hematology Routine 12/08/23 12:11 Consult Gastroenterology Routine Procedures Performed Operation Date: 12/11/23 16:30 Actual Procedures p Colonoscopy Polypectomy - Donte Tapia MD Diagnostic Imagining Performed 12/07/23 14:09 CT abd pelvis wo con Stat 12/08/23 07:37 CT chest diagnostic wo con Routine Reviewed imaging, laboratory and diagnostic studies. Pertinent findings as below. Hemoglobin 9.4 stable Electrolytes within normal range Magnesium 1.6, repleted before discharge Stool BioFire negative Iron 13 TIBC 253 CEA 29.1 Pending Results Patient Have Any Pending Studies at Discharge: Yes Discharge Instructions Given to Patient (Per Discharging Provider) Continue ongoing evaluation for your colon mass. Keep appointment made with Dr. Augustin/Shelbie colorectal You will also need to see medical oncology as soon as pathology report is available Total Time Total Time Spent Total Time Spent (In Minutes): 45
[2023-12-12 16:07] VITALS: PULSE 76
[2023-12-12 18:41] LABS: A calco-baum cmplx NotReported Not Detected (NotDetected); Bact fragilis Not Reported Not Detected (NotDetected); Blood Culture Id Panel PCR Panel Negative (NotDetected); C auris Not Reported Not Detected (NotDetected); Calbicans Not Reported Not Detected (NotDetected); Candida glabrata Not Reported Not Detected (NotDetected); Candida krusei Not Reported Not Detected (NotDetected); Cneoformans/gatti Not Reported Not Detected (NotDetected); Cparapsilosis Not Reported Not Detected (NotDetected); E cloacae compx Not Reported Not Detected (NotDetected); Efaecalis Not Reported Not Detected (NotDetected); Efaecium Not Reported Not Detected (NotDetected); Enterobacterales Not Reported Not Detected (NotDetected); Escherichia coli Not Reported Not Detected (NotDetected); H influenzae Not Reported Not Detected (NotDetected); K aerogenes Not Reported Not Detected (NotDetected); Koxytoca Not Reported Not Detected (NotDetected); Kpneumoniae grp Not Reported Not Detected (NotDetected); Lmonocyt Not Reported Not Detected (NotDetected); N meningitidis Not Reported Not Detected (NotDetected); P aeruginosa Not Reported Not Detected (NotDetected); Proteus spp Not Reported Not Detected (NotDetected); Salmonella spp Not Reported Not Detected (NotDetected); Staph lugdunensis Not Reported Not Detected (NotDetected); Staph spp. Not Reported Not Detected (NotDetected); Staphaureus Not Reported Not Detected (NotDetected); Staphepi Not Reported Not Detected (NotDetected); Stenmaltophilia Not Reported Not Detected (NotDetected); Strep agal(GrpB) Not Reported Not Detected (NotDetected); Strep pneum Not Reported Not Detected (NotDetected); Strep pyog (GrpA) Not Reported Not Detected (NotDetected); Strep spp Not Reported Not Detected (NotDetected)
--- NOTE | 2023-12-12 19:22 | Communication Note ---
Date of Service: December 12, 2023 Notified by lab of abnormal blood CS result. Patient discharged today. anaerobic bottle on set positive. Gram Positive Bacilli Biofire without preliminary organism. Will relay to Dr. Mueller in a.m.
--- NOTE | 2023-12-13 15:18 | Communication Note ---
Date of Service: December 13, 2023 Phone call to patient updating him on the 1 of 2 blood cultures growing gram- positive bacilli. Patient has done well since going home. No fevers. High suspicion that blood culture is a contaminant, not positive until 5 days growth. Only 1 of 2 blood cultures. Will continue to monitor for final report Patient did have antibiotics while in the hospital. Patient given instructions to seek medical attention if he would start running a fever or have other constitutional symptoms. Patient expressed understanding of instructions and appreciative of update.
--- NOTE | 2023-12-13 15:43 | Coding Query ---
CODING QUERY To promote full compliance with coding requirements relating to patient care, provider participation is requested in all cases of supervisor particleboard uncertainty. Please assist us with the question(s) below: Discharge Summary: (1) Mass of peritoneum: (2) Mass of colon: (13) Severe sepsis with acute organ dysfunction: After colonoscopy antibiotics were discontinued as there is no evidence of colitis or other objective data to support a bacterial infection. COLONOSCOPY: Likely malignant completely obstructing tumor in the sigmoid colon. PATH: Adenoma with high grade dysplasia, suspicious for invasive adenocarcinoma Coding Question(s): 1--Can you please clarify if severe sepsis has been ruled in/ruled out? [ ] Sepsis ruled out, just SIRS [ } Sepsis ruled in/resolved Pls document source of infection [ ] Sepsis can't be ruled out-unknown source [ x ] Other __sepsis due to noninfectious source 2--Also, pls review the final pathology and clarify if clinically significant. [ x ] Colon Mass suspicious for adenocarcinoma [ ] Other Physician's Response(s): Thank you Jai Maxwell Principal Diagnosis: "that condition established after study, to be chiefly responsible for occasioning the admission of the patient to the hospital for care." Co-Existing Principal Diagnosis: "when two or more diagnoses equally meet the criteria for principal diagnosis as determined by the circumstances of admission, diagnostic work up, and/or therapy provided, and the Alphabetic Index, Tabular List, or another coding guideline does not provide sequencing direction, any one of the diagnoses may be sequenced first." "When the physician has documented what appears to be a current diagnosis in the body of the record, but has not included the diagnosis in the final diagnostic statement, the physician should be asked whether the diagnosis should be added." (Source Coding Clinic 2 QTR90. p3-4) [email or web address]
== END 2023-12-12 16:16 | disposition home or self-care (01) | DRG 871 ==
LOC: ED 13:41 → 4W 16:14 → SUATTDRO 16:14 → 4W 18:07 → 3N 12-08 21:19